=== PATIENT | male | born 1985 | race Caucasian/White ===

== ENCOUNTER 2019-04-12 15:59 | Emergency (ER) | payer OTHER, MEDICAID, SELFPAY ==
[2019-04-12 16:01] VITALS: BP 109/59; PULSE 71; RESP 18; TEMP 36.4; O2SAT 97; BMI 22.4
--- NOTE | 2019-04-12 16:31 | DI.CT.S_ITS ---
PROCEDURE: CT HEAD/BRAIN WO CON INDICATIONS: head pressure, hearing voices TECHNIQUE: Noncontrast 4.5 mm thick angled axial sections acquired from the foramen magnum to the vertex, with coronal and sagittal reformats. For radiation dose reduction, the following was used: automated exposure control, adjustment of mA and/or kV according to patient size. COMPARISON: None. FINDINGS: Image quality: Excellent. CSF spaces: Basal cisterns are patent. No extra-axial fluid collections. Ventricles are normal in size and shape. Brain: No midline shift. No intracranial masses or hemorrhage. Yanez-white matter interface is normal. Skull and face: Calvarium and visualized facial bones are intact, without suspicious lesions. Sinuses: Visualized sinuses and mastoids are clear. IMPRESSION: No acute intracranial process. Dictated by: Baljit Pryor M.D. on 04/12/2019 at 16:59 Approved by: Baljit Pryor M.D. on 04/12/2019 at 17:05
--- NOTE | 2019-04-12 17:26 | ED.NEUROSD ---
HPI - Neuro Symptoms/Deficit <SUSANNAH Villareal - Last Filed: 04/12/19 17:31> General Chief Complaint: Neuro Symptoms/Deficit Stated Complaint: head pressure Time Seen by Provider: 04/12/19 16:28 Source: patient Mode of arrival: ambulatory Limitations: no limitations History of Present Illness HPI Narrative: The patient is a 33 year male current smoker with history of opiate dependence and anxiety presents for chief complaint of head pressure. He states he has had head pressure for the past year. He states that the head pressures on the left side of his head. Waxes wanes. He has not tried any Tylenol or Motrin for it. He states that he comes in today as he is concerned about a tumor or some series etiology. He states that his worry about the head pressure is creating anxiety. He denies any seizures. Denies any nausea vomiting diarrhea. Denies any lightheadedness, dizziness, fevers, neck pain back pain abdominal pain or any other acute concerns. He states that the head pressure is not excessively bad today, he just wanted to get it checked out in order to help alleviate his anxiety. The patient denies any trauma. On Anticoagulants: No Related Data Home Medications Medication Instructions Recorded Confirmed No Known Home Medications 04/12/19 04/12/19 Allergies Allergy/AdvReac Type Severity Reaction Status Date / Time No Known Drug Allergies Allergy Verified 05/26/18 14:13 Review of Systems <SUSANNAH Villareal - Last Filed: 04/12/19 17:31> Review of Systems GENERAL: Denies chills, fatigue, malaise, fever, sweats. HEENT: See HPI RESPIRATORY: Denies dyspnea, cough, wheezing, hemoptysis, sputum. CARDIOVASCULAR: Denies chest pain, palpitations, orthopnea, edema, GASTROINTESTINAL: Denies nausea, vomiting, abdominal pain, diarrhea, constipation, melena. : Denies dysuria, frequency, incontinence, hematuria, urinary retention. MUSCULOSKELETAL: denies weakness, joint pain, or bony pain SKIN: Denies rash, skin lesions, or other NEUROLOGIC: Denies weakness, headache, numbness, change in speech, confusion, seizures, incoordination. PSYCHIATRIC: No concerning psychosocial issues. 12 point review of systems is negative except for those stated above PFSH <[facility] - Last Filed: 04/12/19 17:31> Social History Smoking Status: Current every day smoker Social History Smoking Status: Current every day smoker Exam <RAKESH Villareal - Last Filed: 04/12/19 17:31> Narrative Exam Narrative: GENERAL: This is a well-nourished, well-developed patient, no acute distress HEAD: Atraumatic. Normocephalic. No temporal or scalp tenderness. EYES: Pupils equal round and reactive. Extraocular motions intact. No scleral icterus. No injection or drainage. No nystagmus noted. ENT: Nose without bleeding, purulent drainage or septal hematoma. Throat without erythema, tonsillar hypertrophy or exudate. Uvula midline. Airway patent. NECK: Trachea midline. No JVD or lymphadenopathy. Supple, nontender, no meningeal signs. CARDIOVASCULAR: Regular rate and rhythm without murmurs, gallops, or rubs. RESPIRATORY: Clear to auscultation. Breath sounds equal bilaterally. No wheezes, rales, or rhonchi. No cough. No increased respiratory effort. No accessory muscle use. GASTROINTESTINAL: Abdomen soft, non-tender, nondistended. No hepato-splenomegaly, or palpable masses. No guarding. EXTREMITIES: No clubbing, cyanosis, or edema. No joint tenderness, effusion, or edema noted. BACK: Nontender without deformity or crepitance. No flank tenderness. NEURO: AOx3. Stable gait. Strength is equal upper and lower extremities bilaterally. No gross cranial nerve deficit. Clear speech. SKIN: No rash or erythema. Initial Vital Signs Initial Vital Signs: Vital Signs Temperature 97.6 F 04/12/19 16:01 Pulse Rate 71 04/12/19 16:01 Respiratory Rate 18 04/12/19 16:01 Blood Pressure 109/59 L 04/12/19 16:01 Pulse Oximetry 97 04/12/19 16:01 <Nichelle Ball DO - Last Filed: 04/12/19 19:16> Initial Vital Signs Initial Vital Signs: Vital Signs Temperature 97.6 F 04/12/19 16:01 Pulse Rate 71 04/12/19 16:01 Respiratory Rate 18 04/12/19 16:01 Blood Pressure 109/59 L 04/12/19 16:01 Pulse Oximetry 97 04/12/19 16:01 Course <RAKESH Villareal - Last Filed: 04/12/19 17:31> Orders Ordered: ED Orders 04/12/19 16:31 CT head/brain wo con Stat Vital Signs - 8 hr 04/12/19 16:01 04/12/19 17:55 04/12/19 17:56 Temperature 97.6 F Pulse Rate 71 58 L 58 L Respiratory Rate 18 18 Blood Pressure 109/59 L 104/61 Blood Pressure [Left Arm] 104/61 Pulse Oximetry 97 100 100 <Nichelle Ball DO - Last Filed: 04/12/19 19:16> Orders Ordered: ED Orders 04/12/19 16:31 CT head/brain wo con Stat Vital Signs - 8 hr 04/12/19 16:01 04/12/19 17:55 04/12/19 17:56 Temperature 97.6 F Pulse Rate 71 58 L 58 L Respiratory Rate 18 18 Blood Pressure 109/59 L 104/61 Blood Pressure [Left Arm] 104/61 Pulse Oximetry 97 100 100 MDM - Neuro Symptoms/Deficit <RAKESH Villareal - Last Filed: 04/12/19 17:31> Imaging Data CT scan - head: Radiologist's impression: [place] [address] CT Scan Report Signed Patient: Wale Todd KMR#: [id number] : 1985Acct:[id number] Age/Sex: 33 / MDate of Service: 04/12/19 Loc: ED Accession Number: [id number] Procedure: CT head/brain wo con Ordering Provider: Nichelle Blanchard PROCEDURE: CT HEAD/BRAIN WO CON INDICATIONS: head pressure, hearing voices TECHNIQUE: Noncontrast 4.5 mm thick angled axial sections acquired from the foramen magnum to the vertex, with coronal and sagittal reformats. For radiation dose reduction, the following was used: automated exposure control, adjustment of mA and/or kV according to patient size. COMPARISON: None. FINDINGS: Image quality: Excellent. CSF spaces: Basal cisterns are patent. No extra-axial fluid collections. Ventricles are normal in size and shape. Brain: No midline shift. No intracranial masses or hemorrhage. Yanez-white matter interface is normal. Skull and face: Calvarium and visualized facial bones are intact, without suspicious lesions. Sinuses: Visualized sinuses and mastoids are clear. IMPRESSION: No acute intracranial process. Dictated by: Baljit Pryor M.D. on 04/12/2019 at 16:59 Approved by: Baljit Pryor M.D. on 04/12/2019 at 17:05 [facility] Narrative Medical decision making narrative: The patient is a 33-year-old male who presents with a year of head pressure. He CT scan was normal. He has no neurological deficits. Given that this has been going on for urine no conservative measures have been tried, I strongly suggest that the patient try ibuprofen and/or Tylenol. Encouraged her to follow up with PCP in come back to the ER for any acute concerns such as seizure activity, concern for heart attack or stroke. No questions or concerns at discharge. The patient denies any pain medications such as Tylenol or Motrin throughout his stay in the emergency department. Discharge Plan Departure Patient Disposition: Home Clinical Impression: Headache Qualifiers: Headache type: unspecified Headache chronicity pattern: unspecified pattern Intractability: not intractable Qualified Code(s): R51 - Headache Discharge Date/Time: 04/12/19 17:56 Interventions: ED Discharge Assessment Last Done: 04/12/19 17:56 Instructions: DI for Headache Activity Restrictions/Additional Instructions: Your head CT had no acute findings. I suggest that you try Tylenol or Motrin for your pain. Please follow up with primary care provider. Please come back to the emergency department for any acute concerns such as seizure like activity, concern of heart attack or stroke. Prescriptions: No Action No Known Home Medications RF: 0 Referrals: Didier Dimas MD [Physician] - <Nichelle Ball DO - Last Filed: 04/12/19 19:16> Cosign ED Attending Cosignature Attestation: I was immediately available in the department for consultation. This documentation has been reviewed and I agree with assessment and plan. Supervised by Nichelle Ball DO
--- NOTE | 2019-04-12 17:31 | ED_ITS ---
HPI - Neuro Symptoms/Deficit <SUSANNAH Villareal - Last Filed: 04/12/19 17:31> General Chief Complaint: Neuro Symptoms/Deficit Stated Complaint: head pressure Time Seen by Provider: 04/12/19 16:28 Source: patient Mode of arrival: ambulatory Limitations: no limitations History of Present Illness HPI Narrative: The patient is a 33 year male current smoker with history of opiate dependence and anxiety presents for chief complaint of head pressure. He states he has had head pressure for the past year. He states that the head pressures on the left side of his head. Waxes wanes. He has not tried any Tylenol or Motrin for it. He states that he comes in today as he is concerned about a tumor or some series etiology. He states that his worry about the head pressure is creating anxiety. He denies any seizures. Denies any nausea vomiting diarrhea. Denies any lightheadedness, dizziness, fevers, neck pain back pain abdominal pain or any other acute concerns. He states that the head pressure is not excessively bad today, he just wanted to get it checked out in order to help alleviate his anxiety. The patient denies any trauma. On Anticoagulants: No Related Data Home Medications Medication Instructions Recorded Confirmed No Known Home Medications 04/12/19 04/12/19 Allergies Allergy/AdvReac Type Severity Reaction Status Date / Time No Known Drug Allergies Allergy Verified 05/26/18 14:13 Review of Systems <SUSANNAH Villareal - Last Filed: 04/12/19 17:31> Review of Systems GENERAL: Denies chills, fatigue, malaise, fever, sweats. HEENT: See HPI RESPIRATORY: Denies dyspnea, cough, wheezing, hemoptysis, sputum. CARDIOVASCULAR: Denies chest pain, palpitations, orthopnea, edema, GASTROINTESTINAL: Denies nausea, vomiting, abdominal pain, diarrhea, constipation, melena. : Denies dysuria, frequency, incontinence, hematuria, urinary retention. MUSCULOSKELETAL: denies weakness, joint pain, or bony pain SKIN: Denies rash, skin lesions, or other NEUROLOGIC: Denies weakness, headache, numbness, change in speech, confusion, seizures, incoordination. PSYCHIATRIC: No concerning psychosocial issues. 12 point review of systems is negative except for those stated above PFSH <[facility] - Last Filed: 04/12/19 17:31> Social History Smoking Status: Current every day smoker Social History Smoking Status: Current every day smoker Exam <RAKESH Villareal - Last Filed: 04/12/19 17:31> Narrative Exam Narrative: GENERAL: This is a well-nourished, well-developed patient, no acute distress HEAD: Atraumatic. Normocephalic. No temporal or scalp tenderness. EYES: Pupils equal round and reactive. Extraocular motions intact. No scleral icterus. No injection or drainage. No nystagmus noted. ENT: Nose without bleeding, purulent drainage or septal hematoma. Throat without erythema, tonsillar hypertrophy or exudate. Uvula midline. Airway patent. NECK: Trachea midline. No JVD or lymphadenopathy. Supple, nontender, no meningeal signs. CARDIOVASCULAR: Regular rate and rhythm without murmurs, gallops, or rubs. RESPIRATORY: Clear to auscultation. Breath sounds equal bilaterally. No wheezes, rales, or rhonchi. No cough. No increased respiratory effort. No accessory muscle use. GASTROINTESTINAL: Abdomen soft, non-tender, nondistended. No hepato- splenomegaly, or palpable masses. No guarding. EXTREMITIES: No clubbing, cyanosis, or edema. No joint tenderness, effusion, or edema noted. BACK: Nontender without deformity or crepitance. No flank tenderness. NEURO: AOx3. Stable gait. Strength is equal upper and lower extremities bilaterally. No gross cranial nerve deficit. Clear speech. SKIN: No rash or erythema. Initial Vital Signs Initial Vital Signs: Vital Signs Temperature 97.6 F 04/12/19 16:01 Pulse Rate 71 04/12/19 16:01 Respiratory Rate 18 04/12/19 16:01 Blood Pressure 109/59 L 04/12/19 16:01 Pulse Oximetry 97 04/12/19 16:01 <Nichelle Ball DO - Last Filed: 04/12/19 19:16> Initial Vital Signs Initial Vital Signs: Vital Signs Temperature 97.6 F 04/12/19 16:01 Pulse Rate 71 04/12/19 16:01 Respiratory Rate 18 04/12/19 16:01 Blood Pressure 109/59 L 04/12/19 16:01 Pulse Oximetry 97 04/12/19 16:01 Course <RAKESH Villareal - Last Filed: 04/12/19 17:31> Orders Ordered: ED Orders 04/12/19 16:31 CT head/brain wo con Stat Vital Signs - 8 hr 04/12/19 16:01 04/12/19 17:55 04/12/19 17:56 Temperature 97.6 F Pulse Rate 71 58 L 58 L Respiratory Rate 18 18 Blood Pressure 109/59 L 104/61 Blood Pressure [Left Arm] 104/61 Pulse Oximetry 97 100 100 <Nichelle Ball DO - Last Filed: 04/12/19 19:16> Orders Ordered: ED Orders 04/12/19 16:31 CT head/brain wo con Stat Vital Signs - 8 hr 04/12/19 16:01 04/12/19 17:55 04/12/19 17:56 Temperature 97.6 F Pulse Rate 71 58 L 58 L Respiratory Rate 18 18 Blood Pressure 109/59 L 104/61 Blood Pressure [Left Arm] 104/61 Pulse Oximetry 97 100 100 MDM - Neuro Symptoms/Deficit <RAKESH Villareal - Last Filed: 04/12/19 17:31> Imaging Data CT scan - head: Radiologist's impression: [place] [address] CT Scan Report Signed Patient: Wale Todd KMR#: [id number] : 1985Acct:[id number] Age/Sex: 33 / MDate of Service: 04/12/19 Loc: ED Accession Number: [id number] Procedure: CT head/brain wo con Ordering Provider: Nichelle Blanchard PROCEDURE: CT HEAD/BRAIN WO CON INDICATIONS: head pressure, hearing voices TECHNIQUE: Noncontrast 4.5 mm thick angled axial sections acquired from the foramen magnum to the vertex, with coronal and sagittal reformats. For radiation dose reduction, the following was used: automated exposure control, adjustment of mA and/or kV according to patient size. COMPARISON: None. FINDINGS: Image quality: Excellent. CSF spaces: Basal cisterns are patent. No extra-axial fluid collections. Ventricles are normal in size and shape. Brain: No midline shift. No intracranial masses or hemorrhage. Yanez-white matter interface is normal. Skull and face: Calvarium and visualized facial bones are intact, without suspicious lesions. Sinuses: Visualized sinuses and mastoids are clear. IMPRESSION: No acute intracranial process. Dictated by: Baljit Pryor M.D. on 04/12/2019 at 16:59 Approved by: Baljit Pryor M.D. on 04/12/2019 at 17:05 [facility] Narrative Medical decision making narrative: The patient is a 33-year-old male who presents with a year of head pressure. He CT scan was normal. He has no neurological deficits. Given that this has been going on for urine no conservative measures have been tried, I strongly suggest that the patient try ibuprofen and/or Tylenol. Encouraged her to follow up with PCP in come back to the ER for any acute concerns such as seizure activity, concern for heart attack or stroke. No questions or concerns at discharge. The patient denies any pain medications such as Tylenol or Motrin throughout his stay in the emergency department. Discharge Plan Departure Patient Disposition: Home Clinical Impression: Headache Qualifiers: Headache type: unspecified Headache chronicity pattern: unspecified pattern Intractability: not intractable Qualified Code(s): R51 - Headache Discharge Date/Time: 04/12/19 17:56 Interventions: ED Discharge Assessment Last Done: 04/12/19 17:56 Instructions: DI for Headache Activity Restrictions/Additional Instructions: Your head CT had no acute findings. I suggest that you try Tylenol or Motrin for your pain. Please follow up with primary care provider. Please come back to the emergency department for any acute concerns such as seizure like activity, concern of heart attack or stroke. Prescriptions: No Action No Known Home Medications RF: 0 Referrals: Didier Dimas MD [Physician] - <Nichelle Ball DO - Last Filed: 04/12/19 19:16> Cosign ED Attending Cosignature Attestation: I was immediately available in the department for consultation. This documentation has been reviewed and I agree with assessment and plan. Supervised by Nichelle Ball DO
[2019-04-12 17:55] VITALS: BP 104/61; PULSE 58; O2SAT 100
[2019-04-12 17:56] VITALS: BP 104/61; PULSE 58; RESP 18; O2SAT 100
== END 2019-04-12 17:56 | disposition home or self-care (01) ==
PROVIDERS: Emergency Provider Nurse Practitioner Family
DX: R51 Headache (principal)
CPT/HCPCS: 70450; 99282; 99284

== ENCOUNTER 2019-04-28 18:44 | Emergency (ER) | payer OTHER, MEDICAID, SELFPAY ==
[2019-04-28 18:52] VITALS: BP 159/77; PULSE 112; RESP 18; TEMP 36.9; O2SAT 97; BMI 22.4
--- NOTE | 2019-04-28 19:39 | ED.HA ---
HPI - Headache <RAKESH Villareal - Last Filed: 04/28/19 19:54> General Chief Complaint: Headache Stated Complaint: migraine Time Seen by Provider: 04/28/19 18:57 Source: patient Mode of arrival: ambulatory Limitations: no limitations History of Present Illness HPI Narrative: The patient is a 33-year-old male current smoker with history of headache and continuous opiate dependence who presents with a chief complaint of headache for the past several months as well as concerned about a broken tooth and being ?hypnotized. He denies any fevers nausea vomiting or diarrhea. He states he recently started smoking some new marijuana and think this might be related to it. The patient was evaluated for headache earlier this month and had a negative head CT. He has not taken any Tylenol or Motrin. He has not followed up with primary care provider. He states he broke his tooth 2 days ago. He states he was on his way home and it fell out. He states that the pain radiates from his tooth. He states that he has not used any drugs or alcohol other than marijuana. Related Data Home Medications Medication Instructions Recorded Confirmed No Known Home Medications 04/12/19 04/28/19 Allergies Allergy/AdvReac Type Severity Reaction Status Date / Time No Known Drug Allergies Allergy Verified 04/28/19 18:52 Review of Systems <RAKESH Villareal - Last Filed: 04/28/19 19:54> Review of Systems GENERAL: Denies chills, fatigue, malaise, fever, sweats. HEENT: See HPI RESPIRATORY: Denies dyspnea, cough, wheezing, hemoptysis, sputum. CARDIOVASCULAR: Denies chest pain, palpitations, orthopnea, edema, GASTROINTESTINAL: Denies nausea, vomiting, abdominal pain, diarrhea, constipation, melena. : Denies dysuria, frequency, incontinence, hematuria, urinary retention. MUSCULOSKELETAL: denies weakness, joint pain, or bony pain SKIN: Denies rash, skin lesions, or other NEUROLOGIC: See HPI PSYCHIATRIC: No concerning psychosocial issues. 12 point review of systems is negative except for those stated above PFSH <RAKESH Villareal - Last Filed: 04/28/19 19:54> Social History Smoking Status: Current every day smoker Exam <RAKESH Villareal - Last Filed: 04/28/19 19:54> Narrative Exam Narrative: GENERAL: Unkempt young male in no acute distress EYES: Pupils equal round and reactive. Extraocular motions intact. No scleral icterus. No injection or drainage. ENT: Nose without bleeding, purulent drainage or septal hematoma. Throat without erythema, tonsillar hypertrophy or exudate. Uvula midline. Airway patent. Broken 2nd molar left lower jaw NECK: Trachea midline. No JVD or lymphadenopathy. Supple, nontender, no meningeal signs. CARDIOVASCULAR: Regular rate and rhythm RESPIRATORY: Coarse to auscultation. Breath sounds equal bilaterally. No wheezes, rales, or rhonchi. No cough on exam. SKIN: No rash or erythema of visible skin. Initial Vital Signs Initial Vital Signs: Vital Signs Temperature 98.5 F 04/28/19 18:52 Pulse Rate 112 H 04/28/19 18:52 Respiratory Rate 18 04/28/19 18:52 Blood Pressure 159/77 H 04/28/19 18:52 Pulse Oximetry 97 04/28/19 18:52 <Carlyle Carrillo DO - Last Filed: 04/28/19 21:55> Initial Vital Signs Initial Vital Signs: Vital Signs Temperature 98.5 F 04/28/19 18:52 Pulse Rate 112 H 04/28/19 18:52 Respiratory Rate 18 04/28/19 18:52 Blood Pressure 159/77 H 04/28/19 18:52 Pulse Oximetry 97 04/28/19 18:52 Scores <RAKESH Villareal - Last Filed: 04/28/19 19:54> GCS [place] coma scale eye opening: Spontaneous Rosmery coma scale verbal response: Orientated [place] coma scale motor response: Obey commands [place] coma scale total score: 15 Course <RAKESH Villareal - Last Filed: 04/28/19 19:54> Vital Signs - 8 hr 04/28/19 18:52 Temperature 98.5 F Pulse Rate 112 H Respiratory Rate 18 Blood Pressure 159/77 H Pulse Oximetry 97 <Carlyle Carrillo DO - Last Filed: 04/28/19 21:55> Vital Signs - 8 hr 04/28/19 18:52 Temperature 98.5 F Pulse Rate 112 H Respiratory Rate 18 Blood Pressure 159/77 H Pulse Oximetry 97 MDM - Headache <Nichelle Blanchard, PATIENT CARE-[facility] - Last Filed: 04/28/19 19:54> MDM Narrative Medical decision making narrative: The patient is a 33-year-old male who presents with various complaints including headache, fear of being possessed, broken tooth. I discussed at length use of pain medications such as Toradol, antibiotics for dental infection, medication help him calm down. However the patient requested another CT scan for his head. I stated that since he just had 1 earlier this month, we would have to try medications 1st. The patient then stated he might leave if I would not do a CT scan immediately. I reiterated that I would not be ordering a CT scan immediately and left to order medications his headache. The patient then walked out of the department when I was outside of the room. He left against medical advice. Discharge Plan Departure Patient Disposition: Left Against Medical Advice Clinical Impression: Headache, Left against medical advice Discharge Date/Time: 04/28/19 19:21 Interventions: ED Discharge Assessment Last Done: 04/28/19 19:18 Prescriptions: No Action No Known Home Medications RF: 0 Stand Alone Forms: Against Medical Advice <Carlyle Carrillo DO - Last Filed: 04/28/19 21:55> [place] ED Attending Kristenature Attestation: I was available for consultation during this patient's emergency department encounter
== END 2019-04-28 19:21 | disposition left against medical advice (07) ==
PROVIDERS: Emergency Provider Nurse Practitioner Family
DX: R51 Headache (principal); Z53.21 Procedure and treatment not carried out due to patient leaving prior to being seen by health care provider
CPT/HCPCS: 99282

== ENCOUNTER 2019-06-09 19:31 | Emergency (ER) | payer OTHER, MEDICAID, SELFPAY ==
[2019-06-09 19:37] VITALS: BP 151/91; PULSE 125; RESP 16; TEMP 36.5; O2SAT 99; BMI 23.0
--- NOTE | 2019-06-09 19:38 | DI.RAD.S_ITS ---
PROCEDURE: XR FINGER LT MIN 2V INDICATIONS: table saw injury TECHNIQUE: AP hand, 2 views of the left second finger(s) acquired. COMPARISON: None. FINDINGS: Bones: There is a laceration/fracture of the distal tuft of the left second digit. No other fracture or dislocation. Soft tissues: No suspicious soft tissue calcifications. No unexpected radiopaque foreign bodies. IMPRESSION: Laceration/fracture of the distal phalanx of the left second digit. Dictated by: Sherin Jerry M.D. on 06/09/2019 at 20:03 Approved by: Sherin Jerry M.D. on 06/09/2019 at 20:04
--- NOTE | 2019-06-09 20:11 | ED.WOUNDLAC ---
HPI - Wound/Laceration <RAKESH Villareal - Last Filed: 06/09/19 21:20> General Chief Complaint: Wound/Laceration Stated Complaint: states cut the tip of his index finger left hand Time Seen by Provider: 06/09/19 19:33 Source: patient Mode of arrival: Ambulatory Limitations: no limitations History of Present Illness HPI narrative: The patient is a 33-year-old male current smoker with history of headaches who presents for chief complaint of a laceration to his left index finger. He states he cut using a table saw. He states it happened 45 minutes prior to arrival. He is not sure when his last tetanus was. He states he has full range of motion. He states he wants a bandage and to leave. Related Data Previous Rx's Medication Instructions Recorded cephalexin 500 mg PO QID #40 cap 06/09/19 Allergies Allergy/AdvReac Type Severity Reaction Status Date / Time No Known Drug Allergies Allergy Verified 04/28/19 18:52 Review of Systems <RAKESH Villareal - Last Filed: 06/09/19 21:20> Review of Systems Narrative: GENERAL: Denies chills, fatigue, malaise, fever, sweats. HEENT: Denies sinus pain, ear pain, sore throat, difficulty swallowing, dizziness. RESPIRATORY: Denies dyspnea, cough, wheezing, hemoptysis, sputum. CARDIOVASCULAR: Denies chest pain, palpitations, orthopnea, edema, GASTROINTESTINAL: Denies nausea, vomiting, abdominal pain, diarrhea, constipation, melena. : Denies dysuria, frequency, incontinence, hematuria, urinary retention. MUSCULOSKELETAL: See HPI SKIN: See HPI NEUROLOGIC: Denies weakness, headache, numbness, change in speech, confusion, seizures, incoordination. PSYCHIATRIC: No concerning psychosocial issues. 12 point review of systems is negative except for those stated above PFSH <RAKESH Villareal - Last Filed: 06/09/19 21:20> Social History Smoking Status: Current every day smoker Exam <RAKESH Villareal - Last Filed: 06/09/19 21:20> Narrative Exam Narrative: GENERAL: This is a well-nourished, well-developed patient, appears anxious HEAD: Atraumatic. Normocephalic. No temporal or scalp tenderness. EYES: Pupils equal round and reactive. Extraocular motions intact. No scleral icterus. No injection or drainage. ENT: Nose without bleeding, purulent drainage or septal hematoma. Throat without erythema, tonsillar hypertrophy or exudate. Uvula midline. Airway patent. NECK: Trachea midline. No JVD or lymphadenopathy. Supple, nontender, no meningeal signs. CARDIOVASCULAR: Tachycardic rate and regular rhythm RESPIRATORY no cough. No increased respiratory effort. No accessory muscle use. EXTREMITIES: Full range of motion noted left index finger. Laceration noted to tip of left index finger, with nail involvement. Oozing blood. Controlled bleeding. BACK: Nontender without deformity or crepitance. No flank tenderness. NEURO: AOx3. SKIN: See extremity exam Initial Vital Signs Initial Vital Signs: Vital Signs Temperature 97.7 F 06/09/19 19:37 Pulse Rate 125 H 06/09/19 19:37 Respiratory Rate 16 06/09/19 19:37 Blood Pressure 151/91 H 06/09/19 19:37 Pulse Oximetry 99 06/09/19 19:37 <Carlyle Carrillo DO - Last Filed: 06/09/19 21:22> Initial Vital Signs Initial Vital Signs: Vital Signs Temperature 97.7 F 06/09/19 19:37 Pulse Rate 125 H 06/09/19 19:37 Respiratory Rate 16 06/09/19 19:37 Blood Pressure 151/91 H 06/09/19 19:37 Pulse Oximetry 99 06/09/19 19:37 Procedures <RAKESH Villareal - Last Filed: 06/09/19 21:20> Orthopedic Splinting/Casting Injury #1: Side: left Upper Extremity Injury Location: finger Post splinting neuro exam: intact Post splinting vascular exam: intact Placed by: Nursing Course <RAKESH Villareal - Last Filed: 06/09/19 21:20> Orders Ordered: ED Orders 06/09/19 19:38 XR finger LT min 2V Stat Discontinued Medications Cefazolin Sodium (Keflex 250 Mg Prepack) 1 bottle MISC SEEINSTR ONE Stop: 06/09/19 21:13 Diphtheria/Tetanus/Acell Pertussis (Adacel) 0.5 ml IM .ONCE ONE Stop: 06/09/19 19:41 Last Admin: 06/09/19 20:21 Dose: 0.5 ml Documented by: MEGAN Cefazolin Sodium 2 gm/ Sodium (Chloride) 100 mls @ 200 mls/hr IV NOW ONE Stop: 06/09/19 20:13 Last Infusion: 06/09/19 21:13 Dose: 0 mls/hr Documented by: Admin: 06/09/19 20:38 Dose: 200 mls/hr Documented by: MEGAN Vital Signs Vital signs: Vital Signs - 8 hr 06/09/19 19:37 06/09/19 21:21 Temperature 97.7 F Pulse Rate 125 H 109 H Respiratory Rate 16 16 Blood Pressure 151/91 H Blood Pressure [Right Arm] 131/76 Pulse Oximetry 99 100 <Carlyle Carrillo DO - Last Filed: 06/09/19 21:22> Orders Ordered: ED Orders 06/09/19 19:38 XR finger LT min 2V Stat Discontinued Medications Cefazolin Sodium (Keflex 250 Mg Prepack) 1 bottle MISC SEEINSTR ONE Stop: 06/09/19 21:13 Diphtheria/Tetanus/Acell Pertussis (Adacel) 0.5 ml IM .ONCE ONE Stop: 06/09/19 19:41 Last Admin: 06/09/19 20:21 Dose: 0.5 ml Documented by: MEGAN Cefazolin Sodium 2 gm/ Sodium (Chloride) 100 mls @ 200 mls/hr IV NOW ONE Stop: 06/09/19 20:13 Last Infusion: 06/09/19 21:13 Dose: 0 mls/hr Documented by: Admin: 06/09/19 20:38 Dose: 200 mls/hr Documented by: MEGAN Vital Signs Vital signs: Vital Signs - 8 hr 06/09/19 19:37 06/09/19 21:21 Temperature 97.7 F Pulse Rate 125 H 109 H Respiratory Rate 16 16 Blood Pressure 151/91 H Blood Pressure [Right Arm] 131/76 Pulse Oximetry 99 100 MDM - Wound/Laceration <RAKESH Villareal - Last Filed: 06/09/19 21:20> Imaging Data finger xray : Radiologist's impression: [address] [address] XRay Report Signed Patient: Wale Todd KMR#: [id number] : 1985Acct:[id number] Age/Sex: 33 / MDate of Service: 06/09/19 Loc: ED Accession Number: [id number] Procedure: XR finger LT min 2V Ordering Provider: Nichelle Blanchard PROCEDURE: XR FINGER LT MIN 2V INDICATIONS: table saw injury TECHNIQUE: AP hand, 2 views of the left second finger(s) acquired. COMPARISON: None. FINDINGS: Bones: There is a laceration/fracture of the distal tuft of the left second digit. No other fracture or dislocation. Soft tissues: No suspicious soft tissue calcifications. No unexpected radiopaque foreign bodies. IMPRESSION: Laceration/fracture of the distal phalanx of the left second digit. Dictated by: Sherin Jerry M.D. on 06/09/2019 at 20:03 Approved by: Sherin Jerry M.D. on 06/09/2019 at 20:04 [facility] Narrative Medical decision making narrative: The patient is a 33 year old male who presents with a chief complaint of laceration after a exposure to a table saw. His tetanus was updated. The patient was reticent to allow me to do a thorough exam, stating he just wanted a Band-Aid. I did convince him to do a x-ray, which showed an open fracture. He was given 2 g IV Ancef. I did start him Keflex. The patient again refused to let me thoroughly evaluate the wound, even when I offered him lidocaine. I discussed at length monitoring for signs and symptoms of continued or worsening infection including decreased range of motion, redness pus fevers etc. I encouraged him to follow up with primary care provider as well as [facility]. Discussed coming back to the emergency department for any acute concerns. Patient has no questions or concerns upon discharge states understanding of follow-up care as well as return precautions. Patient declined pain medication throughout his stay and declined a prescription thereof. Again the patient did refused to let me do a thorough evaluation of his wound several times. I discussed the possible side effects of lack of thorough evaluation including infection, loss of limb or life. Discharge Plan Departure Patient Disposition: Home Clinical Impression: Open fracture of phalanx of left index finger Qualifiers: Encounter type: initial encounter Phalanx: distal Fracture alignment: nondisplaced Qualified Code(s): S62.661B - Nondisplaced fracture of distal phalanx of left index finger, initial encounter for open fracture Instructions: DI for Finger Fracture, DI for Open Fracture Activity Restrictions/Additional Instructions: Please follow up with [facility]. I have given you the contact information. Please use [id number] medications for pain as needed. Please use rest ice compression elevation. Please monitor for fever, spreading redness and pus. These are signs of infection and need prompt attention Please come back to the emergency department for any acute concerns. Prescriptions: New cephalexin 500 mg capsule 500 mg PO QID Qty: 40 RF: 0 Referrals: [facility] [Provider Group] <Carlyle Carrillo DO - Last Filed: 06/09/19 21:22> Sign Out Provider Sign Out Attestation: I was available for consultation during this patient's emergency department visit. This chart is signed by myself for administrative purposes only. I did not have direct contact with this patient during this visit. They were seen independently by the APC.
[2019-06-09] MEDS: TET,DIPH,PERTUSS(ACELL),VAC/PF 0.5 ML SYRINGE IM (20:21)
[2019-06-09] MEDS: CEFAZOLIN VIAL 2 GM in SODIUM CHLORIDE 0.9% 100 ML 200 ML IV (20:38)
[2019-06-09 21:21] VITALS: BP 131/76; PULSE 109; RESP 16; O2SAT 100
[2019-06-09] MEDS: cephALEXin 250 MG PREPACK 1 BOTTLE MISC (21:25)
== END 2019-06-09 21:34 | disposition home or self-care (01) ==
PROVIDERS: Emergency Provider Nurse Practitioner Family
DX: S62.661B Nondisplaced fracture of distal phalanx of left index finger, initial encounter for open fracture (principal); W31.2XXA Contact with powered woodworking and forming machines, initial encounter; Z23 Encounter for immunization
CPT/HCPCS: 29130; 73140; 90471; 96365; 99283; 99284; 90715; J0690

== ENCOUNTER 2019-07-17 03:37 | Emergency (ER) | payer OTHER, MEDICAID, SELFPAY ==
--- NOTE | 2019-07-17 04:02 | ED_ITS ---
HPI - Psych General Chief Complaint: Psychiatric Symptoms Stated Complaint: Mental Health issues wants to know about lobotomy Time Seen by Provider: 07/17/19 03:55 Source: patient and family (His sister and mother) Mode of arrival: Ambulatory Limitations: altered mental status History of Present Illness HPI Narrative: The patient is complaining of recurrent left parietal headaches for approximately 4 months. He is complaining of computers been attached to his brain. He has a letter written within the past week about mind control on moved controlling hour feels like he is hooked up to machines. He denies recent illness. He has had no fever or chills. He initially denied visual changes, but apparently has occasional scotoma. He has no ENT complaints are neck pain. He had minor head injuries a child, nothing recent. The current thought process has apparently involved with the last few months. He has been in intermediate earlier this year. He is intermittently cooperative then accusatory toward ER staff. He has psychosis, there is no suicidal ideation. His mother mentioned suicidal thoughts and he declined. Primary ER notes acknowledge recurrent headaches, anxiety, and ongoing opiate dependence. Related Data Previous Rx's Medication Instructions Recorded cephalexin 500 mg PO QID #40 cap 06/09/19 Allergies Allergy/AdvReac Type Severity Reaction Status Date / Time No Known Drug Allergies Allergy Verified 04/28/19 18:52 Review of Systems Review of Systems ROS Unobtainable: All systems reviewed & are unremarkable except as noted in HPI and below Constitutional Constitutional: Denies fever(s), Reports headache(s), Denies lethargy and Denies weakness Eyes Eyes: Reports as per HPI, Denies blind spots, Denies blurry vision and Reports change in vision ENT Ears, Nose, Mouth, and Throat: Denies change in voice, Denies vertigo, Denies dizziness, Reports headache(s), Denies neck pain and Denies sore throat Cardiovascular Cardiovascular: Denies chest pain, Denies palpitations and Denies dyspnea Respiratory Respiratory: Denies cough, Denies dyspnea and Denies wheezing Gastrointestinal Gastrointestinal: Denies abdominal pain, Denies change in bowel habits, Denies diarrhea, Denies nausea and Denies vomiting Musculoskeletal Musculoskeletal: Denies neck pain Integumentary/Breasts Skin/Breast: Denies pruritus, Denies erythema, Denies rash and Denies wounds Neurologic Neurologic: Denies vertigo, Denies dizziness, Reports headache(s) and Denies weakness Endocrine Endocrine: Denies palpitations Allergic/Immunologic Allergic/Immunologic: Denies wheezing Patient History Medical History (Updated 07/17/19 @ 05:59 by Ziggy Rodriguez MD) Anxiety (Acute) Opiate dependence, continuous (01/12/17) Surgical History (Updated 07/17/19 @ 04:24 by Ziggy Rodriguez MD) No significant past surgical history (Acute) Social History Smoking Status: Current every day smoker alcohol intake frequency: a few times a week Substance Use Type: marijuana Exam Initial Vital Signs Initial Vital Signs: Vital Signs Temperature 98.2 F 07/17/19 04:03 Pulse Rate 95 H 07/17/19 04:03 Respiratory Rate 16 07/17/19 04:03 Blood Pressure 160/102 H 07/17/19 04:03 Pulse Oximetry 95 07/17/19 04:03 Const General: cooperative and well developed Nutritional Appearance: well nourished Orientation: alert, awake and oriented x3 HENMT Head: normocephalic and atraumatic Nose: external nose normal and No nasal discharge Face and sinus: sinuses nontender and face symmetric Mouth: oral mucosae normal and moist mucous membranes Throat: tonsils normal and uvula midline Eyes General: appearance normal, both eyes and all related structures Eyelids: eyelids normal Conjunctivae: conjunctivae normal Sclera: sclerae normal Pupils: PERRL EOM: EOM intact bilaterally Neck Neck: normal visual inspection, trachea midline, No lymphadenopathy, No midline deformity and No JVD Resp Effort & Inspection: normal respiratory effort and able to speak in complete sentences Auscultation: clear to auscultation bilaterally, no rales, no rhonchi and no wheezes Cardio Rate: regular rate Rhythm: regular rhythm Heart Sounds: no click, no gallops, no murmurs and no rubs Pulses: normal peripheral pulses Skin General: no rashes or lesions noted Neuro General: alert, awake, oriented x3, gait normal, no focal motor deficits and not confused Speech: speech normal Extrem Other: No motor doses. Normal gait. Psych Appearance: disheveled Speech and Movement: agitated, speech clear and restless Mood: irritable mood Affect: labile affect Attitude: belligerent Thought Process: illogical Thought Content: hallucinations, no homicidality and suicidality Judgment: judgment good Course Course Course Narrative: The patient was irritable with his mother and sister upon arrival. He was verbally aggressive with his family. He cursed them and staff frequently. He agreed to head CT, but refused labs. He specifically refused a urine sample. He eventually left Against Medical Advice. His head CT was normal, he did not stay for results. Apparently his moods are up and down, his family is very certain of drug abuse. He denies suicidal ideation tonight. He has apparently made occasional claims with his mom at her home. He is amount burning, he is generally sting his mom's home. He has also made comments about suicide by endoscopy support specialist. He currently does not make the statements. He is oriented. When he walked out Against Medical Advice, I discussed with his mom a need to be sure she protects herself, and consider calling 911 when he is making these claims at home. Orders Ordered: ED Orders 07/17/19 04:14 CT head/brain wo con Stat Complete Blood Count AUTO DIFF Stat Comprehensive Metabolic Panel Stat Ethanol (ETOH) Stat Thyroid Stimulating Hormone Stat Urine Drug Screen, Rapid Stat Discontinued Medications Lorazepam (Ativan) 1 mg PO NOW ONE Stop: 07/17/19 04:52 Last Admin: 07/17/19 04:53 Dose: 1 mg Documented by: HEATHER Vital Signs Vital signs: Vital Signs - 8 hr 07/17/19 04:03 Temperature 98.2 F Pulse Rate 95 H Respiratory Rate 16 Blood Pressure 160/102 H Pulse Oximetry 95 MDM - Psych Imaging Data CT scan - head: Radiologist's impression: No acute process. Discharge Plan Departure Patient Disposition: Left Against Medical Advice Clinical Impression: Left against medical advice, Hallucinations Discharge Date/Time: 07/17/19 05:45 Prescriptions: No Action cephalexin 500 mg capsule 500 mg PO QID Qty: 40 RF: 0 Stand Alone Forms: Against Medical Advice
[2019-07-17 04:03] VITALS: BP 160/102; PULSE 95; RESP 16; TEMP 36.8; O2SAT 95; BMI 22.3
--- NOTE | 2019-07-17 04:14 | DI.CT.S_ITS ---
PROCEDURE: CT HEAD/BRAIN WO CON INDICATIONS: Headaches. Psychosis. TECHNIQUE: Noncontrast 4.5 mm thick angled axial sections acquired from the foramen magnum to the vertex, with coronal and sagittal reformats. For radiation dose reduction, the following was used: automated exposure control, adjustment of mA and/or kV according to patient size. COMPARISON: [facility], CT, CT HEAD/BRAIN WO CON, 04/12/2019, 16:40. FINDINGS: Image quality: Excellent. CSF spaces: Basal cisterns are patent. No extra-axial fluid collections. Ventricles are normal in size and shape. Brain: No midline shift. No intracranial masses or hemorrhage. Yanez-white matter interface is normal. Skull and face: Calvarium and visualized facial bones are intact, without suspicious lesions. Sinuses: Visualized sinuses and mastoids are clear. IMPRESSION: No acute intracranial disease process. Dictated by: Monik Baker MD, PhD on 07/17/2019 at 7:22 Approved by: Monik Baker MD, PhD on 07/17/2019 at 7:23
--- NOTE | 2019-07-17 04:32 | PC.NURSE ---
Pt becoming increasingly paranoid. Refusing lab tests and head CT. Mother and sister at bedside, encouraging pt to receive care. Pt wants to go to [place] to see a cylinder press operator regarding the brain system monitoring. After some discussion, pt agreed to CT scan. Pt ambulated to CT with steady gait, tolerated imaging well.
[2019-07-17] MEDS: LORazepam 0.5 MG TABLET 1 MG PO (04:53)
--- NOTE | 2019-07-17 05:00 | PC.NURSE ---
Pt not consenting to blood draw, paranoid, worried about his medical information being used against him. Pt asked for something for anxiety, verbal order received from Dr Rodriguez for 1 mg ativan PO. Pt still refusing blood draw. He stated he would give urine sample and ambulated to bathroom. Pt returned with clear, colorless, luke-warm liquid in speci cup. Pt's sister states that he has been threatening suicide and the family doesn't know what else to do.
--- NOTE | 2019-07-17 05:36 | PC.NURSE ---
[id number] Pt was arguing with mother and said, fuck this shit and ambulated out of the ED. 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 Dr Rodriguez called to bedside to discuss plan of care and support the family.
--- NOTE | 2019-07-17 11:04 | PC.NURSE ---
1100 patient cuffed, and place in seclusion room. Patient verbalizes consent to lab draw, but attempted to run from seclusion room once door was ajar. Patient returned to room with police assistance.
--- NOTE | 2019-07-17 16:43 | CM.SWNOTE ---
TIGHT ROPE WALKER/Assessment: Received TIGHT ROPE WALKER consult from ED staff indicating that patient brought in by [employer] after family called indicating that patient was suicidal and had noose in his vehicle. Per notes, patient brought into ED yesterday with complaints of mental health issues wanting to have a (lobotomy)? Spoke with Dr. Carrillo whom notes that patient had to be sedated when brought in due to wanting to exit the ED. [employer] available and patient taken to room #13. At that time sedation provided which included ativan, benadryl, and haldol. As of 1599 today patient awake and alert and oriented for assessment. TIGHT ROPE WALKER and CM/RN Corrine met with patient explained role. Patient locked in room#13 for safety. TIGHT ROPE WALKER requested door be unlocked and staff be present which they were. Patient answers questions with yes/no type answers. TIGHT ROPE WALKER asked patient if he was trying to kill himself? He said yes a few days ago? Patient admits to having noose in car and that was his means to end his life. Patient admits to using marijuana however, drug screen positive for meth and morphine. Patient denies feeling suicidal at this time but very difficult to get clear understanding given the recent events of the last 24hrs. Family provided Affidavit for detainment. Patient denies needing anything? Due to Affadavit provided by family and patient's erratic behavior TIGHT ROPE WALKER feels that DCR needs to be dispatched for disposition. Dr. Carrillo in agreement and attestation form signed and faxed to [facility]. Placed call to [facility] to have DCR dispatched. Information received and DCR/Unruly expected to evaluate. ED staff aware. P: Pending. SHY Trujillo TIGHT ROPE WALKER - Motorman/Woman Assessment TIGHT ROPE WALKER - Motorman/Woman Assessment Start: 07/17/19 16:25 Freq: Status: Active Protocol: Document 07/17/19 16:25 KJS (Rec: 07/17/19 16:43 KJS [id number]) TIGHT ROPE WALKER/Motorman/Woman Assessment Time Spent with Patient Start date 07/17/19 Visit Start Time 16:25 Total time Care Management spent on 60 minutes patient visit-in minutes Mental Health Screening Include Onset, Duration, Intensity Presenting Problem Psychiatric Symptoms Precipitating Event(s) Two visits to [facility] Emergency Department with complaints of altered mental status and mental health. Current Behavioral Health Provider(s) Unknown Include Facility, Provider, Ph. # Psych. Hx Mental Health and Chemical None Dependency Family Hx of Behavioral Abuse Unknown Psychiatric Hospitalizations (date(s)/ Unkown location) Support System(s) Karie Jade (sister) or Father Wale Todd [phone]. School/Work Unknown Substance Abuse Screening Include Onset, Duration, Intensity Presenting Problem Patient brought in by [employer] after being called by family concerned that patient was going to harm himself. Precipitating Event(s) Patient has had history of feeling like computers are attacking my brain see notes in H&P on 07-17-19. Current Behavioral Health Provider(s) Undiagnosed mental health? Include Facility, Provider, Ph. # Patient answering questions vaguely with annoyance and agitation. Family Hx of Behavioral Abuse Unknown Rehab Facilities? ((Date(s), Location(s) Unknown ) History of Withdrawal? Seizures? Unknown Legal Concerns Legal Matters - Outstanding Issues Unknown Mental Status Orientation (Person/Place/Time) Alert and oriented x3 Affect flat and annoyed Thought Content - Specify/Describe Patient's thought process Obsessions, Delusions, Hallucinations appears adequate but extremely resistent and lacks respect for authority. Patient clearly does not want to be interviewed at this time. Reports that he wants to go home. Thought Processes (Mqqcjrw-Hlohgtws-Rpwm disorganized and flippant Vpgjdnjc-Vniuahhq-Cqzhztqffg- Boqkfhtduhquxa-Pdowrkg-Iouxmunbfzit- Thought Blocking) Speech (Eqiypf-Zcil-Sbkphan-Rapid-Soft- Normal to slow Loud-Pressured) Motor (Cyywun-Fpaglesma-Ylts-Other) Normal to slow Insight (Present-Partially Present- Unknown Impaired) Judgement (Intact-Impaired) Impaired Impulse Control (Adequate-Impaired) Impaired no control Memory (Asnhejgza-Dvgfnw-Koktcx, Unknown Impaired-Intact) Concentration (Intact-Impaired) Intact Attention (Intact-Impaired) Poor Behavior (Appropriate-Inappropriate) Inappropriate requiring sedation earlier in the day for aggressive behavior Risk Assessment Suicidal Ideation (Plan) Yes: Hang myself with noose Comment Noose found in patient's vehicle Intervention Intervention Dispatch DCR once patient medically cleared for detainment. Family enocuraged to complete affidavit. Patient did not provide TIGHT ROPE WALKER/CM with permission to speak with his family about his immediate care at [facility]
== END 2019-07-17 05:45 | disposition left against medical advice (07) ==
PROVIDERS: Emergency Provider Emergency Medicine
DX: R51 Headache (principal)
CPT/HCPCS: 70450; 99291; 99292

== ENCOUNTER 2019-07-17 10:34 | Emergency (ER) | payer OTHER, MEDICAID, SELFPAY ==
--- NOTE | 2019-07-17 10:50 | ED.GENADULT ---
HPI - General Adult <Carlyle Carrillo DO - Last Filed: 07/18/19 07:58> General Chief complaint: Psychiatric Symptoms Stated complaint: WILBERTO Time Seen by Provider: 07/17/19 10:45 Source: patient and police Mode of arrival: other (Police) Limitations: altered mental status and other (Willingness/ability to answer questions) History of Present Illness HPI narrative: Patient is a 33-year-old male brought in by police after the police was called by the patient's family. Patient was in the emergency department last evening for evaluation of what sounded like hallucinations and also headache. Patient states that he came last evening for a ?head CT ?because of the thoughts that he was having. He did admit that he was having thoughts that they were computers attached to his head. The patient left Against Medical Advice from that visit. Patient arrived by police today. They stated they were called by the family due to concerns for the patient's well being. It was reported by the patient's family that he has been increasingly paranoid over the past several days/week. They state that he has had prior issues with mental health and has been medicating with street drugs because of this. The patient denies taking any prescription medications. Unsure if there were any prior mental health admissions. Patient does admit to having a prior diagnosis of depression but states that he is not currently depressed. Family reports that over the past several days/week he has been making increasing severe comments about killing himself to include shooting himself, also making comments about wanting to go by a gun because he is hearing dogs barking any wants to kill the dogs. He has also made comments about wanting to hang himself. Is reported that last evening a family member found the noose that was tied in the patient's truck. When I confronted the patient about this he states ?I just like to tie knots? shortly after arrival here to the emergency department he attempted to run out of the ER. He had to be tackled by the police and was placed in handcuffs. He was only intermittently cooperative with questioning. Given the reported history of the patient how he was acting in the emergency department I did not feel like he had the capacity to make decisions. Related Data Previous Rx's Medication Instructions Recorded cephalexin 500 mg PO QID #40 cap 06/09/19 Allergies Allergy/AdvReac Type Severity Reaction Status Date / Time No Known Drug Allergies Allergy Verified 04/28/19 18:52 Review of Systems <Carlyle Carrillo DO - Last Filed: 07/18/19 07:58> Review of Systems Narrative: Patient unwilling to answer any review of systems questions Patient History <Carlyle Crarillo DO - Last Filed: 07/18/19 07:58> Medical History Anxiety (Acute) Opiate dependence, continuous (01/12/17) Surgical History (Updated 07/17/19 @ 04:24 by Ziggy Rodriguez MD) No significant past surgical history (Acute) Social History Smoking Status: Current every day smoker alcohol intake frequency: a few times a week Substance Use Type: marijuana Exam <Carlyle Carrillo DO - Last Filed: 07/18/19 07:58> Initial Vital Signs Initial Vital Signs: Vital Signs Temperature 98.9 F 07/17/19 11:48 Pulse Rate 111 H 07/17/19 11:48 Respiratory Rate 18 07/17/19 11:48 Blood Pressure 127/69 07/17/19 11:48 Pulse Oximetry 96 07/17/19 11:48 Const General: No cooperative and disheveled Orientation: alert and awake HENMA Head: normal to inspection and normocephalic Resp Effort & Inspection: normal respiratory effort Cardio Rate: tachycardic Skin Lesions: no lesions Rashes: no rashes Neuro General: alert and awake Cognition: abnormal cognition Gait: normal gait Extrem Other: No gross deformities Psych Appearance: disheveled Speech and Movement: agitated Mood: angry Affect: animated and hostile Attitude: not cooperative and refuses to answer Thought Content: other (Refuses to answer any questions) Judgment: poor <Ziggy Rodriguez MD - Last Filed: 07/17/19 22:40> Initial Vital Signs Initial Vital Signs: Vital Signs Temperature 98.9 F 07/17/19 11:48 Pulse Rate 111 H 07/17/19 11:48 Respiratory Rate 18 07/17/19 11:48 Blood Pressure 127/69 07/17/19 11:48 Pulse Oximetry 96 07/17/19 11:48 Course <Carlyle Carrillo DO - Last Filed: 07/18/19 07:58> Orders Ordered: Discontinued Medications Diphenhydramine HCl (Benadryl) 50 mg IM NOW ONE Stop: 07/17/19 10:39 Last Admin: 07/17/19 11:24 Dose: 50 mg Documented by: VAL Diphenhydramine HCl (Benadryl) 50 mg IM NOW ONE Stop: 07/17/19 11:01 Last Admin: 07/17/19 11:26 Dose: Not Given Documented by: VAL Haloperidol (Haldol) 5 mg IM NOW ONE Stop: 07/17/19 10:39 Last Admin: 07/17/19 11:25 Dose: 5 mg Documented by: VAL Haloperidol (Haldol) 5 mg IM NOW ONE Stop: 07/17/19 11:01 Last Admin: 07/17/19 11:26 Dose: Not Given Documented by: VAL Lorazepam (Ativan) 2 mg IM NOW ONE Stop: 07/17/19 10:40 Last Admin: 07/17/19 11:24 Dose: 2 mg Documented by: VAL Lorazepam (Ativan) 2 mg IM NOW ONE Stop: 07/17/19 11:01 Last Admin: 07/17/19 11:26 Dose: Not Given Documented by: VAL Vital Signs Vital signs: Vital Signs - 8 hr 07/17/19 15:28 07/17/19 19:17 07/17/19 19:20 Pulse Rate 75 80 80 Respiratory Rate 16 16 16 Blood Pressure [Left Arm] 112/70 112/70 Pulse Oximetry 100 94 94 Mental Status Exam Patient Appearance: Disheveled Level of Consciousness: Awake, Combative, Inappropriate and Restless Speech Pattern: Excited Mood Description: Angry and Hostile Ability to Follow Directions: Poor Physical Status Respirations: Normal respiratory rate Circulation: Moves all extremities Assessment of Situation Behavior necessitating restraint: Agitated Restraint Risks: Airway obstruction Restraint risks explained to patient: No Restraint risks explained to family: No <Ziggy Rodriguez MD - Last Filed: 07/17/19 22:40> Course Course Narrative: I initially met this gentleman last night, at a time when he left Against Medical Advice. He returned with police, was violent, and was treated medically. He improved with the medications. Was evaluated CDP. There is a ongoing concern for suicidal behavior. Statements were made by the family. He was found to have a new seen his car. There is an issue with psychosis last night, and again today. See image P ranged admission for inpatient mental health care at [facility]. The patient will be transferred there BLS. Orders Ordered: Discontinued Medications Diphenhydramine HCl (Benadryl) 50 mg IM NOW ONE Stop: 07/17/19 10:39 Last Admin: 07/17/19 11:24 Dose: 50 mg Documented by: VAL Diphenhydramine HCl (Benadryl) 50 mg IM NOW ONE Stop: 07/17/19 11:01 Last Admin: 07/17/19 11:26 Dose: Not Given Documented by: VAL Haloperidol (Haldol) 5 mg IM NOW ONE Stop: 07/17/19 10:39 Last Admin: 07/17/19 11:25 Dose: 5 mg Documented by: VAL Haloperidol (Haldol) 5 mg IM NOW ONE Stop: 07/17/19 11:01 Last Admin: 07/17/19 11:26 Dose: Not Given Documented by: VAL Lorazepam (Ativan) 2 mg IM NOW ONE Stop: 07/17/19 10:40 Last Admin: 07/17/19 11:24 Dose: 2 mg Documented by: VAL Lorazepam (Ativan) 2 mg IM NOW ONE Stop: 07/17/19 11:01 Last Admin: 07/17/19 11:26 Dose: Not Given Documented by: VAL Vital Signs Vital signs: Vital Signs - 8 hr 07/17/19 15:28 07/17/19 19:17 07/17/19 19:20 Pulse Rate 75 80 80 Respiratory Rate 16 16 16 Blood Pressure [Left Arm] 112/70 112/70 Pulse Oximetry 100 94 94 Medical Decision Making <Carlyle Carrillo DO - Last Filed: 07/18/19 07:58> Medical Records Medical records reviewed: Yes I reviewed the patient's medical records. Lab Data Lab results reviewed: Yes I reviewed the patient's lab results. Result diagrams: 07/17/19 11:45 07/17/19 11:45 Labs: Lab Results 11/08/2307/17/19 07/17/19 Range/Units 11:45 11:45 11:45 WBC 10.2 (4.5-11.0) X10^3/uL RBC 4.65 (4.5-5.9) X10^6/uL Hgb 14.4 (13.5-17.5) g/dL Hct 41.8 (41-53) % MCV 90.0 (80-100) fL MCH 31.0 (26-34) PG MCHC 34.4 (30-36) % RDW 13.7 (11.6-14.8) % Plt Count 316 (150-400) X10^3/uL Neut % (Auto) 68.2 (50-75) % Lymph % (Auto) 21.1 L (25-40) % [place] % (Auto) 9.3 (3-14) % Eos % (Auto) 0.5 L (2-4) % Baso % (Auto) 0.9 (0-2) % Neut # (Auto) 7000 (6530-8080) /uL Lymph # (Auto) 2200 (4617-2714) /uL [place] # (Auto) 900 (0-900) /uL Eos # (Auto) 100 (0-450) /uL Baso # (Auto) 100 (0-100) /uL Sodium 141 (137-145) mmol/L Potassium 3.9 (3.4-5.1) mmol/L Chloride 105 (98-107) mmol/L Carbon Dioxide 26 (22-32) mmol/L BUN 14 (9-20) mg/dL Creatinine 0.70 (0.66-1.25) mg/dL Estimated GFR > 60.0 (>60) mL/min BUN/Creatinine Ratio 20.0 (6-22) Glucose 147 H (70-100) mg/dL Calcium 9.2 (8.4-10.2) mg/dL Total Bilirubin 0.6 (0.2-1.3) mg/dL AST 28 (17-59) IU/L ALT 23 (<50) IU/L Alkaline Phosphatase 60 (38-126) U/L Total Protein 7.1 (6.3-8.2) g/dL Albumin 4.4 (3.5-5.0) g/dL Globulin 2.7 (1.7-4.1) g/dL Albumin/Globulin Ratio 1.6 (1.0-2.8) Lipase 36 (23-300) U/L TSH 0.46 L (0.47-4.68) uIU/mL Urine Color Urine Appearance Urine pH (4.5-8.0) Ur Specific [place] (1.000-1.035) Urine Protein (Negative) Urine Glucose (UA) (Negative) g/dL Urine Ketones (NEGATIVE) Urine Occult Blood (Negative) Urine Nitrate (Negative) Urine Bilirubin (NEGATIVE) Urine Urobilinogen (0.2) E.U./dL Ur Leukocyte Esterase (NEGATIVE) Urine RBC (0-5/HPF) Urine WBC (0-5/HPF) Ur Squamous Epith Cells (0-5/HPF) Calcium Oxalate Crystal Urine Bacteria (None) Urine Mucus (Negative) Urine Sperm Ur Culture Indicated? Salicylates < 1.0 (<20) mg/dL U Morph 300 ng/mL cutoff (Negative) Ur Oxycodone Screen (Negative) Urine Methadone Screen (Negative) Acetaminophen < 10 L (10-30) ug/mL Ur Barbiturates Screen (Negative) U Tricyclic Antidepress (Negative) Ur Phencyclidine Scrn (Negative) Ur Amphetamines Screen (Negative) U Methamphetamines Scrn (Negative) Ur MDMA Scrn (Ecstasy) (Negative) U Benzodiazepines Scrn (Negative) Urine Cocaine Screen (Negative) U Marijuana (THC) Screen (Negative) Ethyl Alcohol < 10 ( - 10) mg/dL 07/17/19 07/17/19 Range/Units 15:25 15:25 WBC (4.5-11.0) X10^3/uL RBC (4.5-5.9) X10^6/uL Hgb (13.5-17.5) g/dL Hct (41-53) % MCV (80-100) fL MCH (26-34) PG MCHC (30-36) % RDW (11.6-14.8) % Plt Count (150-400) X10^3/uL Neut % (Auto) (50-75) % Lymph % (Auto) (25-40) % [place] % (Auto) (3-14) % Eos % (Auto) (2-4) % Baso % (Auto) (0-2) % Neut # (Auto) (3472-1398) /uL Lymph # (Auto) (7829-1962) /uL [place] # (Auto) (0-900) /uL Eos # (Auto) (0-450) /uL Baso # (Auto) (0-100) /uL Sodium (137-145) mmol/L Potassium (3.4-5.1) mmol/L Chloride (98-107) mmol/L Carbon Dioxide (22-32) mmol/L BUN (9-20) mg/dL Creatinine (0.66-1.25) mg/dL Estimated GFR (>60) mL/min BUN/Creatinine Ratio (6-22) Glucose (70-100) mg/dL Calcium (8.4-10.2) mg/dL Total Bilirubin (0.2-1.3) mg/dL AST (17-59) IU/L ALT (<50) IU/L Alkaline Phosphatase (38-126) U/L Total Protein (6.3-8.2) g/dL Albumin (3.5-5.0) g/dL Globulin (1.7-4.1) g/dL Albumin/Globulin Ratio (1.0-2.8) Lipase (23-300) U/L TSH (0.47-4.68) uIU/mL Urine Color Yellow Urine Appearance Clear Urine pH 6.0 (4.5-8.0) Ur Specific [place] 1.020 (1.000-1.035) Urine Protein 1+ H (Negative) Urine Glucose (UA) Negative (Negative) g/dL Urine Ketones Trace H (NEGATIVE) Urine Occult Blood Negative (Negative) Urine Nitrate Negative (Negative) Urine Bilirubin Negative (NEGATIVE) Urine Urobilinogen 0.2 (0.2) E.U./dL Ur Leukocyte Esterase Negative (NEGATIVE) Urine RBC 0-1/hpf (0-5/HPF) Urine WBC 0-1/hpf (0-5/HPF) Ur Squamous Epith Cells 0-1 /hpf (0-5/HPF) Calcium Oxalate Crystal Occasional H Urine Bacteria None seen (None) Urine Mucus 1+ H (Negative) Urine Sperm Present Ur Culture Indicated? Cult not indicated Salicylates (<20) mg/dL U Morph 300 ng/mL cutoff Positive H (Negative) Ur Oxycodone Screen Negative (Negative) Urine Methadone Screen Negative (Negative) Acetaminophen (10-30) ug/mL Ur Barbiturates Screen Negative (Negative) U Tricyclic Antidepress Negative (Negative) Ur Phencyclidine Scrn Negative (Negative) Ur Amphetamines Screen Positive H (Negative) U Methamphetamines Scrn Positive H (Negative) Ur MDMA Scrn (Ecstasy) Negative (Negative) U Benzodiazepines Scrn Negative (Negative) Urine Cocaine Screen Negative (Negative) U Marijuana (THC) Screen Positive H (Negative) Ethyl Alcohol ( - 10) mg/dL MDM Narrative Medical decision making narrative: Patient was only intermittently cooperative. He initially tried to run out of the emergency department had to be tackled by 2 police officers. He was placed in handcuffs. When I confronted the patient about the events that brought him to the emergency department last evening and about the thoughts of computers attached to his head he made comments about ?my girlfriend's kid goes to [facility] and they can do things like that ?when I confronted him about having the noose in his car he stated ?I like to tie knots? he was not willing to answer any other questions about SI or HI. Initially he was cooperative with drawing blood but then refused to have this done. I do feel that the patient does not have that capacity to make decisions. I do feel that we do need to medically clear him so that he can be evaluated. He was given Benadryl Haldol and Ativan and blood was drawn. He tolerated this well. His UDS is positive for amphetamines and morphine and THC. This could be some other cause of his symptoms today however again secondary to the reports provided by the family does sound like he has had underlying mental health issues in the past and has been self medicating with these medications. The patient has been in seclusion since arrival to the emergency department. Case management did try to evaluate the patient however the patient refused to answer any questions. He continues to not want to answer any questions for me. DCR was dispatched. I do feel that the patient needs involuntarily admitted to psychiatric facility given the information provided by the family and how the patient presented today and last evening. DCR here to evaluate. Care turned over to Dr. Rodriguez for disposition. <Ziggy Rodriguez MD - Last Filed: 07/17/19 22:40> Lab Data Labs: Lab Results 1107/17/19 07/17/19 Range/Units 11:45 11:45 11:45 WBC 10.2 (4.5-11.0) X10^3/uL RBC 4.65 (4.5-5.9) X10^6/uL Hgb 14.4 (13.5-17.5) g/dL Hct 41.8 (41-53) % MCV 90.0 (80-100) fL MCH 31.0 (26-34) PG MCHC 34.4 (30-36) % RDW 13.7 (11.6-14.8) % Plt Count 316 (150-400) X10^3/uL Neut % (Auto) 68.2 (50-75) % Lymph % (Auto) 21.1 L (25-40) % [place] % (Auto) 9.3 (3-14) % Eos % (Auto) 0.5 L (2-4) % Baso % (Auto) 0.9 (0-2) % Neut # (Auto) 7000 (0379-4167) /uL Lymph # (Auto) 2200 (6639-7052) /uL [place] # (Auto) 900 (0-900) /uL Eos # (Auto) 100 (0-450) /uL Baso # (Auto) 100 (0-100) /uL Sodium 141 (137-145) mmol/L Potassium 3.9 (3.4-5.1) mmol/L Chloride 105 (98-107) mmol/L Carbon Dioxide 26 (22-32) mmol/L BUN 14 (9-20) mg/dL Creatinine 0.70 (0.66-1.25) mg/dL Estimated GFR > 60.0 (>60) mL/min BUN/Creatinine Ratio 20.0 (6-22) Glucose 147 H (70-100) mg/dL Calcium 9.2 (8.4-10.2) mg/dL Total Bilirubin 0.6 (0.2-1.3) mg/dL AST 28 (17-59) IU/L ALT 23 (<50) IU/L Alkaline Phosphatase 60 (38-126) U/L Total Protein 7.1 (6.3-8.2) g/dL Albumin 4.4 (3.5-5.0) g/dL Globulin 2.7 (1.7-4.1) g/dL Albumin/Globulin Ratio 1.6 (1.0-2.8) Lipase 36 (23-300) U/L TSH 0.46 L (0.47-4.68) uIU/mL Urine Color Urine Appearance Urine pH (4.5-8.0) Ur Specific [place] (1.000-1.035) Urine Protein (Negative) Urine Glucose (UA) (Negative) g/dL Urine Ketones (NEGATIVE) Urine Occult Blood (Negative) Urine Nitrate (Negative) Urine Bilirubin (NEGATIVE) Urine Urobilinogen (0.2) E.U./dL Ur Leukocyte Esterase (NEGATIVE) Urine RBC (0-5/HPF) Urine WBC (0-5/HPF) Ur Squamous Epith Cells (0-5/HPF) Calcium Oxalate Crystal Urine Bacteria (None) Urine Mucus (Negative) Urine Sperm Ur Culture Indicated? Salicylates < 1.0 (<20) mg/dL U Morph 300 ng/mL cutoff (Negative) Ur Oxycodone Screen (Negative) Urine Methadone Screen (Negative) Acetaminophen < 10 L (10-30) ug/mL Ur Barbiturates Screen (Negative) U Tricyclic Antidepress (Negative) Ur Phencyclidine Scrn (Negative) Ur Amphetamines Screen (Negative) U Methamphetamines Scrn (Negative) Ur MDMA Scrn (Ecstasy) (Negative) U Benzodiazepines Scrn (Negative) Urine Cocaine Screen (Negative) U Marijuana (THC) Screen (Negative) Ethyl Alcohol < 10 ( - 10) mg/dL 07/17/19 07/17/19 Range/Units 15:25 15:25 WBC (4.5-11.0) X10^3/uL RBC (4.5-5.9) X10^6/uL Hgb (13.5-17.5) g/dL Hct (41-53) % MCV (80-100) fL MCH (26-34) PG MCHC (30-36) % RDW (11.6-14.8) % Plt Count (150-400) X10^3/uL Neut % (Auto) (50-75) % Lymph % (Auto) (25-40) % [place] % (Auto) (3-14) % Eos % (Auto) (2-4) % Baso % (Auto) (0-2) % Neut # (Auto) (7807-9174) /uL Lymph # (Auto) (6634-2414) /uL [place] # (Auto) (0-900) /uL Eos # (Auto) (0-450) /uL Baso # (Auto) (0-100) /uL Sodium (137-145) mmol/L Potassium (3.4-5.1) mmol/L Chloride (98-107) mmol/L Carbon Dioxide (22-32) mmol/L BUN (9-20) mg/dL Creatinine (0.66-1.25) mg/dL Estimated GFR (>60) mL/min BUN/Creatinine Ratio (6-22) Glucose (70-100) mg/dL Calcium (8.4-10.2) mg/dL Total Bilirubin (0.2-1.3) mg/dL AST (17-59) IU/L ALT (<50) IU/L Alkaline Phosphatase (38-126) U/L Total Protein (6.3-8.2) g/dL Albumin (3.5-5.0) g/dL Globulin (1.7-4.1) g/dL Albumin/Globulin Ratio (1.0-2.8) Lipase (23-300) U/L TSH (0.47-4.68) uIU/mL Urine Color Yellow Urine Appearance Clear Urine pH 6.0 (4.5-8.0) Ur Specific [place] 1.020 (1.000-1.035) Urine Protein 1+ H (Negative) Urine Glucose (UA) Negative (Negative) g/dL Urine Ketones Trace H (NEGATIVE) Urine Occult Blood Negative (Negative) Urine Nitrate Negative (Negative) Urine Bilirubin Negative (NEGATIVE) Urine Urobilinogen 0.2 (0.2) E.U./dL Ur Leukocyte Esterase Negative (NEGATIVE) Urine RBC 0-1/hpf (0-5/HPF) Urine WBC 0-1/hpf (0-5/HPF) Ur Squamous Epith Cells 0-1 /hpf (0-5/HPF) Calcium Oxalate Crystal Occasional H Urine Bacteria None seen (None) Urine Mucus 1+ H (Negative) Urine Sperm Present Ur Culture Indicated? Cult not indicated Salicylates (<20) mg/dL U Morph 300 ng/mL cutoff Positive H (Negative) Ur Oxycodone Screen Negative (Negative) Urine Methadone Screen Negative (Negative) Acetaminophen (10-30) ug/mL Ur Barbiturates Screen Negative (Negative) U Tricyclic Antidepress Negative (Negative) Ur Phencyclidine Scrn Negative (Negative) Ur Amphetamines Screen Positive H (Negative) U Methamphetamines Scrn Positive H (Negative) Ur MDMA Scrn (Ecstasy) Negative (Negative) U Benzodiazepines Scrn Negative (Negative) Urine Cocaine Screen Negative (Negative) U Marijuana (THC) Screen Positive H (Negative) Ethyl Alcohol ( - 10) mg/dL MDM Narrative Medical decision making narrative: 22:20. 07/17/2019. I assumed care from Dr. Jay lew at change of shift. [facility] evaluation had just been initiated. I initially met this gentleman last night, at a time when he left Against Medical Advice. He returned with police, was violent, and was treated medically. He improved with the medications. He was evaluated CDP. There is a ongoing concern for suicidal behavior. Statements were made by the family. He was found to have a noose in his car. There is an issue with psychosis last night, and again today. [facility] arranged admission for inpatient mental health care at [facility]. The patient will be transferred there [facility]. Briseida Griffin MD Discharge Plan Departure Patient Disposition: Xfer Psychiatric Hosp Clinical Impression: Acute psychosis, Multiple substance abuse Discharge Date/Time: 07/17/19 22:48
--- NOTE | 2019-07-17 11:10 | PC.NURSE ---
Addendum entered by Alethea Gordon R.N. 07/17/19 11:29: Patient sitting with eyes closed against wall. Medications administered with police assistance. Patients clothes changed. Vital signs taken, blood drawn by lab. Patient calm during lab draw after discussion involving care. Original Note: 1100 patient cuffed and placed in seclusion room after becoming combative, verbalized consent to lab draw when speaking to physician but attempted to leave again when seclusion door was ajar. Patient placed back in seclusion room with police assistance.
[2019-07-17] MEDS: LORazepam 2 MG/ML INJ IM (11:24)
[2019-07-17] MEDS: diphenhydrAMINE 50 MG/ML VIAL IM (11:24)
[2019-07-17] MEDS: HALOPERIDOL 5 MG/ML VIAL IM (11:25)
[2019-07-17 11:48] VITALS: BP 127/69; PULSE 111; RESP 18; TEMP 37.2; O2SAT 96
[2019-07-17 11:54] LABS: Add Manual Diff / Slide Review NO; Basophils Absolute Auto 100 /uL (0-100); Basophils Percent Auto 0.9 % (0-2); Eosinophils Absolute Auto 100 /uL (0-450); Eosinophils Percent Auto 0.5 % (2-4); Hematocrit 41.8 % (41-53); Hemoglobin 14.4 g/dL (13.5-17.5); Lymphocytes Absolute Auto 2200 /uL (1100-4500); Lymphocytes Percent Auto 21.1 % (25-40); Mean Corpuscular HGB Conc 34.4 % (30-36); Monocytes Absolute Auto 900 /uL (0-900); Monocytes Percent Auto 9.3 % (3-14); Neutrophils Absolute Auto 7000 /uL (1500-7000); Neutrophils Percent Auto 68.2 % (50-75); Platelet Count 316 X10^3/uL (150-400); Red Blood Cell Count 4.65 X10^6/uL (4.5-5.9); Red Cell Distribution Width 13.7 % (11.6-14.8); White Blood Cell Count 10.2 X10^3/uL (4.5-11.0)
[2019-07-17 12:11] LABS: Acetaminophen < 10 ug/mL (10-30); Alanine Aminotransferase 23 IU/L (<50); Albumin 4.4 g/dL (3.5-5.0); Albumin Globulin Ratio 1.6 (1.0-2.8); Alkaline Phosphatase 60 U/L (38-126); Aspartate Aminotransferase 28 IU/L (17-59); Bilirubin Total 0.6 mg/dL (0.2-1.3); Blood Urea Nitrogen 14 mg/dL (9-20); Calcium 9.2 mg/dL (8.4-10.2); Carbon Dioxide 26 mmol/L (22-32); Chloride 105 mmol/L (98-107); Estimated Glomerular Filt Rate > 60.0 mL/min (>60); Ethanol (ETOH) < 10 mg/dL; Globulin 2.7 g/dL (1.7-4.1); Glucose 147 mg/dL (70-100); HEMOLYSIS < 15 (0-50); Lipase 36 U/L (23-300); Potassium 3.9 mmol/L (3.4-5.1); Salicylate < 1.0 mg/dL (<20); Sodium 141 mmol/L (137-145); Total Protein 7.1 g/dL (6.3-8.2)
[2019-07-17 12:52] LABS: Thyroid Stimulating Hormone 0.46 uIU/mL (0.47-4.68)
--- NOTE | 2019-07-17 14:05 | PC.NURSE ---
pt woke and turned over to his side, opened the door and offered water or gingerale. pt said no thank you.
--- NOTE | 2019-07-17 14:07 | PC.NURSE ---
offered the pt gingerale or water, he said no, offered him a restroom break, he said no. btsari RN
--- NOTE | 2019-07-17 15:26 | PC.NURSE ---
pt up to void, rm 13 bathroom door unlocked, pt urinated, pt back to mattress, bathroom door locked. offered pt tea or hot chocolate, pt accepted hot chocolate. pt remains sitting up. danica rn
[2019-07-17 15:28] VITALS: PULSE 75; RESP 16; O2SAT 100
[2019-07-17 15:29] LABS: Bacteria Urine None Seen
[2019-07-17 15:32] LABS: Appearance Urine UA CLEAR; Bilirubin Urine UA NEGATIVE (NEGATIVE); Color Urine UA YELLOW; Glucose Urine UA NEGATIVE (Negative); Ketones Urine UA TRACE (NEGATIVE); Leukocyte Esterase Urine UA NEGATIVE (NEGATIVE); Nitrite Urine UA NEGATIVE (Negative); Occult Blood Urine UA NEGATIVE (Negative); Protein Urine UA 1+ (Negative); Urobilinogen Urine UA 0.2 E.U./dL (0.2)
[2019-07-17 15:39] LABS: UR Morphine/Opiate cutoff 300 Positive (Negative); Ur Creatinine Normal (Normal); Ur Specific Gravity Normal (Normal); Urine Amphetamines Positive (Negative); Urine Barbiturates Negative (Negative); Urine Benzodiazepines Negative (Negative); Urine Cocaine Negative (Negative); Urine MDMA Negative (Negative); Urine Methadone Negative (Negative); Urine Methamphetamines Positive (Negative); Urine Oxycodone Negative (Negative); Urine Phencyclidine Negative (Negative); Urine Tetrahydrocannabinol Positive (Negative); Urine Tricyclic Antidepressant Negative (Negative); Urine pH Normal (Normal)
[2019-07-17 15:44] LABS: Calcium Oxalate Crystals Urine Occasional; Mucus Urine 1+ (Negative); RBC Urine 0-1/HPF (0-5/HPF); Squamous Epithelial Cell Urine 0-1 /HPF (0-5/HPF); WBC Urine 0-1/HPF (0-5/HPF)
[2019-07-17 15:45] LABS: Culture Indicated Urine Cult Not Indicated; Sperm Urine PRESENT
--- NOTE | 2019-07-17 15:54 | PC.NURSE ---
pt sister Karie is here in the waiting room writing her affidavit. asked pt if he would like to see her. he replied no, i'll see her when i'm done
--- NOTE | 2019-07-17 16:20 | PC.NURSE ---
SHY alex here, pt isn't speaking.
--- NOTE | 2019-07-17 18:50 | CM.SWNOTE ---
CM/RN note: patients sister Ida called the ED and CM/RN spoke with her. She explained that her brothers truck was parked at her fathers work site and needed to be moved so they can pour concrete tomorrow. CM/RN told patients sister that without the patients permission the ED staff would not be able to give any of the patients personal belongings including his keys to the patients family. Patients sister stated understanding and CM/RN asked the patient if he wanted to give his keys to his family or a friend so they can move his truck. patient said he didn't want to give them anything. Cm/RN relayed the messaged to patients sister. Patients sister stated understanding. Patients mother and father in-law stopped by to see how patient was doing and what the plan of care would be for the patient. CM/RN explained that the patent asked [facility] staff not to talk to his family about him. The family stated understanding and gave CM/RN two written statements about the patients recent behaviors to be reviewed. ATUL/RN gave the family statements to the DCR when he arrived at the ED. Corrine Haynes RN.
[2019-07-17 19:17] VITALS: BP 112/70; PULSE 80; RESP 16; O2SAT 94
[2019-07-17 19:20] VITALS: BP 112/70; PULSE 80; RESP 16; O2SAT 94
--- NOTE | 2019-07-17 19:32 | PC.NURSE ---
pt is agitated when addressed but isn't restless. btmaur, rn
--- NOTE | 2019-07-17 20:40 | PC.NURSE ---
Note for 191-RN and I checked on the pt. RN asked if pt wanted anything and the pt replied very angrily ya, can you get me some crack? Pt was aggitated when RN and I checked on the pt. The pt did say he wanted some monty crackers and cheese. RN got the pt monty crackers and cheese and some gingerale. Pt then asked where his f shoes and socks were. Pt also asked when he was going to get out of this [facility] place. RN explained to him that someone needed to come and see him first before he was discharged. Pt wasn't happy with that answer but continued to sit on the pad he was laying on. RN and I left the room so pt didn't become more aggitated.
--- NOTE | 2019-07-17 21:39 | PC.NURSE ---
report called to dada Perez at [facility]. [phone].
--- NOTE | 2019-07-17 21:45 | PC.NURSE ---
[facility] saw pt to let him know that he was going to be transmitted to [facility]. Marc-[facility] handed the pt a copy of his paperwork. Security, one of the other aides and I were standing by outside the door for Marc's safety. Pt seemed to be ok with everything. Pt wasn't aggitated at the moment.
--- NOTE | 2019-07-17 21:53 | PC.NURSE ---
pt has specific plan, pt has a noose in truck that family found. pt sister and mother are providing information that the pt has said referring to auditory hallucinations.
--- NOTE | 2019-07-17 22:48 | PC.NURSE ---
[facility] came and got pt. Pt was cooperative. Got on the stretcher with no problem and let the pulling unit floorhand restrain him to the stretcher. Pts belongings were handed to the pulling unit floorhand.
--- NOTE | 2019-07-24 16:59 | PC.NURSE ---
late entry. pt restraints were released for him to leave with ems team around 2134.
== END 2019-07-17 22:48 ==
PROVIDERS: Emergency Medicine; Emergency Provider Emergency Medicine
DX: F23 Brief psychotic disorder (principal); F19.10 Other psychoactive substance abuse, uncomplicated; R51 Headache
CPT/HCPCS: 36415; 70450; 80053; 80305; 80320; 80329; 81001; 83690; 84443; 85025; 96372; 99282; 99283; 99285; 99291; 99292; G0480; J1200; J1630; J2060

== ENCOUNTER → 2020-06-22 11:25 | Outpatient (CLI) | payer OTHER, MEDICAID, SELFPAY ==
[2020-06-23 14:31] LABS: COVID19 Sendout Not Detected (Not Detect)
== END ==
PROVIDERS: Visit Provider Physician Assistant
DX: Z11.59 Encounter for screening for other viral diseases (principal)
CPT/HCPCS: 87635

== ENCOUNTER 2020-12-15 17:12 | Emergency (ER) | payer OTHER, MEDICAID, SELFPAY ==
[2020-12-15 17:37] VITALS: BP 146/90; PULSE 88; RESP 14; TEMP 36.6; O2SAT 99; BMI 25.0
== END 2020-12-15 19:17 | disposition left against medical advice (07) ==

== ENCOUNTER 2020-12-15 20:22 | Emergency (ER) | payer OTHER, MEDICAID, SELFPAY ==
[2020-12-15 20:45] VITALS: BP 161/84; PULSE 91; RESP 17; TEMP 37.1; O2SAT 99; BMI 24.4
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
--- NOTE | 2020-12-15 22:28 | DI.RAD.S_ITS ---
PROCEDURE: XR ABDOMEN 1V INDICATIONS: Abdominal pain TECHNIQUE: One view of the abdomen acquired. COMPARISON: None. FINDINGS: Surgical changes and devices: None. Bowel: Bowel gas pattern is normal. Soft tissues: No suspicious abdominal calcifications. Visualized solid organ contours appear normal in size. Bones: No suspicious bony lesions. IMPRESSION: No acute disease process. Dictated by: Monik Baker MD, PhD on 12/16/2020 at 10:34 Approved by: Monik Baker MD, PhD on 12/16/2020 at 10:34
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
[2020-12-16 00:31] LABS: HIV 1 & 2 Ab/Ag 4th Gen Combo NEGATIVE (NEGATIVE)
== END 2020-12-15 23:05 | disposition left against medical advice (07) ==
PROVIDERS: Emergency Provider Emergency Medicine; PCP Physician Assistant
DX: Z20.2 Contact with and (suspected) exposure to infections with a predominantly sexual mode of transmission (principal); R10.9 Unspecified abdominal pain
CPT/HCPCS: 36415; 74018; 87389; 99281; 99283

== ENCOUNTER 2021-06-07 02:07 | Emergency (ER) | payer OTHER, MEDICAID, SELFPAY ==
[2021-06-07 02:14] VITALS: BP 145/82; PULSE 78; RESP 19; TEMP 36.1; O2SAT 98; BMI 23.0
--- NOTE | 2021-06-07 02:16 | ED_ITS ---
HPI - Chest Pain General Chief Complaint: Chest Pain Stated Complaint: pain in lower lungs Time Seen by Provider: 06/07/21 02:09 Source: patient Mode of arrival: Ambulatory Limitations: no limitations History of Present Illness HPI narrative: Patient is a 35-year-old male here for evaluation of sharp right- sided chest pain. He states that several hours ago while smoking a cigarette he had a onset of sharp right-sided pinpoint abdominal discomfort. He states that the entire event lasted approximately 10 hours but it did come and go during that time. He is currently asymptomatic. He does not remember if he got worse with touching or movement at the time. Afebrile. He states that he is vaccinated against COVID-19. He would like a COVID test. Related Data Allergies Allergy/AdvReac Type Severity Reaction Status Date / Time No Known Drug Allergies Allergy Verified 06/22/20 11:08 Review of Systems Cardiovascular Cardiovascular: Reports as per HPI and Reports system reviewed and no additional complaints, except as documented Respiratory Respiratory: Reports as per HPI and Reports system reviewed and no additional complaints, except as documented Integumentary/Breasts Skin/Breast: Reports system reviewed and no additional complaints, except as documented Patient History Medical History Anxiety Medication refill Opiate dependence, continuous (01/12/17) Rash of genitalia Surgical History (Updated 07/17/19 @ 04:24 by Ziggy Rodriguez MD) No significant past surgical history Social History Smoking Status: Current every day smoker Smoking Status: Current every day smoker alcohol intake frequency: a few times a week Substance Use Type: marijuana Exam Initial Vital Signs Initial Vital Signs: Vital Signs Temperature 97 F L 06/07/21 02:14 Pulse Rate 78 06/07/21 02:14 Respiratory Rate 19 06/07/21 02:14 Blood Pressure 145/82 H 06/07/21 02:14 Pulse Oximetry 98 06/07/21 02:14 Chest Chest: No crepitus and No tenderness Resp Effort & Inspection: normal respiratory effort Auscultation: clear to auscultation bilaterally Cardio Rate: regular rate Rhythm: regular rhythm Skin General: no rashes or lesions noted Neuro General: patient alert and patient awake Course Orders Ordered: ED Orders 06/07/21 02:17 COVID19 -Nasal swab/Pre-Proc Stat Vital Signs Vital signs: Vital Signs - 8 hr 06/07/21 02:14 Temperature 97 F L Pulse Rate 78 Respiratory Rate 19 Blood Pressure 145/82 H Pulse Oximetry 98 MDM - Chest Pain Lab Data Attestation: I reviewed the patient's lab results. Labs: Lab Results 06/07/21 Range/Units 02:15 SARS-CoV-2 (PCR) Negative (Negative) MDM Narrative Medical decision making narrative: No respiratory distress, clear lung exam no rashes with the area. It was negative. No indication for radiologic studies. No indication for antibiotics. Patient was given return precautions. Expressed understanding and agreement. Discharge Plan Departure Patient Disposition: Home Clinical Impression: Right-sided chest wall pain Activity Restrictions/Additional Instructions: Your exam here in the emergency department is very reassuring. I have low suspicion that you have pneumonia. You COVID test was negative. Contact your primary doctor for follow-up. Return to the emergency department for any new or worsening symptoms Referrals: Vivian Christian PA-C [Primary Care Provider] -
[2021-06-07 02:36] LABS: COVID19 -Nasal RAPID Negative (Negative)
== END 2021-06-07 02:39 | disposition home or self-care (01) ==
PROVIDERS: Emergency Provider Emergency Medicine; PCP Physician Assistant
DX: R07.89 Other chest pain (principal); Z20.822 Contact with and (suspected) exposure to COVID-19
CPT/HCPCS: 87635; 99281; 99282; C9803

== ENCOUNTER 2021-07-08 07:15 | Emergency (ER) | payer OTHER, MEDICAID, SELFPAY ==
[2021-07-08 07:29] VITALS: BP 146/83; PULSE 121; RESP 20; TEMP 36.7; O2SAT 99; BMI 21.7
--- NOTE | 2021-07-08 07:34 | PC.NURSE ---
Pt's backpack held in locker with ID on it. Pt's pockets searched, remains in personal clothing.
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
--- NOTE | 2021-07-08 07:40 | PC.NURSE ---
Per discussion with ED provider, pt is not restricted form DC based on his presentation and complaints today. He is not ruled a danger to himself or others, and is not motivated to stay for workup and SECRETARY ADMINISTRATIVE ASSISTANT consult. He repeatedly states, I will come back around noon to see the delinquency prevention social worker. Explained that it is not an appt, and if he wants to come back he can, but if he leaves now he is checking out of the ED. Pt understands. Backpack returned to him. Ambulates to exit independently with even, steady gait.
== END 2021-07-08 07:45 | disposition home or self-care (01) ==
PROVIDERS: Emergency Provider Emergency Medicine; PCP Physician Assistant
DX: F43.20 Adjustment disorder, unspecified (principal)
CPT/HCPCS: 99282; 99283

== ENCOUNTER 2021-07-11 09:54 | Emergency (ER) | payer OTHER, MEDICAID, SELFPAY ==
--- NOTE | 2021-07-11 09:55 | DI.RAD.S_ITS ---
PROCEDURE: XR CHEST 2V INDICATIONS: chest pain TECHNIQUE: 2 views of the chest were acquired. COMPARISON: [facility], , CHEST 1 VIEW, 05/30/2007, 18:04. FINDINGS: Surgical changes and devices: None. Lungs and pleura: Lungs are clear. No pleural effusions or pneumothorax. Mediastinum: Mediastinal contours are normal. Heart size is normal. Bones and chest wall: No suspicious bony abnormalities. Soft tissues appear unremarkable. IMPRESSION: The cause of chest pain is not identified. No displaced rib fracture or pneumothorax can be seen. Dictated by: Cruz Wright M.D. on 07/11/2021 at 9:26 Approved by: Cruz Wright M.D. on 07/11/2021 at 9:27
--- NOTE | 2021-07-11 09:55 | ED.CHESTPAIN ---
HPI - Chest Pain General Chief Complaint: Recheck/Abnormal Lab/Rx Stated Complaint: Fit for Usp Time Seen by Provider: 07/11/21 09:55 History of Present Illness HPI narrative: Patient is a 35-year-old male who presents by police for fit for long term. He has a history of methamphetamine abuse. He was seen and evaluated here on 07/08/2021 for mental health evaluation for some delusions but did not meet involuntary criteria he did not want wait for social work and left. Today he arrives by police for domestic issues. Patient says that he in his family have been having the same issues for a number of years. He says he is being arrested for assault. Do seems to be having some hallucinations possible voices but denies suicidal ideation or homicidal ideations. He is a bit tearful. According to police they state that he was complaining of some chest discomfort. He is not complaining of chest discomfort today. He is not able to elaborate on this at this time. Denies any recent drug use or alcohol use. He is handcuffed and cooperative. Related Data Allergies Allergy/AdvReac Type Severity Reaction Status Date / Time No Known Drug Allergies Allergy Verified 07/11/21 10:11 Review of Systems Review of Systems Narrative: GENERAL: Denies chills,fever HEENT: Denies throat pain RESPIRATORY: Denies dyspnea, cough, wheezing CARDIOVASCULAR: Denies chest pain, palpitations GASTROINTESTINAL: Denies nausea, vomiting MUSCULOSKELETAL: Denies extremity pain, injury SKIN: No rash, no laceration, no pruritus NEUROLOGIC: Denies weakness, dizziness, headache, numbness 8 point review of systems is negative except for those stated above and HPI Psychiatric Psychiatric: Reports as per HPI, Denies homicidal ideation and Denies suicidal ideation Patient History Medical History Anxiety Medication refill Opiate dependence, continuous (01/12/17) Rash of genitalia Surgical History (Updated 07/17/19 @ 04:24 by Ziggy Rodriguez MD) No significant past surgical history Social History Smoking Status: Current every day smoker Smoking Status: Current every day smoker alcohol intake frequency: a few times a week Substance Use Type: marijuana Exam Initial Vital Signs Initial Vital Signs: Vital Signs Temperature 97.7 F 07/11/21 10:08 Pulse Rate 117 H 07/11/21 10:08 Respiratory Rate 24 07/11/21 10:08 Blood Pressure 152/85 H 07/11/21 10:08 Pulse Oximetry 96 07/11/21 10:08 GENERAL: Alert well-appearing 35-year-old male currently handcuffed HEENT: Head atraumatic,EOMI, pupils reactive, face symmetric, moist mucous membranes CARDIOVASCULAR: Regular rate and rhythm without murmurs, rubs or gallops. RESPIRATORY: Breath sounds equal bilaterally, no wheezes rales or rhonchi. ABDOMEN: Soft, nontender. Normoactive bowel sounds all 4 quadrants. No guarding or rebound. EXTREMITIES: Normal range of motion, no clubbing or edema. Neurovascularly intact NEUROLOGICAL: Alert and oriented x4.Normal gait and speech. SKIN: Warm, dry, no laceration, no petechiae, no rashes or lesions. Course Orders Ordered: ED Orders 07/11/21 09:55 XR chest 2V Stat EKG-12 Lead Stat Vital Signs Vital signs: Vital Signs - 8 hr 07/11/21 10:08 Temperature 97.7 F Pulse Rate 117 H Respiratory Rate 24 Blood Pressure 152/85 H Pulse Oximetry 96 [facility] - Chest Pain Imaging Data Chest x-ray: Radiologist's Impression: PROCEDURE:? XR CHEST 2V ? INDICATIONS:? chest pain ? TECHNIQUE:? 2 views of the chest were acquired.? ? COMPARISON:? [facility], , CHEST 1 VIEW, 05/30/2007, 18:04. ? FINDINGS:? ? Surgical changes and devices:? None.? ? Lungs and pleura:? Lungs are clear.? No pleural effusions or pneumothorax.? ? Mediastinum:? Mediastinal contours are normal.? Heart size is normal.? ? Bones and chest wall:? No suspicious bony abnormalities.? Soft tissues appear unremarkable.? ? ? IMPRESSION:? ? The cause of chest pain is not identified. ? No displaced rib fracture or pneumothorax can be seen. ? ? Dictated by: Cruz Wright M.D. on 07/11/2021 at 9:26 ? ? Approved by: Cruz Wright M.D. on 07/11/2021 at 9:27 ? ECG Data Interpretation: Normal sinus rhythm rate 109 CA interval 128 QRS 84 QTC 449 some artifact noted. MDM Narrative Medical decision making narrative: Patient is not suicidal or homicidal asked many times. He does seem mildly confused but certainly not involuntary. He actually did not mention chest pain and could not really describe it. Talked mostly about of social issues. Police mention the chest pain. EKG and chest x-ray are negative. He has been cooperative for the emergency department. [facility] also do have mental health services which will be offered to him according to the officers with him. Discharge Plan Departure Patient Disposition: Released, Other Clinical Impression: Atypical chest pain, Adjustment disorder Instructions: DI for Atypical Chest Pain Activity Restrictions/Additional Instructions: Medically fit for long term *You have been diagnosed with atypical chest pain *What to do: At this time please follow-up with primary care provider. *Continue to take medications as directed *Follow up with your primary care provider in 2-3 days *Return to ER if you should have increasing chest pain, harming yourself or others or any new, worsening or concerning symptoms Referrals: Vivian Christian PA-C [Primary Care Provider] -
[2021-07-11 10:08] VITALS: BP 152/85; PULSE 117; RESP 24; TEMP 36.5; O2SAT 96; BMI 21.6
== END 2021-07-11 10:45 | disposition home or self-care (01) ==
PROVIDERS: Emergency Provider Emergency Medicine; PCP Physician Assistant
DX: R07.89 Other chest pain (principal); F43.20 Adjustment disorder, unspecified
CPT/HCPCS: 71046; 93005; 93010; 99283; 99284

== ENCOUNTER 2021-11-14 09:44 | Emergency (ER) | payer OTHER, MEDICAID, SELFPAY ==
[2021-11-14] VITALS (7 sets, daily range): BP systolic 120–127; BP diastolic 71–76; PULSE 83–93; RESP 16–18; TEMP 36.4; O2SAT 96–99; BMI 25.0
--- NOTE | 2021-11-14 10:09 | DI.RAD.S_ITS ---
PROCEDURE: XR CHEST 1V INDICATIONS: chest pain TECHNIQUE: One view of the chest was acquired. COMPARISON: [facility], JOELLEN, XR CHEST 2V, 07/11/2021, 10:07. [facility], JOELLEN, CHEST 1 VIEW, 05/30/2007, 18:04. FINDINGS: Surgical changes and devices: None. Lungs and pleura: Lungs are clear. No pleural effusions or pneumothorax. Mediastinum: Mediastinal contours appear normal. Heart size is normal. Bones and chest wall: No suspicious bony lesions. Overlying soft tissues appear unremarkable. IMPRESSION: No acute cardiopulmonary abnormality. Dictated by: Andrew Aguayo M.D. on 11/14/2021 at 9:57 Approved by: Andrew Aguayo M.D. on 11/14/2021 at 10:01
[2021-11-14 10:18] LABS: Add Manual Diff / Slide Review NO; Basophils Absolute Auto 100 /uL (0-100); Basophils Percent Auto 0.7 % (0-2); Eosinophils Absolute Auto 300 /uL (0-450); Eosinophils Percent Auto 2.8 % (2-4); Hematocrit 40.5 % (41-53); Lymphocytes Absolute Auto 3200 /uL (1100-4500); Mean Corpuscular HGB Conc 34.5 % (30-36); Mean Corpuscular Hemoglobin 31.6 PG (26-34); Mean Corpuscular Volume 91.7 fL (80-100); Monocytes Absolute Auto 1000 /uL (0-900); Monocytes Percent Auto 10.6 % (3-14); Neutrophils Absolute Auto 4900 /uL (1500-7000); Neutrophils Percent Auto 51.9 % (50-75); Platelet Count 326 X10^3/uL (150-400); Red Blood Cell Count 4.42 X10^6/uL (4.5-5.9); Red Cell Distribution Width 14.3 % (11.6-14.8); White Blood Cell Count 9.4 X10^3/uL (4.5-11.0)
[2021-11-14 10:23] LABS: Alanine Aminotransferase 28 IU/L (<50); Albumin 4.6 g/dL (3.5-5.0); Albumin Globulin Ratio 1.4 (1.0-2.8); Alkaline Phosphatase 43 U/L (38-126); Aspartate Aminotransferase 36 IU/L (17-59); BUN Creatinine Ratio 17.6 (6-22); Bilirubin Total 0.7 mg/dL (0.2-1.3); Blood Urea Nitrogen 12 mg/dL (9-20); Calcium 8.8 mg/dL (8.4-10.2); Carbon Dioxide 31 mmol/L (22-32); Chloride 104 mmol/L (98-107); Creatine Kinase 112 U/L (55-170); Estimated Glomerular Filt Rate > 60.0 mL/min (>60); Globulin 3.3 g/dL (1.7-4.1); Glucose 95 mg/dL (70-100); Lipase 61 U/L (23-300); Magnesium 2.1 mg/dL (1.6-2.3); Potassium 4.7 mmol/L (3.4-5.1); Sodium 138 mmol/L (137-145); Total Protein 7.9 g/dL (6.3-8.2)
[2021-11-14 10:28] LABS: HEMOLYSIS 75 (0-50)
[2021-11-14 10:34] LABS: Troponin I < 0.012 ng/mL (0.01-0.034)
[2021-11-14 10:37] LABS: CKMB % Relative Index 0.7 % (1.5-5.0); Creatine Kinase MB 0.73 ng/mL (<2.37)
[2021-11-14 10:46] LABS: Lipase 62 U/L (23-300)
[2021-11-14] MEDS: MAG HYDROX/ALUMINUM/SIMETH SUS 20 ML, LIDOCAINE VISCOUS 2% 15 ML PO (10:58)
[2021-11-14] MEDS: PANTOPRAZOLE 40 MG VIAL IV (10:58)
--- NOTE | 2021-11-14 12:28 | ED_ITS ---
HPI - Chest Pain General Chief Complaint: Chest Pain Stated Complaint: Chest pain Time Seen by Provider: 11/14/21 10:13 Source: patient Mode of arrival: Ambulatory Limitations: no limitations History of Present Illness HPI narrative: The patient was well when he went to bed last night. He awoke with pain below his distal sternum. Pain does not radiate up in the chest. He has no back pain. He denies nausea, vomiting or diarrhea. He has no palpitations or dyspnea. He has no cough. He has no history of cardiopulmonary disease. Likewise, he has no history of chronic GI issues. He denies hiatal hernia, GE RD, or gastritis. He does smoke cigarettes, about 1 pack daily. He does not use alcohol or drugs. He has no acute illness. He denies fever chills. He has no nausea or diarrhea with the current symptoms. He denies back pain. He has no urinary complaints. His medical history is significant for anxiety and opiate dependence. Related Data Previous Rx's Medication Instructions Recorded omeprazole magnesium 20 mg 20 mg PO DAILY #60 tab 11/14/21 tablet,delayed release (Prilosec OTC) Allergies Allergy/AdvReac Type Severity Reaction Status Date / Time No Known Drug Allergies Allergy Verified 07/11/21 10:11 Review of Systems Constitutional Constitutional: Denies anorexia, Denies body ache(s), Denies chills, Denies fatigue and Denies fever(s) Eyes Eyes: Denies change in vision ENT Ears, Nose, Mouth, and Throat: Denies vertigo, Denies dizziness, Denies sinus pain and Denies sinus pressure Cardiovascular Cardiovascular: Reports chest pain (See HPI.), Denies syncope, Denies rapid heart rate, Denies pedal edema, Denies irregular heart rhythm, Denies lig htheadedness and Denies dyspnea Respiratory Respiratory: Denies chest congestion, Denies cough and Denies dyspnea Gastrointestinal Gastrointestinal: Reports as per HPI Genitourinary Genitourinary: Denies dysuria Musculoskeletal Musculoskeletal: Denies arthralgias, Denies back pain and Denies myalgias Integumentary/Breasts Skin/Breast: Denies rash Neurologic Neurologic: Denies confusion, Denies vertigo, Denies dizziness and Denies syncope Psychiatric Psychiatric: Denies confusion and Denies depression Endocrine Endocrine: Denies fatigue Patient History Medical History Anxiety Medication refill Opiate dependence, continuous (01/12/17) Rash of genitalia Surgical History No significant past surgical history Social History Smoking Status: Current some day smoker Smoking Status: Current some day smoker tobacco type: cigarettes alcohol intake frequency: a few times a week Substance Use Type: marijuana, heroin and methamphetamine Exam Initial Vital Signs Initial Vital Signs: Vital Signs Temperature 97.5 F L 11/14/21 10:00 Pulse Rate 92 H 11/14/21 10:00 Respiratory Rate 18 11/14/21 10:00 Blood Pressure 121/73 11/14/21 10:00 Pulse Oximetry 99 11/14/21 10:00 Const General: cooperative, healthy appearing, comfortable, well developed and well groomed HENMT Head: normocephalic and atraumatic Mouth: oral mucosae normal Throat: posterior oropharynx normal Eyes General: appearance normal, both eyes and all related structures (No icterus) Neck Neck: full ROM and No tender Chest Chest: normal inspection of the chest (No palpable tenderness) Resp Effort & Inspection: normal respiratory effort Auscultation: clear to auscultation bilaterally Cardio Rate: regular rate Rhythm: regular rhythm Heart Sounds: S1 normal, S2 normal and normal S1 and S2 GI Other: Epigastric abdominal pain. No distension. No guarding rebound. No masses. Normal bowel sounds. Back/Spine/Pelvis Back: normal to inspection and No CVA tenderness Skin General: no rashes or lesions noted Neuro General: patient alert, patient awake, patient oriented x3 and no focal motor deficits Extrem General: normal to inspection, full ROM and no calf tenderness Psych Mental Status: mental status grossly normal Course Course Course Narrative: Patient's symptoms have improved after receiving GI cocktail and Prilosec. Cardiac workup is benign. Exam is consistent with gastritis versus GERD. He will be discharged on Prilosec. He is advised to stop smoking. Orders Ordered: ED Orders 11/14/21 10:05 Complete Blood Count AUTO DIFF Stat Comprehensive Metabolic Panel Stat Lipase Stat Lipase Stat Magnesium Stat Troponin & CK Cardiac Panel Stat 11/14/21 10:09 XR chest 1V Stat Discontinued Medications Al Hydrox/Mg Hydrox/Simethicone 20 ml/ Lidocaine HCl 15 ml 0 ml PO NOW ONE Stop: 11/14/21 10:35 Last Admin: 11/14/21 10:58 Dose: 35 ml Documented by: MONIKA Pantoprazole Sodium (Pantoprazole 40 Mg Vial) 40 mg IV NOW ONE Stop: 11/14/21 10:34 Last Admin: 11/14/21 10:58 Dose: 40 mg Documented by: MONIKA Vital Signs Vital signs: Vital Signs - 8 hr 11/14/21 10:00 11/14/21 10:04 11/14/21 10:30 Temperature 97.5 F L Pulse Rate 92 H 93 H 87 Respiratory Rate 18 17 17 Blood Pressure 121/73 126/76 Pulse Oximetry 99 97 96 11/14/21 11:00 11/14/21 11:30 Temperature Pulse Rate 85 83 Respiratory Rate 17 16 Blood Pressure 127/76 120/71 Pulse Oximetry 96 96 MDM - Chest Pain Lab Data Result diagrams: 11/14/21 10:05 11/14/21 10:05 Labs: Lab Results 11/14/21 11/14/21 11/14/21 Range/Units 10:05 10:05 10:05 WBC 9.4 (4.5-11.0) X10^3/uL RBC 4.42 L (4.5-5.9) X10^6/uL Hgb 14.0 (13.5-17.5) g/dL Hct 40.5 L (41-53) % MCV 91.7 (80-100) fL MCH 31.6 (26-34) PG MCHC 34.5 (30-36) % RDW 14.3 (11.6-14.8) % Plt Count 326 (150-400) X10^3/uL Neut % (Auto) 51.9 (50-75) % Lymph % (Auto) 34.0 (25-40) % [place] % (Auto) 10.6 (3-14) % Eos % (Auto) 2.8 (2-4) % Baso % (Auto) 0.7 (0-2) % Neut # (Auto) 4900 (5321-3290) /uL Lymph # (Auto) 3200 (7732-7097) /uL [place] # (Auto) 1000 H (0-900) /uL Eos # (Auto) 300 (0-450) /uL Baso # (Auto) 100 (0-100) /uL Sodium 138 (137-145) mmol/L Potassium 4.7 (3.4-5.1) mmol/L Chloride 104 (98-107) mmol/L Carbon Dioxide 31 (22-32) mmol/L BUN 12 (9-20) mg/dL Creatinine 0.68 (0.66-1.25) mg/dL Estimated GFR > 60.0 (>60) mL/min BUN/Creatinine Ratio 17.6 (6-22) Glucose 95 (70-100) mg/dL Calcium 8.8 (8.4-10.2) mg/dL Magnesium 2.1 (1.6-2.3) mg/dL Total Bilirubin 0.7 (0.2-1.3) mg/dL AST 36 (17-59) IU/L ALT 28 (<50) IU/L Alkaline Phosphatase 43 (38-126) U/L Total Creatine Kinase 112 (55-170) U/L CK-MB (CK-2) 0.73 (<2.37) ng/mL CK-MB (CK-2) Rel Index 0.7 L (1.5-5.0) % Troponin I < 0.012 (0.01-0.034) ng/mL Total Protein 7.9 (6.3-8.2) g/dL Albumin 4.6 (3.5-5.0) g/dL Globulin 3.3 (1.7-4.1) g/dL Albumin/Globulin Ratio 1.4 (1.0-2.8) Lipase 61 62 (23-300) U/L Imaging Data Chest x-ray: Radiologist's Impression: No acute cardiopulmonary disease. ECG Data Attestation: I personally reviewed and interpreted this ECG as follows: (EKG: Normal sinus rhythm rate 91 beats per minute. Normal intervals. No ectopy. No acute ST T wave changes.) Discharge Plan Departure Patient Disposition: Home Clinical Impression: Epigastric abdominal pain Instructions: DI for Epigastric Pain Activity Restrictions/Additional Instructions: Crisp diet as we discussed. Prilosec 20 mg daily. I recommend you stop smoking. Seek follow-up in about 10 days. Establish care with a primary care doctor. Consider going back to the walk-in clinic for repeat evaluation. Prescriptions: New omeprazole magnesium [Prilosec OTC] 20 mg tablet,delayed release (DR/EC) 20 mg PO DAILY Qty: 60 0RF
== END 2021-11-14 12:58 | disposition home or self-care (01) ==
PROVIDERS: Emergency Provider Emergency Medicine
DX: R10.13 Epigastric pain (principal); F17.210 Nicotine dependence, cigarettes, uncomplicated
CPT/HCPCS: 36415; 71045; 80053; 82550; 82553; 83690; 83735; 84484; 85025; 93005; 93010; 96374; 99284; C9113

== ENCOUNTER 2021-11-15 22:15 | Emergency (ER) | payer OTHER, MEDICAID, SELFPAY ==
[2021-11-15 22:21] VITALS: BP 146/84; PULSE 89; RESP 15; TEMP 36.8; O2SAT 100; BMI 25.0
--- NOTE | 2021-11-15 22:24 | DI.RAD.S_ITS ---
PROCEDURE: XR CHEST 1V INDICATIONS: chest pain TECHNIQUE: One view of the chest was acquired. COMPARISON: [facility], CR, XR CHEST 1V, 11/14/2021, 10:31. FINDINGS: Surgical changes and devices: None. Lungs and pleura: Lungs are clear. No pleural effusions or pneumothorax. Mediastinum: Mediastinal contours appear normal. Heart size is normal. Bones and chest wall: No suspicious bony lesions. Overlying soft tissues appear unremarkable. IMPRESSION: No acute cardiopulmonary disease process. Dictated by: Monik Baker MD, PhD on 11/15/2021 at 22:42 Approved by: Monik Baker MD, PhD on 11/15/2021 at 22:43
[2021-11-15 22:40] LABS: Add Manual Diff / Slide Review NO; Basophils Absolute Auto 100 /uL (0-100); Eosinophils Absolute Auto 200 /uL (0-450); Eosinophils Percent Auto 1.6 % (2-4); Hematocrit 40.3 % (41-53); Hemoglobin 13.7 g/dL (13.5-17.5); Lymphocytes Absolute Auto 3100 /uL (1100-4500); Lymphocytes Percent Auto 27.5 % (25-40); Mean Corpuscular Hemoglobin 31.1 PG (26-34); Mean Corpuscular Volume 91.6 fL (80-100); Monocytes Absolute Auto 900 /uL (0-900); Monocytes Percent Auto 8.5 % (3-14); Neutrophils Absolute Auto 6900 /uL (1500-7000); Neutrophils Percent Auto 61.4 % (50-75); Platelet Count 322 X10^3/uL (150-400); Red Cell Distribution Width 14.2 % (11.6-14.8); White Blood Cell Count 11.2 X10^3/uL (4.5-11.0)
[2021-11-15 22:49] LABS: Alanine Aminotransferase 35 IU/L (<50); Albumin 4.8 g/dL (3.5-5.0); Albumin Globulin Ratio 1.4 (1.0-2.8); Alkaline Phosphatase 50 U/L (38-126); Aspartate Aminotransferase 28 IU/L (17-59); BUN Creatinine Ratio 21.6 (6-22); Bilirubin Total 0.5 mg/dL (0.2-1.3); Blood Urea Nitrogen 16 mg/dL (9-20); Calcium 9.4 mg/dL (8.4-10.2); Carbon Dioxide 30 mmol/L (22-32); Chloride 103 mmol/L (98-107); Creatine Kinase 96 U/L (55-170); Estimated Glomerular Filt Rate > 60.0 mL/min (>60); Globulin 3.4 g/dL (1.7-4.1); Glucose 106 mg/dL (70-100); HEMOLYSIS < 15 (0-50); Lipase 50 U/L (23-300); Magnesium 1.9 mg/dL (1.6-2.3); Sodium 140 mmol/L (137-145); Total Protein 8.2 g/dL (6.3-8.2)
[2021-11-15 23:00] LABS: Troponin I < 0.012 ng/mL (0.01-0.034)
[2021-11-15 23:16] VITALS: PULSE 85; O2SAT 95
[2021-11-15 23:18] VITALS: BP 136/89; PULSE 91; O2SAT 97
[2021-11-15 23:30] VITALS: BP 142/89; PULSE 85; O2SAT 95
[2021-11-16] VITALS: BP 141/90; PULSE 80; O2SAT 96
--- NOTE | 2021-11-16 00:01 | ED.CHESTPAIN ---
HPI - Chest Pain General Chief Complaint: Chest Pain Stated Complaint: Left chest pain with radiating down arm today Time Seen by Provider: 11/15/21 22:21 Source: patient Mode of arrival: Ambulatory Limitations: no limitations Limitations: no limitations History of Present Illness HPI narrative: This is a 35-year-old male who comes with complaint of left-sided chest pain. Patient states pain started about 10:00pm. this evening. There is still a slight amount present but is resolving. Patient states he has had intermittently over the last couple days. He nothing seems to exacerbated or alleviated. States it is left-sided go down the left arm. He denies fevers or chills. No cold, cough or congestion. No shortness of breath. Occasionally had nausea but not associated with the chest discomfort. He denies any vomiting. No rashes or skin changes. No trauma or injury. He denies any abdominal pain. No issues with bowel movements or urination. No swelling in his extremities. Patient states he is on Seroquel and BuSpar daily. Denies surgeries. Denies allergies to medications. He does use tobacco. States he quit using alcohol. He used heroin earlier today couple hours before chest pain. And occasionally uses THC. Family history no cardiac, embolic or pulmonary history. He does not have a primary care physician. Related Data Previous Rx's Medication Instructions Recorded omeprazole magnesium 20 mg 20 mg PO DAILY #60 tab 11/14/21 tablet,delayed release (Prilosec OTC) Allergies Allergy/AdvReac Type Severity Reaction Status Date / Time No Known Drug Allergies Allergy Verified 07/11/21 10:11 Review of Systems Review of Systems ROS Unobtainable: All systems reviewed & are unremarkable except as noted in HPI and below Patient History Medical History Anxiety Medication refill Opiate dependence, continuous (01/12/17) Rash of genitalia Surgical History No significant past surgical history Social History Smoking Status: Current some day smoker Smoking Status: Current some day smoker tobacco type: cigarettes alcohol intake frequency: a few times a week Substance Use Type: marijuana, heroin and methamphetamine Exam Narrative Exam Narrative: GENERAL: Alert and oriented x three, male in mild distress. HEENT: Head normocephalic, atraumatic, EOMI, pupils reactive, face symmetric, moist mucous membranes NECK: Supple, full range of motion CARDIOVASCULAR: Regular rate and rhythm without murmurs, rubs or gallops. RESPIRATORY: Breath sounds equal bilaterally, no wheezes rales or rhonchi. ABDOMEN: Soft, nontender. Normoactive bowel sounds all 4 quadrants. No guarding or rebound, rigidity, no mass : No CVA tenderness EXTREMITIES: Normal range of motion, no clubbing or edema. Neurovascularly intact. Patient indicates pain is maybe more in the axilla. He is nontender to palpation. No erythema, warmth or skin changes. NEUROLOGICAL: Cranial nerves II through XII grossly intact. Moving all extremities SKIN: Warm, dry, no petechiae, no rashes or lesions. Initial Vital Signs Initial Vital Signs: Vital Signs Temperature 98.2 F 11/15/21 22:21 Pulse Rate 89 11/15/21 22:21 Respiratory Rate 15 11/15/21 22:21 Blood Pressure 146/84 H 11/15/21 22:21 Pulse Oximetry 100 11/15/21 22:21 Scores HEART Score Heart Score history: Slightly Suspicious Heart Score EKG: Normal Heart Score Age: < 45 years old Heart Score risk factors: No known risk factors Heart Score troponin: < or = to normal limit Heart Score Total: 0 Course Orders Ordered: ED Orders 11/15/21 22:21 EKG-12 Lead Stat 11/15/21 22:24 XR chest 1V Stat Complete Blood Count AUTO DIFF Stat Comprehensive Metabolic Panel Stat Lipase Stat Magnesium Stat Troponin & CK Cardiac Panel Stat 11/16/21 00:21 Trop I [Troponin I] Stat Discontinued Medications Naloxone HCl (Naloxone 4 Mg Nasal [place]) 4 mg MISC SEEINSTR ONE Stop: 11/16/21 01:12 Last Admin: 11/16/21 01:22 Dose: 4 mg Documented by: MEGAN Reevaluation(s) Reevaluation #1: Patient still asymptomatic. Her reviewed his findings today. Patient did state he does use heroin he last used earlier today. Clear his pain is related to this but we discussed resources. He is open to having our outreach and education social worker for reach out to him for potential resources and some additional questions that he would like to ask her. They are unavailable this time a day. Patient and I also discussed we can provide him with a Narcan prepack. Time: 01:17 Vital Signs Vital signs: Vital Signs - 8 hr 11/15/21 22:21 11/15/21 23:16 11/15/21 23:18 Temperature 98.2 F Pulse Rate 89 85 91 H Respiratory Rate 15 Blood Pressure 146/84 H 136/89 Pulse Oximetry 100 95 97 11/15/21 23:30 11/16/21 00:00 11/16/21 00:30 Temperature Pulse Rate 85 80 81 Respiratory Rate Blood Pressure 142/89 H 141/90 H 142/90 H Pulse Oximetry 95 96 96 11/16/21 01:00 Temperature Pulse Rate 79 Respiratory Rate Blood Pressure 136/82 Pulse Oximetry 96 MDM - Chest Pain Lab Data Result diagrams: 11/15/21 22:24 11/15/21 22:24 Labs: Lab Results 11/15/21 11/15/21 11/16/21 Range/Units 22:24 22:24 00:21 WBC 11.2 H (4.5-11.0) X10^3/uL RBC 4.40 L (4.5-5.9) X10^6/uL Hgb 13.7 (13.5-17.5) g/dL Hct 40.3 L (41-53) % MCV 91.6 (80-100) fL MCH 31.1 (26-34) PG MCHC 34.0 (30-36) % RDW 14.2 (11.6-14.8) % Plt Count 322 (150-400) X10^3/uL Neut % (Auto) 61.4 (50-75) % Lymph % (Auto) 27.5 (25-40) % [place] % (Auto) 8.5 (3-14) % Eos % (Auto) 1.6 L (2-4) % Baso % (Auto) 1.0 (0-2) % Neut # (Auto) 6900 (3966-2591) /uL Lymph # (Auto) 3100 (1685-7809) /uL [place] # (Auto) 900 (0-900) /uL Eos # (Auto) 200 (0-450) /uL Baso # (Auto) 100 (0-100) /uL Sodium 140 (137-145) mmol/L Potassium 4.0 (3.4-5.1) mmol/L Chloride 103 (98-107) mmol/L Carbon Dioxide 30 (22-32) mmol/L BUN 16 (9-20) mg/dL Creatinine 0.74 (0.66-1.25) mg/dL Estimated GFR > 60.0 (>60) mL/min BUN/Creatinine Ratio 21.6 (6-22) Glucose 106 H (70-100) mg/dL Calcium 9.4 (8.4-10.2) mg/dL Magnesium 1.9 (1.6-2.3) mg/dL Total Bilirubin 0.5 (0.2-1.3) mg/dL AST 28 (17-59) IU/L ALT 35 (<50) IU/L Alkaline Phosphatase 50 (38-126) U/L Total Creatine Kinase 96 (55-170) U/L CK-MB (CK-2) TNP CK-MB (CK-2) Rel Index TNP Troponin I < 0.012 < 0.012 (0.01-0.034) ng/mL Total Protein 8.2 (6.3-8.2) g/dL Albumin 4.8 (3.5-5.0) g/dL Globulin 3.4 (1.7-4.1) g/dL Albumin/Globulin Ratio 1.4 (1.0-2.8) Lipase 50 (23-300) U/L Imaging Data Chest x-ray: Radiologist's Impression: [address] [address] XRay Report Signed Patient: Wale Todd MR#: [id number] : 1985 Acct:[id number] Age/Sex: 35 / M Date of Service: 11/15/21 Loc: ED Accession Number: [id number] ?? Procedure: XR chest 1V Ordering Provider: Nichelle Ball D.O. PROCEDURE:? XR CHEST 1V ? INDICATIONS:? chest pain ? TECHNIQUE:? One view of the chest was acquired.? ? COMPARISON:? [facility], , XR CHEST 1V, 11/14/2021, 10:31. ? FINDINGS:? ? Surgical changes and devices:? None.? ? Lungs and pleura:? Lungs are clear.? No pleural effusions or pneumothorax.? ? Mediastinum:? Mediastinal contours appear normal.? Heart size is normal.? ? Bones and chest wall:? No suspicious bony lesions.? Overlying soft tissues appear unremarkable.? ? IMPRESSION:? No acute cardiopulmonary disease process. ? ? Dictated by: Monik Baker MD, PhD on 11/15/2021 at 22:42 ? ? Approved by: Monik Baker MD, PhD on 11/15/2021 at 22:43 ECG Data Attestation: I personally reviewed and interpreted this ECG as follows: Prior ECG tracings: available for review Interpretation: Sinus rhythm rate of 91 CT 162 QRS of 90 [address]TC [address] No acute [address] changes appreciated. Patient has priors from 07/11/2021 and 2017 which appears similar. MDM Narrative Medical decision making narrative: This is a 35-year-old male with left chest pain which has resolved. Patient's EKG does not show any acute changes appears similar to priors with negative troponin x2, number chest x-ray and no acute lab findings. It is noted that he does not have many risk factors but does use heroin and last used today. Patient was somewhat reluctant to share this information. Patient and I discussed resources for assistance with opiate dependence. Patient is open having our outreach and education social worker reach out to him and gave me an additional phone number for them to contact which is included face sheet to the [employer]. Also Narcan prepack was provided. All questions answered. Return precautions discussed. Patient feels comfortable with this plan. Discharge Plan Departure Patient Disposition: Home Clinical Impression: Chest pain Instructions: DI for Chest Pain, Naloxone for Opiate Overdose - [facility] Activity Restrictions/Additional Instructions: Follow-up for recheck if you continue to have persistent symptoms. If you are interested in resources to assist in stopping using drugs you can call our outreach and education social worker at [phone] they are typically present Tuesday through Tuesday from noon to 8:00 p.m.. I will ask our outreach and education social worker to reach out to you either today Tuesday or Tuesday. You have been provided narcan today. Please return for fevers, new chest pain or shortness of breath, lightheadedness or passing out, persistent vomiting, new swelling in your extremities or other new or concerning symptoms. Prescriptions: No Action omeprazole magnesium [Prilosec OTC] 20 mg tablet,delayed release (DR/EC) 20 mg PO DAILY Qty: 60 0RF Referrals: Vivian Christian PA-C [Primary Care Provider] -
[2021-11-16 00:30] VITALS: BP 142/90; PULSE 81; O2SAT 96
[2021-11-16 00:53] LABS: Troponin I < 0.012 ng/mL (0.01-0.034)
[2021-11-16 01:00] VITALS: BP 136/82; PULSE 79; O2SAT 96
[2021-11-16] MEDS: NALOXONE 4 MG NASAL SPRAY MISC (01:22)
== END 2021-11-16 01:35 | disposition home or self-care (01) ==
PROVIDERS: Emergency Provider Emergency Medicine; PCP Physician Assistant
DX: R07.9 Chest pain, unspecified (principal); F17.210 Nicotine dependence, cigarettes, uncomplicated
CPT/HCPCS: 36415; 71045; 80053; 82550; 83690; 83735; 84484; 85025; 93005; 93010; 99284; A9270

== ENCOUNTER 2021-11-20 07:55 | Emergency (ER) | payer OTHER, MEDICAID, SELFPAY ==
[2021-11-20 07:58] VITALS: BP 147/90; PULSE 118; RESP 18; TEMP 37.1; O2SAT 96; BMI 25.7
--- NOTE | 2021-11-20 08:02 | ED_ITS ---
HPI - SOB/Dyspnea General Chief Complaint: Chest Pain Stated Complaint: fatigue/sob Time Seen by Provider: 11/20/21 08:01 History of Present Illness HPI Narrative: 35-year-old male smoker with noncontributory chronic medical history presents for the 3rd time this week for evaluation of left-sided chest pain and shortness of breath. He has had multiple visits with extensive workups including reassuring labs, imaging and EKG. He states that he has ongoing left- sided chest pain without obvious provocation, palliation or radiation. Denies fever chills. He is not dizzy nor weak or lightheaded. He denies any ongoing cough or cardia: Such as unexplained diaphoresis exertional fatigue or other. Related Data Previous Rx's Medication Instructions Recorded omeprazole magnesium 20 mg 20 mg PO DAILY #60 tab 11/14/21 tablet,delayed release (Prilosec OTC) Allergies Allergy/AdvReac Type Severity Reaction Status Date / Time No Known Drug Allergies Allergy Verified 07/11/21 10:11 Review of Systems Review of Systems Narrative: GENERAL: Denies chills, fatigue, malaise, fever, sweats. HEENT: Denies sinus pain, ear pain, sore throat, difficulty swallowing, dizziness. RESPIRATORY: See HPI CARDIOVASCULAR: See HP(I GASTROINTESTINAL: Denies nausea, vomiting, abdominal pain, diarrhea, constipation, melena. : Denies dysuria, frequency, incontinence, hematuria, urinary retention. MUSCULOSKELETAL: denies weakness, joint pain, or bony pain SKIN: Denies rash, skin lesions, or other NEUROLOGIC: Denies weakness, headache, numbness, change in speech, confusion, seizures, incoordination. PSYCHIATRIC: No concerning psychosocial issues. 12 point review of systems is negative except for those stated above Patient History Medical History Anxiety Medication refill Opiate dependence, continuous (01/12/17) Rash of genitalia Surgical History No significant past surgical history Social History Smoking Status: Current some day smoker Smoking Status: Current some day smoker tobacco type: cigarettes alcohol intake frequency: a few times a week Substance Use Type: marijuana, heroin and methamphetamine Exam Narrative Exam Narrative: GENERAL: [35] year old patient appears stated age. Well-developed patient, in mild distress. ANxious HEAD: Atraumatic. Normocephalic. EYES: Pupils equal round and reactive. Extraocular motions intact. No scleral icterus. No injection or drainage. ENT: Nose without bleeding, purulent drainage. Throat without erythema, tonsillar hypertrophy or exudate. Airway patent. NECK: Trachea midline. Non tender CARDIOVASCULAR: Regular rate and rhythm without murmurs, gallops, or rubs. RESPIRATORY: Clear to auscultation. Breath sounds equal bilaterally. No wheezes, rales, or rhonchi. GASTROINTESTINAL: Abdomen soft, non-tender, nondistended. EXTREMITIES: No edema or joint tenderness. BACK: Nontender without deformity or crepitance. No flank tenderness. NEURO: AOx3. SKIN: No rash or erythema of visible areas Initial Vital Signs Initial Vital Signs: Vital Signs Temperature 98.8 F 11/20/21 07:58 Pulse Rate 118 H 11/20/21 07:58 Respiratory Rate 18 11/20/21 07:58 Blood Pressure 147/90 H 11/20/21 07:58 Pulse Oximetry 96 11/20/21 07:58 Course Orders Ordered: Discontinued Medications Sodium Chloride (Normal Saline 0.9%) 1,000 mls @ 1,000 mls/hr IV BOLUS ONE Stop: 11/20/21 09:05 MDM - SOB/Dyspnea MDM Narrative Medical decision making narrative: Soon after my evaluation and extensive orders are put in patient elects to leave. It is unclear why he wants to leave and he is largely unwilling to discuss. He understands our concerns and the risk of leaving includes permanent disability or even . He understands that he may return immediately if he changes his mind. Discharge Plan Departure Patient Disposition: Left Against Medical Advice Clinical Impression: Patient left care setting after refusal of treatment Prescriptions: No Action omeprazole magnesium [Prilosec OTC] 20 mg tablet,delayed release (DR/EC) 20 mg PO DAILY Qty: 60 0RF Referrals: Vivian Christian PA-C [Primary Care Provider] - Stand Alone Forms: Against Medical Advice
--- NOTE | 2021-11-20 08:27 | PC.NURSE ---
went to start IV pt refused stating hes been poked enough. Explained to patient that the Dr ordered a scan of his chest to rule out a clot in his lungs but patient still refusing. Notified Sravani FERNÁNDEZ charge to talk to patient, notified provider.
--- NOTE | 2021-11-20 08:42 | PC.NURSE ---
during triage pt asked a couple of times if he could get a booster shot, i explained he'd have to get that in town at a pharmacy. I went back into the room he is on the phone discussing his appt to get right over to [facility] for his medication. I explained the risk of leaving right now and that the clinic will likely tell him to come back.
== END 2021-11-20 08:50 | disposition left against medical advice (07) ==
PROVIDERS: Emergency Provider Emergency Medicine; PCP Physician Assistant
DX: R07.9 Chest pain, unspecified (principal); Z53.29 Procedure and treatment not carried out because of patient's decision for other reasons; F17.210 Nicotine dependence, cigarettes, uncomplicated
CPT/HCPCS: 93005; 93010; 99282; 99283

== ENCOUNTER 2022-02-08 16:26 | Emergency (ER) | payer OTHER, MEDICAID, SELFPAY ==
[2022-02-08 17:06] VITALS: BP 132/76; PULSE 99; RESP 17; TEMP 36.7; O2SAT 99; BMI 25.0
[2022-02-08 18:12] LABS: COVID19 -Nasal RAPID Negative (Negative)
== END 2022-02-08 20:42 | disposition left against medical advice (07) ==
PROVIDERS: Emergency Medicine; Emergency Provider Emergency Medicine
DX: Z20.822 Contact with and (suspected) exposure to COVID-19 (principal)
CPT/HCPCS: 87635; 99281; C9803

== ENCOUNTER 2022-02-28 21:18 | Emergency (ER) | payer OTHER, MEDICAID, SELFPAY ==
--- NOTE | 2022-02-28 22:43 | PC.NURSE ---
Pt had originally checked in asking for resources or to talk to the director of social media marketing. Gave him some resources and then he talked about micro-organisms controlling him and decided to check into the ER. Before I was able to triage pt, pt decided the resources that were given to him were good enough according to the front desk person and left before triage.
== END 2022-02-28 22:05 | disposition left against medical advice (07) ==
PROVIDERS: Emergency Provider Emergency Medicine

== ENCOUNTER 2022-10-01 22:39 | Emergency (ER) | payer OTHER, MEDICAID, SELFPAY ==
[2022-10-01 22:45] VITALS: BP 173/94; PULSE 97; RESP 18; TEMP 36.9; O2SAT 100; BMI 24.4
--- NOTE | 2022-10-02 00:21 | ED.PSYCH ---
HPI - Psych General Chief Complaint: Psychiatric Symptoms Stated Complaint: thinks bugs in neck transmitting information Time Seen by Provider: 10/02/22 00:02 Source: patient Mode of arrival: Ambulatory Limitations: no limitations History of Present Illness HPI Narrative: 36-year-old male here for evaluation of what he states are bugs on the back of his head and upper neck that are causing irritation and transmitted infections. He also states there is a bump on his upper neck that is protruding further than what it is supposed to be. Related Data Previous Rx's Medication Instructions Recorded omeprazole magnesium 20 mg 20 mg PO DAILY #60 tabs 11/14/21 tablet,delayed release (Prilosec OTC) Allergies Allergy/AdvReac Type Severity Reaction Status Date / Time No Known Drug Allergies Allergy Verified 10/01/22 22:45 Review of Systems Musculoskeletal Musculoskeletal: Reports system reviewed and no additional complaints, except as documented Integumentary/Breasts Skin/Breast: Reports system reviewed and no additional complaints, except as documented Patient History Medical History Anxiety Medication refill Opiate dependence, continuous (01/12/17) Rash of genitalia Surgical History No significant past surgical history Social History Smoking Status: Current some day smoker Smoking Status: Current some day smoker tobacco type: cigarettes alcohol intake frequency: a few times a week Substance Use Type: marijuana, heroin and methamphetamine Exam Initial Vital Signs Initial Vital Signs: Vital Signs Temperature 98.4 F 10/01/22 22:45 Pulse Rate 97 H 10/01/22 22:45 Respiratory Rate 18 10/01/22 22:45 Blood Pressure 173/94 H 10/01/22 22:45 Pulse Oximetry 100 10/01/22 22:45 Oxygen Delivery Method 10/01/22 22:45 Back/Spine/Pelvis Other: The ?bump? that he feels is the spinous process of T1 Skin Other: There are no rashes, no vesicles, no signs of infection, no signs of bugs in the back of his neck. Course Vital Signs Vital signs: Vital Signs - 8 hr 10/01/22 22:45 10/02/22 00:31 Temperature 98.4 F 98 F Pulse Rate 97 H 82 Respiratory Rate 18 18 Blood Pressure 173/94 H 144/84 H Pulse Oximetry 100 97 Oxygen Delivery Method Room Air Room Air MDM - Psych MDM Narrative Medical decision making narrative: There is no signs of any infection in the back of his neck. Reassured the patient that the bump that he feels is normal and that is the spinous process of T1. No indication for antibiotics. He can use some Benadryl cream feels like there is irritation in the area. No indication for antibiotics. Patient was discharged. Discharge Plan Departure Patient Disposition: Home Clinical Impression: Skin irritation Activity Restrictions/Additional Instructions: You can use a topical Benadryl cream. You can purchase this [id number]. There is no signs of any infection today. Contact your primary doctor for follow-up. Prescriptions: No Action omeprazole magnesium [Prilosec OTC] 20 mg tablet,delayed release (DR/EC) 20 mg PO DAILY Qty: 60 0RF Referrals: Miscellaneous,Doctor, [Primary Care Provider] - Stand Alone Forms: Patient Portal/API
[2022-10-02 00:31] VITALS: BP 144/84; PULSE 82; RESP 18; TEMP 36.6; O2SAT 97
== END 2022-10-02 00:32 | disposition home or self-care (01) ==
PROVIDERS: Emergency Provider Emergency Medicine
DX: R23.8 Other skin changes (principal)
CPT/HCPCS: 99283

== ENCOUNTER 2022-10-06 06:16 | Emergency (ER) | payer OTHER, MEDICAID, SELFPAY ==
[2022-10-06 06:29] VITALS: BP 162/110; PULSE 111; RESP 22; TEMP 36.3; O2SAT 97; BMI 24.4
--- NOTE | 2022-10-06 06:53 | ED.PSYCH ---
HPI - Psych General Chief Complaint: Psychiatric Symptoms Stated Complaint: light headed Time Seen by Provider: 10/06/22 06:21 Source: patient Mode of arrival: Ambulatory History of Present Illness HPI Narrative: 36-year-old male smoker with admission of meth amphetamine history presents for evaluation of possible brain washing and is concerned that there are bugs in his head. He denies any recent trauma or injury and states he is no longer using drugs. He denies any blurred vision, trouble speech or extremity numbness, tingling or weakness. He denies any suicidal or homicidal ideation. He states that he has been connected with some type of support crew but they do understand him and he wants another evaluation. He denies chest pain or shortness of breath. He has no abdominal pain, nausea, vomiting or diarrhea Related Data Previous Rx's Medication Instructions Recorded omeprazole magnesium 20 mg 20 mg PO DAILY #60 tabs 11/14/21 tablet,delayed release (Prilosec OTC) Allergies Allergy/AdvReac Type Severity Reaction Status Date / Time No Known Drug Allergies Allergy Verified 10/01/22 22:45 Review of Systems Review of Systems Narrative: GENERAL: Denies chills, fatigue, malaise, fever, sweats. HEENT: Denies sinus pain, ear pain, sore throat, difficulty swallowing, dizziness. RESPIRATORY: Denies dyspnea, cough, wheezing, hemoptysis, sputum. CARDIOVASCULAR: Denies chest pain, palpitations, orthopnea, edema, GASTROINTESTINAL: Denies nausea, vomiting, abdominal pain, diarrhea, constipation, melena. : Denies dysuria, frequency, incontinence, hematuria, urinary retention. MUSCULOSKELETAL: denies weakness, joint pain, or bony pain SKIN: Denies rash, skin lesions, or other NEUROLOGIC: Denies weakness, headache, numbness, change in speech, confusion, seizures, incoordination. PSYCHIATRIC: See HPI 12 point review of systems is negative except for those stated above Patient History Medical History Anxiety Medication refill Opiate dependence, continuous (01/12/17) Rash of genitalia Surgical History No significant past surgical history Social History Smoking Status: Current some day smoker Smoking Status: Current some day smoker tobacco type: cigarettes alcohol intake frequency: a few times a week Substance Use Type: marijuana, heroin and methamphetamine Exam Narrative Exam Narrative: GEN: AOx3 and in mild distress, anxious, GCS 15 EYES: Pupils are equal, round, and reactive to light and accommodation. Extraoccular muscles are intact bilaterally. There is no subconjunctival hemorrhage or exudate. CHEST: Lungs are clear to auscultation bilaterally and free of wheezes, rales, or rhonchi. Heart rate is regular rhythm, there are no murmurs, clicks, rubs, or gallops. There is no chest wall tenderness. ABD: Abdomen is soft and nontender. There is no guarding or rebound. Bowel sounds are normal in all 4 quadrants. There is no mass or organomegaly. EXT: Full painless ROM of all extremities with no loss of sensation or strength. SKIN: Warm, pink, and dry. No erythema or rash Initial Vital Signs Initial Vital Signs: Vital Signs Temperature 97.4 F L 10/06/22 06:29 Pulse Rate 111 H 10/06/22 06:29 Respiratory Rate 22 10/06/22 06:29 Blood Pressure 162/110 H 10/06/22 06:29 Pulse Oximetry 97 10/06/22 06:29 Oxygen Delivery Method 10/06/22 06:29 Course Orders Ordered: ED Orders 10/06/22 06:33 Consult to SYSTEMS SOFTWARE DEVELOPER - Streetcar Dispatcher Stat 10/06/22 06:45 Complete Blood Count AUTO DIFF Stat Comprehensive Metabolic Panel Stat Ethanol (ETOH) Stat Urine Drug Screen, Rapid Stat Vital Signs Vital signs: Vital Signs - 8 hr 10/06/22 06:29 Temperature 97.4 F L Pulse Rate 111 H Respiratory Rate 22 Blood Pressure 162/110 H Pulse Oximetry 97 Oxygen Delivery Method Room Air MDM - Psych MDM Narrative Medical decision making narrative: [36-year-old male with history of methamphetamine use presents concerned about brain washing] Multiple etiologies for patient's symptoms considered including, but not limited to: [Methamphetamine use, psychiatric illness versus other] Prior Charts reviewed: Prior visits for similar Labs reviewed and interpreted by myself: Patient refused Imaging reviewed: Patient refused Patient with paranoid delusions refuses any workup, does not want to wait for social Work, demonstrates capacity to leave and elects to sign out Against Medical Advice. He understands that he may return at any point without fear of repercussions Discharge Plan Departure Patient Disposition: Left Against Medical Advice Clinical Impression: Anxiety Prescriptions: No Action omeprazole magnesium [Prilosec OTC] 20 mg tablet,delayed release (DR/EC) 20 mg PO DAILY Qty: 60 0RF Stand Alone Forms: Against Medical Advice
== END 2022-10-06 06:52 | disposition left against medical advice (07) ==
PROVIDERS: Emergency Provider Emergency Medicine
CPT/HCPCS: 99283

== ENCOUNTER 2022-10-23 18:07 | Emergency (ER) | payer OTHER, MEDICAID, SELFPAY ==
[2022-10-23 18:17] VITALS: BP 170/93; PULSE 100; RESP 18; TEMP 36.7; O2SAT 96; BMI 25.0
== END 2022-10-23 19:00 | disposition left against medical advice (07) ==
PROVIDERS: Emergency Provider Emergency Medicine
CPT/HCPCS: 99281

== ENCOUNTER 2022-10-30 17:13 | Emergency (ER) | payer OTHER, MEDICAID, SELFPAY ==
[2022-10-30 17:25] VITALS: BP 147/84; PULSE 119; RESP 22; TEMP 36.4; O2SAT 20; BMI 24.4
== END 2022-10-30 17:52 | disposition left against medical advice (07) ==
CPT/HCPCS: 99281

== ENCOUNTER 2022-11-05 10:30 | Emergency (ER) | payer OTHER, MEDICAID, SELFPAY ==
[2022-11-05 10:36] VITALS: BP 149/89; PULSE 98; RESP 15; TEMP 36.5; O2SAT 93; BMI 24.4
== END 2022-11-05 16:50 | disposition left against medical advice (07) ==
PROVIDERS: Emergency Provider Emergency Medicine
CPT/HCPCS: 99281

== ENCOUNTER 2022-11-11 23:11 | Emergency (ER) | payer OTHER, MEDICAID, SELFPAY ==
--- NOTE | 2022-11-11 23:18 | ED_ITS ---
HPI - Abdominal Pain General Chief Complaint: Toxicology Problem Stated Complaint: abd pain Time Seen by Provider: 11/11/22 23:16 History of Present Illness HPI narrative: 36-year-old male smoker with history of methamphetamine abuse, states he had used just earlier today. He smokes only and denies any IV injection. He is here stating that he wants help with methamphetamine abuse. He states that he frequently hears voices and thinks maybe he should have a diagnosis of schizophrenia but he takes no chronic medications. He states that he has been having abnormal sensations in his abdomen for many months. He denies any fever but states on occasion he gets chilled. He denies any nausea, vomiting or diarrhea. He denies any suicidal or homicidal ideation Related Data Previous Rx's Medication Instructions Recorded omeprazole magnesium 20 mg 20 mg PO DAILY #60 tabs 11/14/21 tablet,delayed release (Prilosec OTC) Allergies Allergy/AdvReac Type Severity Reaction Status Date / Time No Known Drug Allergies Allergy Verified 11/05/22 10:36 Review of Systems Review of Systems Narrative: GENERAL: Denies chills, fatigue, malaise, fever, sweats. HEENT: Denies sinus pain, ear pain, sore throat, difficulty swallowing, dizziness. RESPIRATORY: Denies dyspnea, cough, wheezing, hemoptysis, sputum. CARDIOVASCULAR: Denies chest pain, palpitations, orthopnea, edema, GASTROINTESTINAL: See HPI : Denies dysuria, frequency, incontinence, hematuria, urinary retention. MUSCULOSKELETAL: denies weakness, joint pain, or bony pain SKIN: Denies rash, skin lesions, or other NEUROLOGIC: Denies weakness, headache, numbness, change in speech, confusion, seizures, incoordination. PSYCHIATRIC: See HPI 12 point review of systems is negative except for those stated above Patient History Medical History Anxiety Medication refill Opiate dependence, continuous (01/12/17) Rash of genitalia Surgical History No significant past surgical history Social History Smoking Status: Current every day smoker Smoking Status: Current every day smoker tobacco type: cigarettes alcohol intake frequency: 3 or more drinks per day Alcohol type: hard liquor Substance Use Type: marijuana, heroin and methamphetamine Exam Narrative Exam Narrative: GENERAL: [36] year old patient appears older than stated age. Well-developed patient, in mild distress. HEAD: Atraumatic. Normocephalic. EYES: Pupils equal round and reactive. Extraocular motions intact. No scleral icterus. No injection or drainage. ENT: Nose without bleeding, purulent drainage. Throat without erythema, tonsillar hypertrophy or exudate. Airway patent. NECK: Trachea midline. Non tender CARDIOVASCULAR: Regular rate and rhythm without murmurs, gallops, or rubs. RESPIRATORY: Clear to auscultation. Breath sounds equal bilaterally. No wheezes, rales, or rhonchi. GASTROINTESTINAL: Abdomen soft, non-tender, nondistended. Bowel sounds present in all 4 quadrants EXTREMITIES: No edema or joint tenderness. BACK: Nontender without deformity or crepitance. No flank tenderness. NEURO: AOx3. SKIN: No rash or erythema of visible areas Initial Vital Signs Initial Vital Signs: Vital Signs Temperature 98.0 F 11/11/22 23:24 Pulse Rate 106 H 11/11/22 23:24 Respiratory Rate 22 11/11/22 23:24 Blood Pressure 170/98 H 11/11/22 23:24 Pulse Oximetry 98 11/11/22 23:24 Oxygen Delivery Method Room Air 11/11/22 23:24 Course Orders Ordered: ED Orders 11/11/22 23:25 Complete Blood Count AUTO DIFF Stat Ethanol (ETOH) Stat 11/11/22 23:26 Comprehensive Metabolic Panel Stat Lipase Stat 11/12/22 00:11 COVID19 -Nasal RAPID Stat Vital Signs Vital signs: Vital Signs - 8 hr 11/11/22 23:24 Temperature 98.0 F Pulse Rate 106 H Respiratory Rate 22 Blood Pressure 170/98 H Pulse Oximetry 98 Oxygen Delivery Method Room Air MDM - Abdominal Pain Lab Data 11/12/22 00:17 11/12/22 00:17 Labs: Lab Results 11/12/22 11/12/22 11/12/22 Range/Units 00:11 00:17 00:17 WBC 12.3 H (4.5-11.0) X10^3/uL RBC 4.49 L (4.5-5.9) X10^6/uL Hgb 13.2 L (13.5-17.5) g/dL Hct 39.2 L (41-53) % MCV 87.4 (80-100) fL MCH 29.4 (26-34) PG MCHC 33.7 (30-36) % RDW 13.9 (11.6-14.8) % Plt Count 429 H (150-400) X10^3/uL Neut % (Auto) 60.7 (50-75) % Lymph % (Auto) 26.5 (25-40) % Mclennan % (Auto) 9.6 (3-14) % Eos % (Auto) 2.2 (2-4) % Baso % (Auto) 1.0 (0-2) % Neut # (Auto) 7500 H (1068-9851) /uL Lymph # (Auto) 3300 (2195-8939) /uL Mclennan # (Auto) 1200 H (0-900) /uL Eos # (Auto) 300 (0-450) /uL Baso # (Auto) 100 (0-100) /uL Sodium (137-145) mmol/L Potassium (3.4-5.1) mmol/L Chloride (98-107) mmol/L Carbon Dioxide (22-32) mmol/L BUN (9-20) mg/dL Creatinine (0.66-1.25) mg/dL Estimated GFR (>60) mL/min BUN/Creatinine Ratio (6-22) Glucose (70-100) mg/dL Calcium (8.4-10.2) mg/dL Total Bilirubin (0.2-1.3) mg/dL AST (17-59) IU/L ALT (<50) IU/L Alkaline Phosphatase (38-126) U/L Total Protein (6.3-8.2) g/dL Albumin (3.5-5.0) g/dL Globulin (1.7-4.1) g/dL Albumin/Globulin Ratio (1.0-2.8) Lipase (23-300) U/L Ethyl Alcohol < 10 ( - 10) mg/dL SARS-CoV-2 (PCR) Negative (Negative) 11/12/22 Range/Units 00:17 WBC (4.5-11.0) X10^3/uL RBC (4.5-5.9) X10^6/uL Hgb (13.5-17.5) g/dL Hct (41-53) % MCV (80-100) fL MCH (26-34) PG MCHC (30-36) % RDW (11.6-14.8) % Plt Count (150-400) X10^3/uL Neut % (Auto) (50-75) % Lymph % (Auto) (25-40) % Mclennan % (Auto) (3-14) % Eos % (Auto) (2-4) % Baso % (Auto) (0-2) % Neut # (Auto) (7872-4316) /uL Lymph # (Auto) (9760-6465) /uL Mclennan # (Auto) (0-900) /uL Eos # (Auto) (0-450) /uL Baso # (Auto) (0-100) /uL Sodium 141 (137-145) mmol/L Potassium 3.7 (3.4-5.1) mmol/L Chloride 104 (98-107) mmol/L Carbon Dioxide 30 (22-32) mmol/L BUN 17 (9-20) mg/dL Creatinine 0.85 (0.66-1.25) mg/dL Estimated GFR > 60 (>60) mL/min BUN/Creatinine Ratio 20.0 (6-22) Glucose 103 H (70-100) mg/dL Calcium 8.5 (8.4-10.2) mg/dL Total Bilirubin 0.4 (0.2-1.3) mg/dL AST 20 (17-59) IU/L ALT 21 (<50) IU/L Alkaline Phosphatase 85 (38-126) U/L Total Protein 7.6 (6.3-8.2) g/dL Albumin 4.0 (3.5-5.0) g/dL Globulin 3.6 (1.7-4.1) g/dL Albumin/Globulin Ratio 1.1 (1.0-2.8) Lipase 50 (23-300) U/L Ethyl Alcohol ( - 10) mg/dL SARS-CoV-2 (PCR) (Negative) [facility] Narrative Medical decision making narrative: [36] year old patient presents with abdominal pain that has been present for many months in the absence of vomiting, fever or other concerning findings Multiple etiologies for patient's symptoms considered including, but not limited to: [Bowel obstruction, methamphetamine use versus other] Prior Charts reviewed in our EMR Primary Historian: patient Labs reviewed and interpreted by myself: Slight leukocytosis without any left shift no anemia, electrolytes and renal function at baseline Imaging reviewed: Patient left before imaging obtained Patient with full capacity to make his own decisions decides he would rather not wait for social work to come in at noon. He understands that we are happy to keep him until they arrive and that if he returns later in the day that there likely could be an extensive wait, and a new bill 4 another ER visit Patient's symptoms improved over duration of stay with above-stated therapies. Findings and discharge diagnosis discussed with patient/family followed by verbalization of understanding Return precautions discussed with patient/family whom verbalize understanding of diagnosis and plan Discharge Plan Departure Patient Disposition: Left Against Medical Advice Clinical Impression: Patient left before treatment completed Prescriptions: No Action omeprazole magnesium [Prilosec OTC] 20 mg tablet,delayed release (DR/EC) 20 mg PO DAILY Qty: 60 0RF Stand Alone Forms: Against Medical Advice
[2022-11-11 23:24] VITALS: BP 170/98; PULSE 106; RESP 22; TEMP 36.7; O2SAT 98; BMI 24.4
[2022-11-12 00:33] LABS: Add Manual Diff / Slide Review NO; Basophils Absolute Auto 100 /uL (0-100); Eosinophils Absolute Auto 300 /uL (0-450); Eosinophils Percent Auto 2.2 % (2-4); Hematocrit 39.2 % (41-53); Hemoglobin 13.2 g/dL (13.5-17.5); Lymphocytes Absolute Auto 3300 /uL (1100-4500); Lymphocytes Percent Auto 26.5 % (25-40); Mean Corpuscular HGB Conc 33.7 % (30-36); Mean Corpuscular Hemoglobin 29.4 PG (26-34); Mean Corpuscular Volume 87.4 fL (80-100); Monocytes Absolute Auto 1200 /uL (0-900); Monocytes Percent Auto 9.6 % (3-14); Neutrophils Absolute Auto 7500 /uL (1500-7000); Neutrophils Percent Auto 60.7 % (50-75); Platelet Count 429 X10^3/uL (150-400); Red Blood Cell Count 4.49 X10^6/uL (4.5-5.9); Red Cell Distribution Width 13.9 % (11.6-14.8); White Blood Cell Count 12.3 X10^3/uL (4.5-11.0)
[2022-11-12 00:37] LABS: Ethanol (ETOH) < 10 mg/dL
[2022-11-12 00:39] LABS: Alanine Aminotransferase 21 IU/L (<50); Albumin Globulin Ratio 1.1 (1.0-2.8); Alkaline Phosphatase 85 U/L (38-126); Aspartate Aminotransferase 20 IU/L (17-59); Bilirubin Total 0.4 mg/dL (0.2-1.3); Blood Urea Nitrogen 17 mg/dL (9-20); Calcium 8.5 mg/dL (8.4-10.2); Carbon Dioxide 30 mmol/L (22-32); Chloride 104 mmol/L (98-107); Estimated Glomerular Filt Rate > 60 mL/min (>60); Globulin 3.6 g/dL (1.7-4.1); Glucose 103 mg/dL (70-100); HEMOLYSIS < 15 (0-50); Lipase 50 U/L (23-300); Potassium 3.7 mmol/L (3.4-5.1); Sodium 141 mmol/L (137-145); Total Protein 7.6 g/dL (6.3-8.2)
[2022-11-12 02:28] LABS: COVID19 -Nasal RAPID Negative (Negative)
== END 2022-11-12 01:14 | disposition left against medical advice (07) ==
PROVIDERS: Emergency Provider Emergency Medicine
DX: R10.9 Unspecified abdominal pain (principal); D72.829 Elevated white blood cell count, unspecified; Z20.822 Contact with and (suspected) exposure to COVID-19
CPT/HCPCS: 80053; 80320; 83690; 85025; 87635; 99283; C9803

== ENCOUNTER 2022-11-12 12:38 | Emergency (ER) | payer OTHER, MEDICAID, SELFPAY ==
--- NOTE | 2022-11-12 13:31 | PC.NURSE ---
called patient various times . no answer.
--- NOTE | 2022-11-12 13:58 | PC.NURSE ---
called patient again. registration reports he left some time ago.
== END 2022-11-12 13:59 | disposition left against medical advice (07) ==
PROVIDERS: Emergency Provider Emergency Medicine

== ENCOUNTER 2025-01-06 01:58 | Emergency (ER) | payer OTHER, SELFPAY ==
[2025-01-06 02:01] VITALS: BP 140/76; PULSE 80; RESP 18; O2SAT 98; BMI 29.8
--- NOTE | 2025-01-06 02:13 | ED.MEDCLEAR ---
HPI - Medical Clearance General Chief complaint: Medical Clearance Stated complaint: fit for skilled nursing Time Seen by Provider: 01/06/25 02:01 Source: patient Mode of arrival: Ambulatory History of Present Illness HPI Narrative: 39-year-old gentleman history of polysubstance abuse anxiety depression was about to be arrested by police as he has a warrant when he started to develop chest discomfort that he is describes as warmth in his chest and feeling like he is being tortured his how he describes his pain at this moment. It is constant but he is not short of breath with this. Other than what is stated 14 point review of system is negative. Related Information Previous Rx's Medication Instructions Recorded omeprazole magnesium 20 mg 20 mg PO DAILY #60 tabs 11/14/21 tablet,delayed release (Prilosec OTC) Allergies Allergy/AdvReac Type Severity Reaction Status Date / Time No Known Drug Allergies Allergy Verified 11/05/22 10:36 Review of Systems Review of Systems ROS Unobtainable: All systems reviewed & are unremarkable except as noted in HPI and below Patient History Medical History Anxiety Medication refill Opiate dependence, continuous (01/12/17) Rash of genitalia Surgical History No significant past surgical history tobacco type: cigarettes alcohol intake frequency: 3 or more drinks per day Alcohol type: hard liquor Exam Narrative Exam Narrative: GENERAL: [39] year old patient appears stated age. Well-developed patient, in mild distress. HEAD: Atraumatic. Normocephalic. EYES: Pupils equal round and reactive. Extraocular motions intact. No scleral icterus. No injection or drainage. NECK: Trachea midline. Non tender CARDIOVASCULAR: Regular rate and rhythm without murmurs, gallops, or rubs. RESPIRATORY: Clear to auscultation. Breath sounds equal bilaterally. No wheezes, rales, or rhonchi. GASTROINTESTINAL: Abdomen soft, non-tender, nondistended. EXTREMITIES: No edema or joint tenderness. BACK: Nontender without deformity or crepitance. No flank tenderness. NEURO: AOx3. SKIN: No rash or erythema of visible areas Initial Vital Signs Initial Vital Signs: Vital Signs Pulse Rate 80 01/06/25 02:01 Respiratory Rate 18 01/06/25 02:01 Blood Pressure 140/76 01/06/25 02:01 Pulse Oximetry 98 01/06/25 02:01 Oxygen Delivery Method Room Air 01/06/25 02:01 Scores HEART Score Heart Score history: Slightly Suspicious Heart Score EKG: Normal Heart Score Age: < 45 years old Heart Score risk factors: No known risk factors Heart Score troponin: < or = to normal limit Heart Score Total: 0 MDM - Medical Clearance Lab Data 01/06/25 02:43 01/06/25 02:43 Labs: Lab Results 01/06/25 Range/Units 02:43 WBC 8.4 (4.5-11.0) X10^3/uL RBC 4.70 (4.5-5.9) X10^6/uL Hgb 14.3 (13.5-17.5) g/dL Hct 41.3 (41-53) % MCV 87.9 (80-100) fL MCH 30.4 (26-34) PG MCHC 34.5 (30-36) % RDW 14.4 (11.6-14.8) % Plt Count 363 (150-400) X10^3/uL Neut % (Auto) 41.3 L (50-75) % Lymph % (Auto) 46.1 H (25-40) % [place] % (Auto) 10.1 (3-14) % Eos % (Auto) 1.4 L (2-4) % Baso % (Auto) 1.1 (0-2) % Neut # (Auto) 3500 (6189-6885) /uL Lymph # (Auto) 3900 (8541-2668) /uL [place] # (Auto) 800 (0-900) /uL Eos # (Auto) 100 (0-450) /uL Baso # (Auto) 100 (0-100) /uL Sodium 139 (137-145) mmol/L Potassium 3.6 (3.4-5.1) mmol/L Chloride 108 H (98-107) mmol/L Carbon Dioxide 20 L (22-32) mmol/L BUN 14 (9-20) mg/dL Creatinine 0.83 (0.66-1.25) mg/dL Estimated GFR > 60 (>60) mL/min BUN/Creatinine Ratio 16.9 (6-22) Glucose 129 H (70-99) mg/dL Calcium 9.2 (8.4-10.2) mg/dL Total Bilirubin 0.6 (0.2-1.3) mg/dL AST 22 (17-59) IU/L ALT 23 (<50) IU/L Alkaline Phosphatase 55 (38-126) U/L Troponin I < 0.012 (0.01-0.034) ng/mL Total Protein 7.1 (6.3-8.2) g/dL Albumin 4.2 (3.5-5.0) g/dL Globulin 2.9 (1.7-4.1) g/dL Albumin/Globulin Ratio 1.4 (1.0-2.8) ECG Data Interpretation: NSR HR 80 CO 152 QRS [address]-t wave change Unchanged from 11/15/21 MDM Narrative Medical decision making narrative: All lab work vital signs nurse triage note medication list and previous ER visits all reviewed. Patient has a heart score of 0. Differential diagnosis includes STEMI, NSTEMI, unstable angina, PE, anxiety, GERD, skilled nursing avoidance. Discharge Plan Departure Patient Disposition: Home Clinical Impression: Chest pain Qualifiers: Chest pain type: chest pain on breathing Qualified Code(s): R07.1 - Chest pain on breathing Activity Restrictions/Additional Instructions: Return with new or worsening symptoms. Follow up with PCP next week for follow up care. Prescriptions: No Action omeprazole magnesium [Prilosec OTC] 20 mg tablet,delayed release (DR/EC) 20 mg PO DAILY Qty: 60 0RF Referrals: Miscellaneous,Doctor, MD [Primary Care Provider] - Stand Alone Forms: Patient Portal/API/Survey
--- NOTE | 2025-01-06 02:36 | DI.RAD.S_ITS ---
PROCEDURE: XR CHEST 1V INDICATIONS: chest pain TECHNIQUE: One view of the chest was acquired. COMPARISON: [facility], CR, XR CHEST 1V, 11/15/2021, 22:34. FINDINGS: Surgical changes and devices: None. Lungs and pleura: Lungs are clear. No pleural effusions or pneumothorax. Mediastinum: Mediastinal contours appear normal. Heart size is normal. Bones and chest wall: No suspicious bony lesions. Overlying soft tissues appear unremarkable. IMPRESSION: No acute cardiopulmonary abnormality is seen. Dictated by: Didier Reyes M.D. on 01/06/2025 at 8:28 Approved by: Didier Reyes M.D. on 01/06/2025 at 8:28
--- NOTE | 2025-01-06 02:36 | EKG_ITS ---
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
[2025-01-06 02:59] LABS: Add Manual Diff / Slide Review NO; Basophils Absolute Auto 100 /uL (0-100); Basophils Percent Auto 1.1 % (0-2); Eosinophils Absolute Auto 100 /uL (0-450); Eosinophils Percent Auto 1.4 % (2-4); Hematocrit 41.3 % (41-53); Hemoglobin 14.3 g/dL (13.5-17.5); Lymphocytes Absolute Auto 3900 /uL (1100-4500); Lymphocytes Percent Auto 46.1 % (25-40); Mean Corpuscular HGB Conc 34.5 % (30-36); Mean Corpuscular Hemoglobin 30.4 PG (26-34); Mean Corpuscular Volume 87.9 fL (80-100); Monocytes Absolute Auto 800 /uL (0-900); Monocytes Percent Auto 10.1 % (3-14); Neutrophils Absolute Auto 3500 /uL (1500-7000); Neutrophils Percent Auto 41.3 % (50-75); Platelet Count 363 X10^3/uL (150-400); Red Cell Distribution Width 14.4 % (11.6-14.8); White Blood Cell Count 8.4 X10^3/uL (4.5-11.0)
[2025-01-06 03:06] LABS: Alanine Aminotransferase 23 IU/L (<50); Albumin 4.2 g/dL (3.5-5.0); Albumin Globulin Ratio 1.4 (1.0-2.8); Alkaline Phosphatase 55 U/L (38-126); Aspartate Aminotransferase 22 IU/L (17-59); BUN Creatinine Ratio 16.9 (6-22); Bilirubin Total 0.6 mg/dL (0.2-1.3); Blood Urea Nitrogen 14 mg/dL (9-20); Calcium 9.2 mg/dL (8.4-10.2); Carbon Dioxide 20 mmol/L (22-32); Chloride 108 mmol/L (98-107); Estimated Glomerular Filt Rate > 60 mL/min (>60); Globulin 2.9 g/dL (1.7-4.1); Glucose 129 mg/dL (70-99); HEMOLYSIS 16 (0-50); Potassium 3.6 mmol/L (3.4-5.1); Sodium 139 mmol/L (137-145); Total Protein 7.1 g/dL (6.3-8.2)
[2025-01-06 03:17] LABS: Troponin I < 0.012 ng/mL (0.01-0.034)
--- NOTE | 2025-01-06 03:28 | PC.NURSE ---
pt given 1-0.1mg clonidine and buspar 1 tablet from his medications with verbal order from Dr Burks and with permission of [employer]
== END 2025-01-06 03:32 | disposition home or self-care (01) ==
PROVIDERS: Emergency Provider Family Medicine
DX: R07.1 Chest pain on breathing (principal)
CPT/HCPCS: 36415; 71045; 80053; 84484; 85025; 93005; 93010; 99281; 99284

== ENCOUNTER 2025-02-09 07:00 | Emergency (ER) | payer OTHER, SELFPAY ==
[2025-02-09] VITALS (8 sets, daily range): BP systolic 115–163; BP diastolic 71–93; PULSE 61–112; RESP 16–27; TEMP 37.1; O2SAT 94–100; BMI 27.1
--- NOTE | 2025-02-09 07:16 | EKG_ITS ---
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
[2025-02-09 07:55] LABS: Add Manual Diff / Slide Review NO; Basophils Absolute Auto 0 /uL (0-100); Basophils Percent Auto 0.3 % (0-2); Eosinophils Absolute Auto 0 /uL (0-450); Eosinophils Percent Auto 0.2 % (2-4); Hemoglobin 16.6 g/dL (13.5-17.5); Lymphocytes Absolute Auto 2200 /uL (1100-4500); Lymphocytes Percent Auto 19.9 % (25-40); Mean Corpuscular Hemoglobin 29.9 PG (26-34); Mean Corpuscular Volume 87.9 fL (80-100); Monocytes Absolute Auto 700 /uL (0-900); Monocytes Percent Auto 6.2 % (3-14); Neutrophils Absolute Auto 8100 /uL (1500-7000); Neutrophils Percent Auto 73.4 % (50-75); Platelet Count 372 X10^3/uL (150-400); Red Blood Cell Count 5.57 X10^6/uL (4.5-5.9); Red Cell Distribution Width 14.1 % (11.6-14.8); White Blood Cell Count 11.1 X10^3/uL (4.5-11.0)
--- NOTE | 2025-02-09 07:58 | ED_ITS ---
HPI - Abdominal Pain General Chief Complaint: Abdominal Pain Stated Complaint: Stomach pain and dizzyness off and on x3wks Time Seen by Provider: 02/09/25 07:24 Source: patient Mode of arrival: Ambulatory History of Present Illness HPI narrative: 39-year-old gentleman history of polysubstance abuse anxiety depression presents today with Abdominal pain described as cramping and intermittent that has been ongoing for the past 10 years along with nausea. Pt admits to recent drinking whiskey, smoking heavily, and recent use of fentanyl. Patient denies IV drug use, rash, chest pain, shortness of breath, vomiting, diarrhea, cough, blood in the stool, or urine, fever, or chills, testicular pain, or penile discharge. Other than what is stated 14 point review of system is negative Related Data Previous Rx's ?Medication ?Instructions ?Recorded omeprazole magnesium 20 mg 20 mg PO DAILY #60 tabs 08/26 tablet,delayed release (Prilosec OTC) Allergies Allergy/AdvReac Type Severity Reaction Status Date / Time No Known Drug Allergies Allergy Verified 11/05/22 10:36 Review of Systems Review of Systems ROS Unobtainable: All systems reviewed & are unremarkable except as noted in HPI and below Patient History Medical History Anxiety Medication refill Opiate dependence, continuous (01/12/17) Rash of genitalia Surgical History No significant past surgical history Social History Smoking Status: Current every day smoker Smoking Status: Current every day smoker tobacco type: cigarettes and smokeless tobacco alcohol intake frequency: 3 or more drinks per day Alcohol type: hard liquor Exam Narrative Exam Narrative: GENERAL: [39] year old patient appears stated age. Well-developed patient, in mild distress. HEAD: Atraumatic. Normocephalic. EYES: Pupils equal round and reactive. Extraocular motions intact. No scleral icterus. No injection or drainage. ENT: Nose without bleeding, purulent drainage. Throat without erythema, tonsillar hypertrophy or exudate. Airway patent. NECK: Trachea midline. Non tender CARDIOVASCULAR: Regular rate and rhythm without murmurs, gallops, or rubs. RESPIRATORY: Clear to auscultation. Breath sounds equal bilaterally. No wheezes, rales, or rhonchi. GASTROINTESTINAL: Abdomen soft, epigastric TTP, nondistended. EXTREMITIES: No edema or joint tenderness. BACK: Nontender without deformity or crepitance. No flank tenderness. NEURO: AOx3. SKIN: No rash or erythema of visible areas Initial Vital Signs Initial Vital Signs: Vital Signs Temperature 98.7 F 02/09/25 07:44 Pulse Rate 105 H 02/09/25 07:44 Respiratory Rate 21 02/09/25 07:44 Blood Pressure 153/76 H 02/09/25 07:44 Pulse Oximetry 100 02/09/25 07:44 Oxygen Delivery Method Room Air 02/09/25 07:44 Course Orders Ordered: ED Orders 02/09/25 07:16 EKG-12 Lead Stat 02/09/25 07:40 Complete Blood Count AUTO DIFF Stat Comprehensive Metabolic Panel Stat Lipase Stat 02/09/25 07:49 Consult to ELECTROGALVANIZING MACHINE OPERATOR - [employer]per[employer] And Upholstery Estimator Stat 02/09/25 07:58 CT abdomen pelvis w con Stat 02/09/25 10:03 Urine Drug Screen, Rapid Stat Ondansetron HCl (Ondansetron 4 Mg/2 Ml Inj) 4 mg IV NOW PRN PRN Reason: Nausea And Vomiting Ondansetron HCl (Ondansetron 4 Mg Odt) 4 mg PO NOW PRN PRN Reason: Nausea And Vomiting Discontinued Medications Diphenhydramine HCl (Diphenhydramine 50 Mg/Ml Vial) 50 mg IV NOW ONE Stop: 02/09/25 07:59 Last Admin: 02/09/25 08:43 Dose: 50 mg Documented By: LM Droperidol (Droperidol 2.5 Mg/Ml Vial) 2.5 mg IV NOW ONE Stop: 02/09/25 07:59 Last Admin: 02/09/25 08:47 Dose: 2.5 mg Documented By: LM Lactated Ringer's (Lactated Ringers) 1,000 mls @ 1,000 mls/hr IV BOLUS ONE Stop: 02/09/25 08:57 Last Infusion: 02/09/25 09:57 Dose: Infused Documented By: Admin: 02/09/25 08:47 Dose: 1,000 mls/hr Documented By: LM Vital Signs Vital signs: Vital Signs - 8 hr 02/09/25 07:44 Temperature 98.7 F Pulse Rate 105 H Respiratory Rate 21 Blood Pressure 153/76 H Pulse Oximetry 100 Oxygen Delivery Method Room Air MDM - Abdominal Pain Lab Data 02/09/25 07:40 02/09/25 07:40 Labs: Lab Results 02/09/25 Range/Units 07:40 WBC 11.1 H (4.5-11.0) X10^3/uL RBC 5.57 (4.5-5.9) X10^6/uL Hgb 16.6 (13.5-17.5) g/dL Hct 49.0 (41-53) % MCV 87.9 (80-100) fL MCH 29.9 (26-34) PG MCHC 34.0 (30-36) % RDW 14.1 (11.6-14.8) % Plt Count 372 (150-400) X10^3/uL Neut % (Auto) 73.4 (50-75) % Lymph % (Auto) 19.9 L (25-40) % [place] % (Auto) 6.2 (3-14) % Eos % (Auto) 0.2 L (2-4) % Baso % (Auto) 0.3 (0-2) % Neut # (Auto) 8100 H (3185-2088) /uL Lymph # (Auto) 2200 (5699-2480) /uL [place] # (Auto) 700 (0-900) /uL Eos # (Auto) 0 (0-450) /uL Baso # (Auto) 0 (0-100) /uL Sodium 143 (137-145) mmol/L Potassium 4.2 (3.4-5.1) mmol/L Chloride 107 (98-107) mmol/L Carbon Dioxide 20 L (22-32) mmol/L BUN 6 L (9-20) mg/dL Creatinine 0.76 (0.66-1.25) mg/dL Estimated GFR > 60 (>60) mL/min BUN/Creatinine Ratio 7.9 (6-22) Glucose 113 H (70-99) mg/dL Calcium 10.2 (8.4-10.2) mg/dL Total Bilirubin 1.2 (0.2-1.3) mg/dL AST 22 (17-59) IU/L ALT 20 (<50) IU/L Alkaline Phosphatase 81 (38-126) U/L Total Protein 9.0 H (6.3-8.2) g/dL Albumin 5.1 H (3.5-5.0) g/dL Globulin 3.9 (1.7-4.1) g/dL Albumin/Globulin Ratio 1.3 (1.0-2.8) Lipase 79 (23-300) U/L Point of care testing: Urine Dip Bedside Urine Glucose Negative Bedside Urine Bilirubin - Negative Bedside Urine Ketone - Negative Urine Specific [place] 1.000 Bedside Urine Occult Blood - Negative Bedside Urine pH 8.0 Bedside Urine Protein - Negative Bedside Urine Urobilinogen - Negative Bedside Urine Nitrite - Negative Bedside Urine Leukocytes - Negative Esterase Imaging Data CT scan - abdomen/pelvis: Radiologist's Impression: [address] [address] [address] Scan Report Signed Patient: Wale Todd MR#: [id number] : 1985 Acct:[id number] Age/Sex: 39 / M Date of Service: 02/09/25 Loc: ED Accession Number: [id number] Procedure: CT abdomen pelvis w con Ordering Provider: Geraldo Burks D.O. PROCEDURE: CT ABDOMEN PELVIS W CON INDICATIONS: pain TECHNIQUE: After the administration of intravenous contrast, axial sections acquired from the lung bases to the pubic symphysis. Coronal and sagittal reformats were performed. For radiation dose reduction, the following was used: automated exposure control, adjustment of mA and/or kV according to patient size. COMPARISON: [facility], CT, CT ABDOMEN PELVIS WITH CONTRAST, 11/15/2023, 17:35. FINDINGS: Image quality: Diagnostic. Lower Chest: No significant findings. ABDOMEN: Liver: No solid mass. Gallbladder: No radiopaque gallstones or wall thickening. Biliary ducts: No biliary dilation. Pancreas: No ductal dilation. Spleen: Size is within normal limits. Adrenal Glands: No adrenal nodules. Kidneys and Ureters: No hydronephrosis. Increased size of partially exophytic heterogeneous partially cystic mass with right mid kidney measuring 2.2 x 2.0 cm. Stomach and Bowel: Normal colonic caliber, without significant wall thickening. Normal appendix. Peritoneum: No abnormal intraperitoneal fluid. No free air. Ventral Wall: No significant ventral hernia. Abdominal Nodes: No retroperitoneal or mesenteric adenopathy by size criteria. Vessels: Aorta and inferior vena cava are normal in size. PELVIS: Pelvic Organs: Unremarkable. Bladder: No bladder wall thickening, accounting for underdistention. Pelvic Nodes: No enlarged lymph nodes. Miscellaneous: No inguinal hernias are seen. Bones: No aggressive osseous abnormality. Degenerative changes at L5-S1. IMPRESSION: 1. Heterogeneous partially exophytic mass in the right kidney measuring 2.2 cm is increased in size compared to prior and highly concerning for renal cell carcinoma until proven otherwise. No invasion into the renal collecting system or renal vein are seen. 2. No evidence of metastatic disease. 3. Otherwise, no acute findings within the abdomen or pelvis. Dictated by: Andrews Mak M.D. on 02/09/2025 at 8:55 Approved by: Andrews Mak M.D. on 02/09/2025 at 9:01 MDM Narrative Medical decision making narrative: All lab work, vital signs, nurse triage note, medication list, previous ER visits and all imaging studies all reviewed. heterogeneous partially exophytic mass in the right kidney measuring 2.2 cm increased in size compared to prior and highly concerning for renal cell carcinoma until proven otherwise no evidence of metastatic disease. Case discussed with Dr.Hagedorn Brandon AMBROSIO electronic system engineer who recommended patient follow up with Dr. Arredondo who specializes in this area at [facility]. differential diagnosis includes polysubstance abuse, pancreatitis, diverticulitis, ulcerative colitis, Crohn's disease. Discharge Plan Departure Patient Disposition: Home Clinical Impression: Kidney mass Instructions: DI for Abdominal Pain-Adult Activity Restrictions/Additional Instructions: Return with new or worsening symptoms. Please follow up with Dr. Arredondo at [facility]. [phone] call on Tuesday for appointment Prescriptions: No Action omeprazole magnesium [Prilosec OTC] 20 mg tablet,delayed release (DR/EC) 20 mg PO DAILY Qty: 60 0RF Referrals: Miscellaneous,DoctorMD [Primary Care Provider, Medical] Stand Alone Forms: Patient Portal/API
[2025-02-09 08:04] LABS: Alanine Aminotransferase 20 IU/L (<50); Albumin 5.1 g/dL (3.5-5.0); Albumin Globulin Ratio 1.3 (1.0-2.8); Alkaline Phosphatase 81 U/L (38-126); Aspartate Aminotransferase 22 IU/L (17-59); BUN Creatinine Ratio 7.9 (6-22); Bilirubin Total 1.2 mg/dL (0.2-1.3); Blood Urea Nitrogen 6 mg/dL (9-20); Calcium 10.2 mg/dL (8.4-10.2); Carbon Dioxide 20 mmol/L (22-32); Chloride 107 mmol/L (98-107); Estimated Glomerular Filt Rate > 60 mL/min (>60); Globulin 3.9 g/dL (1.7-4.1); Glucose 113 mg/dL (70-99); HEMOLYSIS 22 (0-50); Lipase 79 U/L (23-300); Potassium 4.2 mmol/L (3.4-5.1); Sodium 143 mmol/L (137-145)
[2025-02-09] MEDS: diphenhydrAMINE 50 MG/ML VIAL IV (08:43)
[2025-02-09] MEDS: droPERidol 2.5 MG/ML VIAL IV (08:47)
[2025-02-09] MEDS: LACTATED RINGERS 1,000 ML 1000 ML IV (08:47)
[2025-02-09 10:22] LABS: UR Morphine/Opiate cutoff 300 Negative (Negative); Ur Creatinine Normal (Normal); Ur Specific Gravity Normal (Normal); Urine Amphetamines Negative (Negative); Urine Barbiturates Negative (Negative); Urine Benzodiazepines Negative (Negative); Urine Cocaine Negative (Negative); Urine MDMA Negative (Negative); Urine Methadone Negative (Negative); Urine Methamphetamines Negative (Negative); Urine Oxycodone Negative (Negative); Urine Phencyclidine Negative (Negative); Urine Tetrahydrocannabinol Negative (Negative); Urine Tricyclic Antidepressant Negative (Negative); Urine pH Normal (Normal)
--- NOTE | 2025-02-09 10:33 | PC.NURSE ---
This RN went into patient room for discharge and patient had ripped out his IV. When asked why patient states I thought I was done and no one told me not to. This RN informed patient to not do that in the future and educated patient for signs and symptoms of infection. Patient education performed. Provider made aware.
== END 2025-02-09 10:30 | disposition home or self-care (01) ==
PROVIDERS: Emergency Provider Family Medicine
DX: N28.89 Other specified disorders of kidney and ureter (principal); R11.0 Nausea; R42 Dizziness and giddiness
CPT/HCPCS: 74177; 80053; 80305; 81003; 83690; 85025; 93005; 96361; 96374; 96375; 99284; J1200; J1790; Q9967

== ENCOUNTER 2025-03-24 15:39 | Emergency (ER) | payer OTHER, SELFPAY ==
[2025-03-24] VITALS (9 sets, daily range): BP systolic 119–148; BP diastolic 73–86; PULSE 68–90; RESP 16–26; TEMP 36.9; O2SAT 94–98; BMI 27.1
--- NOTE | 2025-03-24 15:59 | EKG_ITS ---
[address] [address] Test Date: 2025-03-24 Pat Name: Wale Todd Department: [facility] Room: Gender: Male Remote Sensing Analyst: SHWETA : 1985 Requested By: Order Number: [id number] Reading MD: Gallo Lee Measurements Intervals [place] Rate: 78 P: 56 [place]: 150 QRS: 21 QRSD: 92 T: 47 QT: 376 QTc: 428 Interpretive Statements Normal sinus rhythm Electronically Signed On 03-25-2025 8:43:02 PDT by Gallo Lee
[2025-03-24] MEDS: ONDANSETRON 4 MG/2 ML INJ IV (16:40)
[2025-03-24 16:41] LABS: Add Manual Diff / Slide Review NO; Hematocrit 44.8 % (41-53); Hemoglobin 15.4 g/dL (13.5-17.5); Lymphocytes Absolute Auto 2300 /uL (1100-4500); Mean Corpuscular HGB Conc 34.4 % (30-36); Mean Corpuscular Hemoglobin 30.2 PG (26-34); Mean Corpuscular Volume 87.9 fL (80-100); Platelet Count 365 X10^3/uL (150-400)
[2025-03-24 16:52] LABS: Alanine Aminotransferase 25 IU/L (<50); Albumin 4.6 g/dL (3.5-5.0); Albumin Globulin Ratio 1.4 (1.0-2.8); Alkaline Phosphatase 66 U/L (38-126); Blood Urea Nitrogen 6 mg/dL (9-20); Calcium 9.4 mg/dL (8.4-10.2); Carbon Dioxide 22 mmol/L (22-32); Chloride 109 mmol/L (98-107); Estimated Glomerular Filt Rate > 60 mL/min (>60); Globulin 3.3 g/dL (1.7-4.1); Glucose 98 mg/dL (70-99); HEMOLYSIS < 15 (0-50); Lipase 47 U/L (23-300); Potassium 3.7 mmol/L (3.4-5.1); Sodium 142 mmol/L (137-145); Total Protein 7.9 g/dL (6.3-8.2)
--- NOTE | 2025-03-24 18:08 | ED.GENADULT ---
HPI - General Adult General Chief complaint: Abdominal Pain Stated complaint: stomach pain, dizzy Time Seen by Provider: 03/24/25 18:00 Source: patient Mode of arrival: Ambulatory History of Present Illness HPI narrative: Year old gentleman with a history of a recently diagnosed kidney mass (partially exophytic heterogeneous partially cystic mass with right mid kidney measuring 2.2 x 2.0 cm.), presents with 2 days of abdominal pain nausea, vomiting and diarrhea. He is anxious and did take BuSpar and hydroxyzine prior to arrival Related Data Previous Rx's ?Medication ?Instructions ?Recorded omeprazole magnesium 20 mg 20 mg PO DAILY #60 tabs 11/14/21 tablet,delayed release (Prilosec OTC) buprenorphine 8 mg-naloxone 2 mg 0.5 - 1 film buccal .Q8prn #60 ea 03/24/25 sublingual film (Suboxone) ondansetron 4 mg disintegrating 4 mg PO Q8H PRN nausea and 03/24/25 tablet vomiting #30 tabs Allergies Allergy/AdvReac Type Severity Reaction Status Date / Time No Known Drug Allergies Allergy Verified 11/05/22 10:36 Review of Systems Review of Systems Narrative: Pertinent positive and negative findings as per HPI Patient History Medical History Anxiety Medication refill Opiate dependence, continuous (01/12/17) Rash of genitalia Surgical History No significant past surgical history Social History Smoking Status: Current every day smoker Smoking Status: Current every day smoker tobacco type: cigarettes and smokeless tobacco alcohol intake frequency: 3 or more drinks per day Alcohol type: hard liquor Exam Initial Vital Signs Initial Vital Signs: Vital Signs Temperature 98.4 F 03/24/25 15:53 Pulse Rate 90 03/24/25 15:53 Respiratory Rate 16 03/24/25 15:53 Blood Pressure 148/74 H 03/24/25 15:53 Pulse Oximetry 98 03/24/25 15:53 Oxygen Delivery Method Room Air 03/24/25 15:53 General: Healthy appearing, in no acute distress. Able to give a complete and coherent history. Well-nourished well-developed HEENT: Moist mucous membranes, normal sclera with reactive pupils, Respiratory: Lungs are clear to auscultation, no wheezing no rales no rhonchi. Full and symmetrical air movement Cardiac: Regular rate and rhythm no murmurs Abdomen: Soft, mild midepigastric tenderness without rebound or guarding. Good bowel tones Skin: Warm and dry, no rashes Neurologic: Grossly neurologically intact with no obvious asymmetries or abnormalities Extremities: No trauma, well perfused Psych: Cooperative, appropriate insight and affect Course Orders Ordered: Discontinued Medications Buprenorphine/Naloxone (Buprenorphine/Naloxone 8mg/2mg 1 Tab) 1 tab SL NOW ONE Stop: 03/24/25 18:31 Last Admin: 03/24/25 18:37 Dose: 1 tab Documented By: TC Ondansetron HCl (Ondansetron 4 Mg/2 Ml Inj) 4 mg IV NOW PRN PRN Reason: Nausea And Vomiting Last Admin: 03/24/25 16:40 Dose: 4 mg Documented By: BRENTON Ondansetron HCl (Ondansetron 4 Mg Odt) 4 mg PO NOW PRN PRN Reason: Nausea And Vomiting Vital Signs Vital signs: Vital Signs - 8 hr 03/24/25 18:30 03/24/25 18:30 Pulse Rate 73 Blood Pressure 137/86 Pulse Oximetry 98 Medical Decision Making Lab Data 03/24/25 16:32 03/24/25 16:32 Labs: Lab Results 03/24/25 Range/Units 16:32 WBC 11.9 H (4.5-11.0) X10^3/uL RBC 5.10 (4.5-5.9) X10^6/uL Hgb 15.4 (13.5-17.5) g/dL Hct 44.8 (41-53) % MCV 87.9 (80-100) fL MCH 30.2 (26-34) PG MCHC 34.4 (30-36) % RDW 14.1 (11.6-14.8) % Plt Count 365 (150-400) X10^3/uL Neut % (Auto) 72.6 (50-75) % Lymph % (Auto) 19.5 L (25-40) % [place] % (Auto) 7.0 (3-14) % Eos % (Auto) 0.5 L (2-4) % Baso % (Auto) 0.4 (0-2) % Neut # (Auto) 8600 H (7644-7702) /uL Lymph # (Auto) 2300 (3656-1523) /uL [place] # (Auto) 800 (0-900) /uL Eos # (Auto) 100 (0-450) /uL Baso # (Auto) 100 (0-100) /uL Sodium 142 (137-145) mmol/L Potassium 3.7 (3.4-5.1) mmol/L Chloride 109 H (98-107) mmol/L Carbon Dioxide 22 (22-32) mmol/L BUN 6 L (9-20) mg/dL Creatinine 0.70 (0.66-1.25) mg/dL Estimated GFR > 60 (>60) mL/min BUN/Creatinine Ratio 8.6 (6-22) Glucose 98 (70-99) mg/dL Calcium 9.4 (8.4-10.2) mg/dL Total Bilirubin 0.8 (0.2-1.3) mg/dL AST 22 (17-59) IU/L ALT 25 (<50) IU/L Alkaline Phosphatase 66 (38-126) U/L Total Protein 7.9 (6.3-8.2) g/dL Albumin 4.6 (3.5-5.0) g/dL Globulin 3.3 (1.7-4.1) g/dL Albumin/Globulin Ratio 1.4 (1.0-2.8) Lipase 47 (23-300) U/L Urine Dip Bedside Urine Glucose Negative Bedside Urine Bilirubin - Negative Bedside Urine Ketone - Negative Urine Specific [place] 1.005 Bedside Urine Occult Blood - Negative Bedside Urine pH 6.0 Bedside Urine Protein - Negative Bedside Urine Urobilinogen - Negative Bedside Urine Nitrite - Negative Bedside Urine Leukocytes - Negative Esterase Point of care testing: Urine Dip Bedside Urine Glucose Negative Bedside Urine Bilirubin - Negative Bedside Urine Ketone - Negative Urine Specific [place] 1.005 Bedside Urine Occult Blood - Negative Bedside Urine pH 6.0 Bedside Urine Protein - Negative Bedside Urine Urobilinogen - Negative Bedside Urine Nitrite - Negative Bedside Urine Leukocytes - Negative Esterase [facility] Narrative Medical decision making narrative: 39-year-old gentleman with abdominal pain, similar complaint in early February, CT scan at that point showed a complex renal mass concern for cancer. He is scheduled for a CT biopsy at the [facility] on the of this month. Over the last 3 days he has been having nausea, abdominal pain, diarrhea. He is still passing gas. Describes the pain is uncomfortable but not severely painful. He has tried to induce emesis that has not been effective. Lab work shows unchanged CBC Chemistries are reassuring with normal renal function, normal electrolytes Notes from the along with CT scan from that time are reviewed. With shared decision-making, knowing he is having a CT-guided biopsy in 5 days, we opted to not do any additional imaging studies at this time. He clearly does not have a bowel obstruction, ureteral obstruction, renal cyst rupture, intra-abdominal infection or sepsis labs are unchanged, we discussed pain control as well as nausea medication until he has had his follow up appointments as the [facility]. In the past he has had opioid use issues and has successfully been on Suboxone in the past. We had a very yesi discussion about situations such as this being perfect point for relapse. Together we decided to try Suboxone for pain control. I am going to suggest 4-8 mg up to 3 times a day for abdominal pain. We will also give him a prescription for Zofran. Discussed the importance of MiraLax to prevent any constipation with the addition of the Suboxone. He does have a primary care physician with whom he can follow up. We will provide 3 weeks of Suboxone to allow for time with the CT biopsy, oncology follow up and schedule follow up with his primary physician. Discharge Plan Departure Patient Disposition: Home Clinical Impression: Abdominal pain Qualifiers: Abdominal location: generalized Qualified Code(s): R10.84 - Generalized abdominal pain Renal cancer Qualifiers: Laterality: right Qualified Code(s): C64.1 - Malignant neoplasm of right kidney, except renal pelvis Instructions: DI for Abdominal Pain-Adult Activity Restrictions/Additional Instructions: Thank you for coming in today I am sorry that you are having this abdominal pain and nausea. There is a possibility that it is related to a mild gastroenteritis. There was also possibility that is related to the recently diagnosed renal mass. Certainly anxiety over the upcoming biopsy and final diagnosis can contribute to nausea as well At this point there was no evidence of any infection, life-threatening abnormality, bowel obstruction or reason for hospital admission. Knowing that you are having the CT-guided biopsy on the , we decided not proceed with any additional imaging today he does not likely would not change any recommendations We talked about using Suboxone as a pain medication rather than addiction medication. Unfortunately situations such as this are very high risk for opioid use disorder relapse. For pain I typically recommend 4-8 mg of Suboxone up to 3 times a day. We will give you enough for 3 weeks to get through your CT biopsy, follow up with the oncologist and we will ask you to schedule an appointment with your primary care physician within 2-1/2 weeks. A Suboxone we will cause constipation, I would recommend taking it with MiraLax so that this is not a compounding issue. I have also given you a prescription for Zofran to help with any nausea If you find that you are getting worse or develop any new symptoms, please feel free to return to the emergency department for further evaluation. Prescriptions: New buprenorphine-naloxone [Suboxone] 8-2 mg film 0.5 - 1 film buccal .Q8prn Qty: 60 0RF ondansetron 4 mg tablet,disintegrating 4 mg PO Q8H PRN (Reason: nausea and vomiting) Qty: 30 0RF No Action omeprazole magnesium [Prilosec OTC] 20 mg tablet,delayed release (DR/EC) 20 mg PO DAILY Qty: 60 0RF Referrals: Miscellaneous,Doctor, MD [Primary Care Provider, Medical] Stand Alone Forms: Patient Portal/API
[2025-03-24] MEDS: BUPRENORPHINE/NALOXONE 8MG/2MG 1 TAB SL (18:37)
== END 2025-03-24 18:57 | disposition home or self-care (01) ==
PROVIDERS: Family Medicine; Emergency Provider Emergency Medicine
DX: R10.84 Generalized abdominal pain (principal); C64.1 Malignant neoplasm of right kidney, except renal pelvis; R11.2 Nausea with vomiting, unspecified; R19.7 Diarrhea, unspecified
CPT/HCPCS: 36415; 80053; 81003; 83690; 85025; 93005; 96374; 99284; J2405

== ENCOUNTER 2025-06-06 00:09 | Observation (INO) | payer OTHER, MEDICAID, SELFPAY ==
[2025-06-06] VITALS (8 sets, daily range): BP systolic 117–155; BP diastolic 68–85; PULSE 69–133; RESP 14–20; TEMP 36.3–36.9; O2SAT 93–98; BMI 27.1
--- NOTE | 2025-06-06 00:33 | ED_ITS ---
HPI - Abdominal Pain General Chief Complaint: Abdominal Pain Stated Complaint: Anxiety Time Seen by Provider: 06/06/25 00:21 Source: patient Mode of arrival: Ambulatory History of Present Illness HPI narrative: 39-year-old gentleman history of anxiety on BuSpar and hydroxyzine seen by myself back in February of this year abdominal pain found to have a partially exophytic heterogeneous partially cystic mass within the right mid kidney measuring 2.2 x 2.0 cm previously scheduled to have a CT-guided biopsy of the right kidney mass at [facility] on March 29 but this did not occur. However, he did eventually go last week to have a CT-guided biopsy for which he does not know the results yet. He also drinks daily and had a few drinks earlier tonight feels like he is having an anxiety attack with his abdominal pain on presentation. Patient did have croissant earlier for a meal and had a bowel movement earlier today that was normal. He denies any chest pain, shortness of breath, back pain, fever, chills, body aches, dysuria, hematuria, rectal bleeding, penile discharge, testicular pain. Nothing makes it better or worse. Other than what is stated 14 point review of system is negative. Related Data Home Medications ?Medication ?Instructions ?Recorded ?Confirmed buprenorphine 8 mg-naloxone 2 mg 1 film sublingual 3XD 06/06/25 06/06/25 sublingual film (Suboxone) buspirone 30 mg tablet 30 mg PO BID 06/06/25 quetiapine 300 mg tablet 300 mg PO ONCE PM 06/06/25 1 Previous Rx's ?Medication ?Instructions ?Recorded ondansetron 4 mg disintegrating 4 mg PO Q8H PRN nausea and 03/24/25 tablet vomiting #30 tabs hydroxyzine HCl 50 mg tablet 50 mg PO QID PRN anxiety #60 tabs 04/28/25 omeprazole magnesium 20 mg 40 mg (2 x 20 mg) PO DAILY #60 tabs 04/28/25 tablet,delayed release (Prilosec OTC) Allergies Allergy/AdvReac Type Severity Reaction Status Date / Time No Known Drug Allergies Allergy Verified 04/28/25 08:48 Review of Systems Review of Systems ROS Unobtainable: All systems reviewed & are unremarkable except as noted in HPI and below Patient History Medical History Rash of genitalia Medication refill Opiate dependence, continuous (01/12/17) Anxiety Surgical History No significant past surgical history Social History household members: family Smoking Status: Smoker, status unknown tobacco type: cigarettes and smokeless tobacco alcohol intake frequency: 3 or more drinks per day Alcohol type: hard liquor Exam Narrative Exam Narrative: GENERAL: [39] year old patient appears stated age. Well-developed patient, in mild distress. HEAD: Atraumatic. Normocephalic. EYES: Pupils equal round and reactive. Extraocular motions intact. No scleral icterus. No injection or drainage. ENT: Nose without bleeding, purulent drainage. Throat without erythema, tonsillar hypertrophy or exudate. Airway patent. NECK: Trachea midline. Non tender CARDIOVASCULAR: Regular rate and rhythm without murmurs, gallops, or rubs. RESPIRATORY: Clear to auscultation. Breath sounds equal bilaterally. No wheezes, rales, or rhonchi. GASTROINTESTINAL: Abdomen soft, non-tender, nondistended. No rebound rigidity guarding EXTREMITIES: No edema or joint tenderness. BACK: Nontender without deformity or crepitance. No flank tenderness. NEURO: AOx3. SKIN: No rash or erythema of visible areas Initial Vital Signs Initial Vital Signs: Vital Signs Temperature 98.4 F 06/06/25 00:14 Pulse Rate 133 H 06/06/25 00:14 Respiratory Rate 20 06/06/25 00:14 Blood Pressure 141/85 H 06/06/25 00:14 Pulse Oximetry 96 06/06/25 00:14 Oxygen Delivery Method Room Air 06/06/25 00:14 Course Orders Ordered: ED Orders 06/06/25 00:31 CT abdomen pelvis w con Stat 06/06/25 00:40 CRP [C-Reactive Protein Quant] Stat Complete Blood Count AUTO DIFF Stat Comprehensive Metabolic Panel Stat LDH [Lactate Dehydrogenase] Stat Lipase Stat Acetaminophen (Acetaminophen 325 Mg Tablet) 1,000 mg PO Q6H PRN PRN Reason: mild pain, headache, fever Ceftriaxone Sodium 1,000 mg/ (Sodium Chloride) 100 mls @ 200 mls/hr IV Q24H [facility] Naloxone HCl (Naloxone 0.4 Mg/Ml Vial) 0.2 mg IV Q2MIN PRN PRN Reason: Opiate Reversal Non-Formulary Medication (Buspirone) 30 mg PO BID CARIN Non-Formulary Medication (Hydroxyzine Hcl) 50 mg PO QID PRN PRN Reason: anxiety Non-Formulary Medication (Omeprazole Magnesium [Prilosec Otc]) 40 mg PO DAILY [facility] Non-Formulary Medication (Buprenorphine-Naloxone [Suboxone]) 1 film SL 3XD [facility] Ondansetron HCl (Ondansetron 4 Mg Odt) 4 mg PO Q8H PRN PRN Reason: Nausea And Vomiting Quetiapine Fumarate (Quetiapine 100 Mg Tablet) 300 mg PO ONCE PM CARIN Sodium Chloride (Sodium Chloride 0.9% Flush) 10 ml IV PRN PRN PRN Reason: Flush Sodium Chloride (Sodium Chloride 0.9% Flush) 10 ml IV BID CARIN Discontinued Medications Diphenhydramine HCl (Diphenhydramine 50 Mg/Ml Vial) 50 mg IV NOW ONE Stop: 06/06/25 00:32 Last Admin: 06/06/25 00:56 Dose: 50 mg Documented By: MILY Droperidol (Droperidol 2.5 Mg/Ml Vial) 2.5 mg IV NOW ONE Stop: 06/06/25 00:32 Last Admin: 06/06/25 00:56 Dose: 2.5 mg Documented By: MILY Lactated Ringer's (Lactated Ringers) 1,000 mls @ 1,000 mls/hr IV BOLUS ONE Stop: 06/06/25 01:30 Last Infusion: 06/06/25 02:02 Dose: Infused Documented By: Admin: 06/06/25 00:56 Dose: 1,000 mls/hr Documented By: MILY Ceftriaxone Sodium 1,000 mg/ (Sodium Chloride) 100 mls @ 200 mls/hr IV NOW ONE Stop: 06/06/25 03:07 Last Infusion: 06/06/25 04:24 Dose: Infused Documented By: Admin: 06/06/25 03:29 Dose: 200 mls/hr Documented By: MILY Ketorolac Tromethamine (Ketorolac 30 Mg/Ml Vial) 15 mg IV NOW ONE Stop: 06/06/25 00:32 Last Admin: 06/06/25 00:57 Dose: 15 mg Documented By: MILY Vital Signs Vital signs: Vital Signs - 8 hr 06/06/25 00:14 06/06/25 01:01 06/06/25 01:02 Temperature 98.4 F Pulse Rate 133 H 105 H Respiratory Rate 20 Blood Pressure 141/85 H Pulse Oximetry 96 98 96 Oxygen Delivery Method Room Air 06/06/25 01:02 06/06/25 01:30 06/06/25 01:30 Temperature Pulse Rate 92 H Respiratory Rate 16 Blood Pressure 155/84 H 137/79 Pulse Oximetry 93 Oxygen Delivery Method MDM - Abdominal Pain Lab Data 06/06/25 00:40 06/06/25 00:40 Labs: Lab Results 06/06/25 Range/Units 00:40 WBC 12.8 H (4.5-11.0) X10^3/uL RBC 4.48 L (4.5-5.9) X10^6/uL Hgb 13.1 L (13.5-17.5) g/dL Hct 38.6 L (41-53) % MCV 86.3 (80-100) fL MCH 29.3 (26-34) PG MCHC 34.0 (30-36) % RDW 14.0 (11.6-14.8) % Plt Count 399 (150-400) X10^3/uL Neut % (Auto) 79.6 H (50-75) % Lymph % (Auto) 14.4 L (25-40) % [place] % (Auto) 5.2 (3-14) % Eos % (Auto) 0.1 L (2-4) % Baso % (Auto) 0.7 (0-2) % Neut # (Auto) 79492 H (4427-4124) /uL Lymph # (Auto) 1900 (1922-1683) /uL [place] # (Auto) 700 (0-900) /uL Eos # (Auto) 0 (0-450) /uL Baso # (Auto) 100 (0-100) /uL Sodium 139 (137-145) mmol/L Potassium 3.6 (3.4-5.1) mmol/L Chloride 105 (98-107) mmol/L Carbon Dioxide 24 (22-32) mmol/L BUN 7 L (9-20) mg/dL Creatinine 0.68 (0.66-1.25) mg/dL Estimated GFR > 60 (>60) mL/min BUN/Creatinine Ratio 10.3 (6-22) Glucose 140 H (70-99) mg/dL Calcium 9.4 (8.4-10.2) mg/dL Total Bilirubin 0.4 (0.2-1.3) mg/dL AST 34 (17-59) IU/L ALT 35 (<50) IU/L Alkaline Phosphatase 68 (38-126) U/L Lactate Dehydrogenase 267 H (120-246) U/L C-Reactive Protein 2.2 H (<1.0) mg/dL Total Protein 7.7 (6.3-8.2) g/dL Albumin 4.6 (3.5-5.0) g/dL Globulin 3.1 (1.7-4.1) g/dL Albumin/Globulin Ratio 1.5 (1.0-2.8) Lipase 21 L (23-300) U/L Point of care testing: Urine Dip Bedside Urine Glucose Negative Bedside Urine Bilirubin - Negative Bedside Urine Ketone - Negative Urine Specific [place] 1.010 Bedside Urine Occult Blood - Negative Bedside Urine pH 6.5 Bedside Urine Protein - Negative Bedside Urine Urobilinogen - Negative Bedside Urine Nitrite - Negative Bedside Urine Leukocytes - Negative Esterase Imaging Data CT scan - abdomen/pelvis: Radiologist's Impression: [place] [address] CT Scan Report Signed Patient: Wale Todd MR#: [id number] : 1985 Acct:[id number] Age/Sex: 39 / M Date of Service: 06/06/25 Loc: ED Accession Number: [id number] Procedure: CT abdomen pelvis w con Ordering Provider: Geraldo Burks D.O. PROCEDURE: CT ABDOMEN PELVIS W CON INDICATIONS: abd pain /nausea TECHNIQUE: After the administration of intravenous contrast, axial sections acquired from the lung bases to the pubic symphysis. Coronal and sagittal reformats were performed. For radiation dose reduction, the following was used: automated exposure control, adjustment of mA and/or kV according to patient size. COMPARISON: [facility], CT, CT ABDOMEN PELVIS W CON, 02/09/2025, 8:12. FINDINGS: Image quality: Diagnostic. Motion artifact. Lower Chest: Small right pleural effusion. ABDOMEN: Liver: No solid mass. Gallbladder: No radiopaque gallstones or wall thickening. Biliary ducts: No biliary dilation. Pancreas: No ductal dilation. Spleen: Size is within normal limits. Adrenal Glands: No adrenal nodules. Kidneys and Ureters: Right mid kidney area of hypodensity measuring 2.4 cm, (). This is at the site of prior cystic lesion which measured 1.9 cm a on 02/09/2025. This is now ill-defined and measures 35 Hounsfield units. Stomach and Bowel: Normal colonic caliber, without significant wall thickening. The appendix is not dilated. Peritoneum: No abnormal intraperitoneal fluid. No free air. Ventral Wall: No significant ventral hernia. Abdominal Nodes: No retroperitoneal or mesenteric adenopathy by size criteria. Vessels: Aorta and inferior vena cava are normal in size. PELVIS: Pelvic Organs: Unremarkable. Bladder: No bladder wall thickening, accounting for underdistention. Pelvic Nodes: No enlarged lymph nodes. Miscellaneous: No inguinal hernias are seen. Bones: No aggressive osseous abnormality. IMPRESSION: 1. Ill-defined area of hypodensity in the mid right kidney. This is at the site of prior small cystic lesion. This could represent cyst rupture. Renal infarct or pyelonephritis should also be considered. 2. Small right pleural effusion. 3. Normal appendix. No small bowel obstruction. MDM Narrative Medical decision making narrative: All lab work, vital signs, nurse triage note, medication list, previous ER visits, and all imaging studies reviewed. Patient given fluids, Toradol, Benadryl, droperidol and rocephin. Cultures obtained WBC 12.8 hemoglobin 13.1 platelet 399 sodium 139 potassium 3.6 chloride 105 bicarb 24 BUN 7 creatinine 0.68 glucose 140 lipase 21. Urine normal neg leuk, neg nitrite, neg blood neg pyuria. Differential diagnosis constipation, diverticulitis, pancreatitis, anxiety. CT scan showed ill-defined area of hypodensity in the mid right kidney. This is the site of prior small cystic lesion. This could represent Cyst rupture, renal infarct or pyelonephritis. Small right pleural effusion. Normal appendix. No small bowel obstruction. Case discussed with surgeon pm ca;; who felt this was not acute in did not need any acute intervention at this time. Case also d/w IR MD Serrano at who performed the cryoablation on May [address] scan and stated he can see why the radiologist could be concerned it may be a renal infarct if Gerald AMBROSIO did not know patient had a cryoabalation recently but no concerns from for renal infarct. He has a o/p MRA appt scheduled for Jul 19 2025 with OSIEL AMBROSIO per . Case d/w Bonnie AMBROSIO who has graciously accepted the patient for inpatient admission. Discharge Plan Departure Patient Disposition: Admitted as Observation Clinical Impression: Acute upper abdominal pain Nausea & vomiting Qualifiers: Vomiting type: unspecified Qualified Code(s): R11.2 - Nausea with vomiting, unspecified Admit Date/Time: 06/06/25 03:05 Admit Provider: Jayden Lim
[2025-06-06 00:51] LABS: Add Manual Diff / Slide Review NO; Hematocrit 38.6 % (41-53); Hemoglobin 13.1 g/dL (13.5-17.5); Lymphocytes Absolute Auto 1900 /uL (1100-4500); Mean Corpuscular HGB Conc 34.0 % (30-36); Mean Corpuscular Hemoglobin 29.3 PG (26-34); Mean Corpuscular Volume 86.3 fL (80-100); Platelet Count 399 X10^3/uL (150-400)
[2025-06-06] MEDS: droPERidol 2.5 MG/ML VIAL IV (00:56)
[2025-06-06] MEDS: LACTATED RINGERS 1,000 ML 1000 ML IV (00:56)
[2025-06-06] MEDS: diphenhydrAMINE 50 MG/ML VIAL IV (00:56)
[2025-06-06] MEDS: KETOROLAC 30 MG/ML VIAL 15 MG IV (00:57)
[2025-06-06 01:00] LABS: Alanine Aminotransferase 35 IU/L (<50); Albumin 4.6 g/dL (3.5-5.0); Albumin Globulin Ratio 1.5 (1.0-2.8); Alkaline Phosphatase 68 U/L (38-126); Blood Urea Nitrogen 7 mg/dL (9-20); Calcium 9.4 mg/dL (8.4-10.2); Carbon Dioxide 24 mmol/L (22-32); Chloride 105 mmol/L (98-107); Estimated Glomerular Filt Rate > 60 mL/min (>60); Globulin 3.1 g/dL (1.7-4.1); Glucose 140 mg/dL (70-99); HEMOLYSIS < 15 (0-50); Lipase 21 U/L (23-300); Potassium 3.6 mmol/L (3.4-5.1); Sodium 139 mmol/L (137-145); Total Protein 7.7 g/dL (6.3-8.2)
[2025-06-06 03:57] LABS: Lactate (Lactic Acid) 1.7 mmol/L (0.7-2.1)
--- NOTE | 2025-06-06 06:07 | PM.HP.1 ---
History of Present Illness History of Present Illness Date Patient Seen: 06/06/25 Time Patient Seen: 05:00 Chief complaint: Anxiety Narrative: 39 y/o with PMH of anxiety, alcoholism and recently diagnosed Rt renal complex cyst, presented to ED anxious with abdominal pain, a week after he had Rt kidney mass biopsy at the . He was drinking alcohol earlier today. Without fever, chills, body aches, dysuria, hematuria, rectal bleeding, penile discharge, testicular pain. CT scan showed ill-defined area of hypodensity in the mid right kidney. This is the site of prior small cystic lesion. This could represent Cyst rupture, renal infarct or pyelonephritis. Mild leukocytosis. Started on Rocephin and placed in observation. [facility] Medical History Rash of genitalia Medication refill Opiate dependence, continuous (01/12/17) Anxiety Surgical History No significant past surgical history Social History household members: family Smoking Status: Smoker, status unknown Meds Home Medications and Allergies Home Medications ?Medication ?Instructions ?Recorded ?Confirmed ?Type ondansetron 4 mg disintegrating 4 mg PO Q8H PRN nausea and 03/24/25 06/06/25 Rx tablet vomiting #30 tabs hydroxyzine HCl 50 mg tablet 50 mg PO QID PRN anxiety #60 tabs 04/28/25 06/06/25 Rx omeprazole magnesium 20 mg 40 mg (2 x 20 mg) PO DAILY #60 tabs 04/28/25 06/06/25 Rx tablet,delayed release (Prilosec OTC) buprenorphine 8 mg-naloxone 2 mg 1 film sublingual 3XD 06/06/25 06/06/25 History sublingual film (Suboxone) buspirone 30 mg tablet 30 mg PO BID 06/06/25 06/06/25 History quetiapine 300 mg tablet 300 mg PO ONCE PM 06/06/25 06/06/25 History Allergies Allergy/AdvReac Type Severity Reaction Status Date / Time No Known Drug Allergies Allergy Verified 04/28/25 08:48 Review of Systems Review of Systems Narrative: General - w/o fever or chills UG / GI- w/o hematuria or dysuria, Rt sided abdominal pain, resolved nausea and vomiting Psych - anxious CVS - w/o chest pain RS - w/o SOB GI - w/o complaints Exam Vital Signs (past 8 hours): - 06/06/25 00:14 06/06/25 01:01 06/06/25 01:02 Temperature 98.4 F Pulse Rate 133 H 105 H Respiratory Rate 20 Blood Pressure 141/85 H Pulse Oximetry 96 98 96 Oxygen Delivery Method Room Air 06/06/25 01:02 06/06/25 01:30 06/06/25 01:30 Temperature Pulse Rate 92 H Respiratory Rate 16 Blood Pressure 155/84 H 137/79 Pulse Oximetry 93 Oxygen Delivery Method 06/06/25 03:34 06/06/25 03:35 06/06/25 03:35 Temperature Pulse Rate 77 82 Respiratory Rate Blood Pressure 139/83 Pulse Oximetry 93 97 Oxygen Delivery Method Oxygen Delivery Method Room Air Narrative Exam Narrative: General - in no distress, appears sleepy GI - abdomen not distended and not tender on RN's palpation Psych - lucid, does not appear anxious CVS - RRR RS - normal respiratory effort Objective Imaging CT ABDOMEN: Radiologist's impression: CT scan showed ill-defined area of hypodensity in the mid right kidney. This is the site of prior small cystic lesion. This could represent Cyst rupture, renal infarct or pyelonephritis. Labs 06/06/25 00:40 06/06/25 00:40 Labs: Laboratory Results - last 24 hr 06/06/25 06/06/25 00:40 03:27 WBC 12.8 H RBC 4.48 L Hgb 13.1 L Hct 38.6 L MCV 86.3 MCH 29.3 MCHC 34.0 RDW 14.0 Plt Count 399 Neut % (Auto) 79.6 H Lymph % (Auto) 14.4 L [place] % (Auto) 5.2 Eos % (Auto) 0.1 L Baso % (Auto) 0.7 Neut # (Auto) 03653 H Lymph # (Auto) 1900 [place] # (Auto) 700 Eos # (Auto) 0 Baso # (Auto) 100 Sodium 139 Potassium 3.6 Chloride 105 Carbon Dioxide 24 BUN 7 L Creatinine 0.68 Estimated GFR > 60 BUN/Creatinine Ratio 10.3 Glucose 140 H Lactate 1.7 Calcium 9.4 Total Bilirubin 0.4 AST 34 ALT 35 Alkaline Phosphatase 68 Lactate Dehydrogenase 267 H C-Reactive Protein 2.2 H Total Protein 7.7 Albumin 4.6 Globulin 3.1 Albumin/Globulin Ratio 1.5 Lipase 21 L Assessment & Plan Assessment and plan (1) Right kidney mass: Status: Acute (2) Alcohol use disorder: Status: Acute (3) Anxiety: Status: Acute (4) GERD (gastroesophageal reflux disease): Status: Acute Assessment & Plan narrative: Rt kidney mass / UTI? - pathology pending - empiric Rocephin Alcohol use - counseled GERD - PPI - abstinence from alcohol Anxiety / Depression - buspirone, hydroxyzine, Seroquel DVT prophylaxis - SCDs Patient consented to telemedicine, two-way audio-visual encounter with RN assisting with the exam. Patient located at [facility], provider located in [place]. Time-Based Coding :: [TOTAL MINUTES] spent with patient and on the chart (including review of chart, obtaining history, exam, reviewing outside data, placing orders, documenting exam and treatment plan, and counseling patient) on [DATE].
--- NOTE | 2025-06-06 07:44 | PM.HP.1 ---
History of Present Illness History of Present Illness Date Patient Seen: 06/06/25 Chief complaint: Anxiety Narrative: Summary: 39 y/o with PMH of anxiety, alcoholism and recently diagnosed Rt renal complex cyst, presented to ED anxious with abdominal pain, a week after he had Rt kidney mass biopsy at the . He was drinking alcohol earlier today. Without fever, chills, body aches, dysuria, hematuria, rectal bleeding, penile discharge, testicular pain. CT scan showed ill-defined area of hypodensity in the mid right kidney. This is the site of prior small cystic lesion. This could represent Cyst rupture, renal infarct or pyelonephritis. Mild leukocytosis. Started on Rocephin and placed in observation. S: He thinks he had a panic attack yesterday. He was feeling anxious and diffusely uncomfortable. He would some abdominal pain. All of the symptoms have resolved for the most part. He feels a little bit uneasy. He was somewhat worried about his pending kidney mass biopsy. [place] with his father. He denies drinking on a regular basis at this time. ROS: All else reviewed and otherwise negative. O: NAD, alert and oriented, fluent speech, calm. Normocephalic skull, EOMI, anicteric sclera, symmetric pupils. Oropharynx unremarkable, no droop. Neck supple, midline trachea, no adenopathy. Lungs clear, normal rate and effort. Heart regular, no murmur gallop or rub. Abdomen is soft, non distended and non tender. Extremities are free of edema. Skin is free of rash or lesions. Joints are not swollen or deformed. Judgment appears to be normal. IMAGING: APCT: 1. Ill-defined area of hypodensity in the mid right kidney. This is at the site of prior small cystic lesion. This could represent cyst rupture. Renal infarct or pyelonephritis should also be considered. 2. Small right pleural effusion. 3. Normal appendix. No small bowel obstruction. A/P: 1. Abdominal pain inpatient with recent kidney mass biopsy, active. 2. Possible UTI, active. 3. Probable alcohol use disorder and possible withdrawal, active. 4. Anxiety and depression, active. PLAN: -Ativan prn -continue antibiotics and follow culture -treat pain PFSH Medical History Rash of genitalia Medication refill Opiate dependence, continuous (01/12/17) Anxiety Surgical History No significant past surgical history Social History household members: family Smoking Status: Smoker, status unknown Meds Home Medications and Allergies Home Medications ?Medication ?Instructions ?Recorded ?Confirmed ?Type ondansetron 4 mg disintegrating 4 mg PO Q8H PRN nausea and 03/24/25 06/06/25 Rx tablet vomiting #30 tabs hydroxyzine HCl 50 mg tablet 50 mg PO QID PRN anxiety #60 tabs 04/28/25 06/06/25 Rx omeprazole magnesium 20 mg 40 mg (2 x 20 mg) PO DAILY #60 tabs 04/28/25 06/06/25 Rx tablet,delayed release (Prilosec OTC) buprenorphine 8 mg-naloxone 2 mg 1 film sublingual 3XD 06/06/25 06/06/25 History sublingual film (Suboxone) buspirone 30 mg tablet 30 mg PO BID 06/06/25 06/06/25 History quetiapine 300 mg tablet 300 mg PO ONCE PM 06/06/25 06/06/25 History Allergies Allergy/AdvReac Type Severity Reaction Status Date / Time No Known Drug Allergies Allergy Verified 04/28/25 08:48 Review of Systems Review of Systems Narrative: All else reviewed and otherwise unremarkable except as noted in the history and physical. Exam Vital Signs (past 8 hours): - 06/06/25 00:14 06/06/25 01:01 06/06/25 01:02 Temperature 98.4 F Pulse Rate 133 H 105 H Respiratory Rate 20 Blood Pressure 141/85 H Pulse Oximetry 96 98 96 Oxygen Delivery Method Room Air 06/06/25 01:02 06/06/25 01:30 06/06/25 01:30 Temperature Pulse Rate 92 H Respiratory Rate 16 Blood Pressure 155/84 H 137/79 Pulse Oximetry 93 Oxygen Delivery Method 06/06/25 03:34 06/06/25 03:35 06/06/25 03:35 Temperature Pulse Rate 77 82 Respiratory Rate Blood Pressure 139/83 Pulse Oximetry 93 97 Oxygen Delivery Method Oxygen Delivery Method Room Air Objective Labs 06/06/25 07:50 06/06/25 07:50 Labs: Laboratory Results - last 24 hr 06/06/25 06/06/25 00:40 03:27 WBC 12.8 H RBC 4.48 L Hgb 13.1 L Hct 38.6 L MCV 86.3 MCH 29.3 MCHC 34.0 RDW 14.0 Plt Count 399 Neut % (Auto) 79.6 H Lymph % (Auto) 14.4 L [place] % (Auto) 5.2 Eos % (Auto) 0.1 L Baso % (Auto) 0.7 Neut # (Auto) 56161 H Lymph # (Auto) 1900 [place] # (Auto) 700 Eos # (Auto) 0 Baso # (Auto) 100 Sodium 139 Potassium 3.6 Chloride 105 Carbon Dioxide 24 BUN 7 L Creatinine 0.68 Estimated GFR > 60 BUN/Creatinine Ratio 10.3 Glucose 140 H Lactate 1.7 Calcium 9.4 Total Bilirubin 0.4 AST 34 ALT 35 Alkaline Phosphatase 68 Lactate Dehydrogenase 267 H C-Reactive Protein 2.2 H Total Protein 7.7 Albumin 4.6 Globulin 3.1 Albumin/Globulin Ratio 1.5 Lipase 21 L Assessment & Plan Time-Based Coding :: [TOTAL MINUTES] spent with patient and on the chart (including review of chart, obtaining history, exam, reviewing outside data, placing orders, documenting exam and treatment plan, and counseling patient) on [DATE].
[2025-06-06 08:05] LABS: Add Manual Diff / Slide Review NO; Hematocrit 36.6 % (41-53); Hemoglobin 12.6 g/dL (13.5-17.5); Lymphocytes Absolute Auto 3000 /uL (1100-4500); Mean Corpuscular HGB Conc 34.6 % (30-36); Mean Corpuscular Hemoglobin 29.5 PG (26-34); Mean Corpuscular Volume 85.4 fL (80-100); Platelet Count 372 X10^3/uL (150-400)
[2025-06-06 08:27] LABS: Blood Urea Nitrogen 8 mg/dL (9-20); Calcium 9.3 mg/dL (8.4-10.2); Carbon Dioxide 26 mmol/L (22-32); Chloride 107 mmol/L (98-107); Estimated Glomerular Filt Rate > 60 mL/min (>60); Glucose 85 mg/dL (70-99); HEMOLYSIS < 15 (0-50); Potassium 3.8 mmol/L (3.4-5.1); Sodium 142 mmol/L (137-145)
--- NOTE | 2025-06-06 09:00 | CM.DANOTE ---
Initial DCP Assessment Note Pt is a 39 yo male, resident of [place], hx anxiety, ETOH, renal complex cyst ? s/p recent kidney mass biopsy at . Reviewed chart, patient lives independently with family and is expected to return home upon discharge. No barriers identified at this time to patient's safe discharge home w/family to assist as needed; close outpatient f/u recommended. Social work team will plan to follow clinical course closely in case any DC needs or concerns arise. 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 No History Provided By Patient Prior Living RV Arrangements Household Members family Type of Drives own vehicle transporation used prior to admit Independent with ADL Yes 's Is patient alert and Yes oriented? Discharge Plan Home Transportation Family vs self Arrangement Referrals Initiated None needed
[2025-06-06] MEDS: SODIUM CHLORIDE 0.9% FLUSH 10 ML IV (09:14)
[2025-06-06] MEDS: BUPRENORPHINE NALOXONE 1 EACH SL ×2 (09:48→14:51)
--- NOTE | 2025-06-06 18:36 | P.DS_ITS ---
History of Present Illness History of Present Illness Chief complaint: Anxiety Narrative: Summary: 39 y/o with PMH of anxiety, alcoholism and recently diagnosed Rt renal complex cyst, presented to ED anxious with abdominal pain, a week after he had Rt kidney mass biopsy at the . He was drinking alcohol earlier today. Without fever, chills, body aches, dysuria, hematuria, rectal bleeding, penile discharge, testicular pain. CT scan showed ill-defined area of hypodensity in the mid right kidney. This is the site of prior small cystic lesion. This could represent Cyst rupture, renal infarct or pyelonephritis. Mild leukocytosis. Started on Rocephin and placed in observation. S: He thinks he had a panic attack yesterday. He was feeling anxious and diffusely uncomfortable. He would some abdominal pain. All of the symptoms have resolved for the most part. He feels a little bit uneasy. He was somewhat worried about his pending kidney mass biopsy. [place] property with his father. He denies drinking on a regular basis at this time. ROS: All else reviewed and otherwise negative. O:VS below. NAD, alert and oriented. Fluent speech. Lungs are clear, normal rate and effort. Heart is regular, no murmur gallop or rub. Abdomen is soft, non distended. Extremities are free of edema. IMAGING: APCT: 1. Ill-defined area of hypodensity in the mid right kidney. This is at the site of prior small cystic lesion. This could represent cyst rupture. Renal infarct or pyelonephritis should also be considered. 2. Small right pleural effusion. 3. Normal appendix. No small bowel obstruction. A/P: 1. Abdominal pain inpatient with recent kidney mass biopsy, resolved. 2. Panic attack, improved. 3.Alcohol use. 4. Anxiety and depression, active. Hospital course: The patient described an episode of panic attack and improved over the course of the morning. There was no evidence of infection, cultures remained negative. A urine was not obtained. He had no urinary symptoms. At the end of the day, he felt at baseline was felt to be stable for discharge home. He will be discharged with Ativan as needed 14. And I will follow up with him by telephone tomorrow morning. He will be advised to follow up with his primary care within the next week and he expects to hear back on kidney biopsy results next several weeks. [N], the patient has documentation of a left ventricle ejection fracture less than or equal to 40%, or moderately or severely reduced left ventricle systolic function. [N], the patient has a history of heart transplant or left ventricular assist device (LVAD). [N], the patient was prescribed an MOISÉS inhibitor at discharge or is already being taken. The patient was not prescribed an MOISÉS-inhibitor because of the following exception: NA. [N], the patient was prescribed Metoprolol succinate, bisoprolol, or carvedilol at discharge. The patient was not prescribed Metoprolol succinate, bisoprolol, or carvedilol at discharge because of the following exception: NA Discharge Providers Provider Date of admission: 06/06/25 03:05 Discharge Date: 06/06/25 Primary care physician: Doctor Kassie MD Consults: None. Discharge provider: Gallo Lee MD Summary Hospital Course Discharge Diagnosis: 1. Abdominal pain inpatient with recent kidney mass biopsy, resolved. 2. Panic attack, improved. 3.Alcohol use. 4. Anxiety and depression, active. Status at Discharge Cognitive/behavioral status at discharge: oriented Functional status at discharge: independent ambulation Overall status at discharge: patient is back to baseline Time Spent with Patient Time spent: Greater than 30 minutes Exam Vital Signs (past 8 hours): - 06/06/25 13:24 Temperature 97.4 F L Pulse Rate 69 Respiratory Rate 14 Blood Pressure 117/72 Pulse Oximetry 95 Oxygen Flow Rate 0 Oxygen Delivery Method Room Air Oxygen Flow Rate 0 Objective Labs 06/06/25 07:50 06/06/25 07:50 Labs: Laboratory Results - last 24 hr 06/06/25 06/06/25 06/06/25 00:40 03:27 07:50 WBC 12.8 H 10.3 RBC 4.48 L 4.28 L Hgb 13.1 L 12.6 L Hct 38.6 L 36.6 L MCV 86.3 85.4 MCH 29.3 29.5 MCHC 34.0 34.6 RDW 14.0 14.0 Plt Count 399 372 Neut % (Auto) 79.6 H 60.3 Lymph % (Auto) 14.4 L 29.0 [place] % (Auto) 5.2 9.2 Eos % (Auto) 0.1 L 0.7 L Baso % (Auto) 0.7 0.8 Neut # (Auto) 59923 H 6200 Lymph # (Auto) 1900 3000 [place] # (Auto) 700 900 Eos # (Auto) 0 100 Baso # (Auto) 100 100 Sodium 139 142 Potassium 3.6 3.8 Chloride 105 107 Carbon Dioxide 24 26 BUN 7 L 8 L Creatinine 0.68 0.66 Estimated GFR > 60 > 60 BUN/Creatinine Ratio 10.3 12.1 Glucose 140 H 85 Lactate 1.7 Calcium 9.4 9.3 Total Bilirubin 0.4 AST 34 ALT 35 Alkaline Phosphatase 68 Lactate Dehydrogenase 267 H C-Reactive Protein 2.2 H Total Protein 7.7 Albumin 4.6 Globulin 3.1 Albumin/Globulin Ratio 1.5 Lipase 21 L PFSH Medical History Rash of genitalia Medication refill Opiate dependence, continuous (01/12/17) Anxiety Surgical History No significant past surgical history Social History household members: family Smoking Status: Smoker, status unknown Discharge Plan Discharge Plan Patient Disposition: Home Provider Discharge Comment: Symptoms improved, stable for discharge. Discharge orders & Medications Prescriptions: New lorazepam [Ativan] 1 mg tablet 1 mg PO TID PRN (Reason: anxiety) Qty: 14 0RF Continued ondansetron 4 mg tablet,disintegrating 4 mg PO Q8H PRN (Reason: nausea and vomiting) Qty: 30 0RF hydroxyzine HCl 50 mg tablet 50 mg PO QID PRN (Reason: anxiety) Qty: 60 0RF omeprazole magnesium [Prilosec OTC] 20 mg tablet,delayed release (DR/EC) 40 mg PO DAILY Qty: 60 0RF quetiapine 300 mg tablet 300 mg PO ONCE PM buspirone 30 mg tablet 30 mg PO BID buprenorphine-naloxone [Suboxone] 8-2 mg film 1 film sublingual 3XD Medication counseling provided by Pharmacist: No Follow up/Referrals: Doctor Fernando MD [Primary Care Provider, Medical] Discharge Health Status Multidrug resistant organism: No MDRO Diet/Activity/Treatments Diet: Regular Visit Report/Discharge Packet Instructions: DI for Panic Disorder Stand Alone Forms: Patient Portal/API Discharge Data Primary Care Provider: Doctor Kassie Attending Provider: Jayden Lim Admit Date/Time: 06/06/25 03:05
== END 2025-06-06 19:51 | disposition home or self-care (01) ==
LOC: ED 00:21 → AC 03:05
PROVIDERS: Admitting Provider Internal Medicine; Emergency Provider Family Medicine; Visit Provider Internal Medicine
DX: N28.1 Cyst of kidney, acquired (principal); K21.9 Gastro-esophageal reflux disease without esophagitis; F41.9 Anxiety disorder, unspecified; F41.0 Panic disorder [episodic paroxysmal anxiety]; F32.A Depression, unspecified; F10.20 Alcohol dependence, uncomplicated; F17.210 Nicotine dependence, cigarettes, uncomplicated; Z79.891 Long term (current) use of opiate analgesic
CPT/HCPCS: 36415; 74177; 80048; 80053; 81003; 83605; 83615; 83690; 85025; 86140; 87040; 96361; 96365; 96375; 99284; G0378; J0696; J1200; J1790; J1885; Q9967

== ENCOUNTER 2025-06-13 08:09 | Emergency (ER) | payer OTHER, SELFPAY ==
[2025-06-06 04:00] VITALS: BMI 27.1
[2025-06-13 08:23] VITALS: BP 140/81; PULSE 128; RESP 16; TEMP 36.6; O2SAT 97; BMI 27.1
--- NOTE | 2025-06-13 09:33 | ED.ANXIETY ---
HPI - Anxiety General Chief Complaint: Anxiety Stated Complaint: Panic Attack, light headedness Time Seen by Provider: 06/13/25 09:28 Source: patient Mode of arrival: Ambulatory History of Present Illness HPI narrative: Patient is a 39-year-old male history of anxiety alcoholism presenting today with what he thinks was an anxiety attack. He was admitted June 06 discharge the same day for possible anxiety attack. 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 He had 2 lorazepam and feels better. He does not want mental health hospitalization. No suicidal ideation Related Data Home Medications ?Medication ?Instructions ?Recorded ?Confirmed buprenorphine 8 mg-naloxone 2 mg 1 film sublingual 3XD 06/06/25 06/06/25 sublingual film (Suboxone) buspirone 30 mg tablet 30 mg PO BID 06/06/25 06/06/25 quetiapine 300 mg tablet 300 mg PO ONCE PM 06/06/25 06/06/25 Previous Rx's ?Medication ?Instructions ?Recorded ondansetron 4 mg disintegrating 4 mg PO Q8H PRN nausea and 03/24/25 tablet vomiting #30 tabs hydroxyzine HCl 50 mg tablet 50 mg PO QID PRN anxiety #60 tabs 04/28/25 omeprazole magnesium 20 mg 40 mg (2 x 20 mg) PO DAILY #60 tabs 04/28/25 tablet,delayed release (Prilosec OTC) lorazepam 1 mg tablet (Ativan) 1 mg PO TID PRN anxiety #14 tabs 06/06/25 lorazepam 1 mg tablet 1 mg PO BID PRN anxiety #7 tabs 06/13/25 Allergies Allergy/AdvReac Type Severity Reaction Status Date / Time No Known Drug Allergies Allergy Verified 04/28/25 08:48 Patient History Medical History Rash of genitalia Medication refill Opiate dependence, continuous (01/12/17) Anxiety Surgical History No significant past surgical history Social History household members: family tobacco type: cigarettes and smokeless tobacco alcohol intake frequency: 3 or more drinks per day Alcohol type: hard liquor Exam Initial Vital Signs Initial Vital Signs: Vital Signs Temperature 97.8 F 06/13/25 08:23 Pulse Rate 128 H 06/13/25 08:23 Respiratory Rate 16 06/13/25 08:23 Blood Pressure 140/81 06/13/25 08:23 Pulse Oximetry 97 06/13/25 08:23 Oxygen Delivery Method Room Air 06/13/25 08:23 GENERAL: Alert well-appearing 39-year-old male and in no acute distress. HEENT: Head atraumatic,EOMI, pupils reactive, face symmetric, moist mucous membranes CARDIOVASCULAR: Regular rate and rhythm without murmurs, rubs or gallops. RESPIRATORY: Breath sounds equal bilaterally, no wheezes rales or rhonchi. ABDOMEN: Soft, nontender. Normoactive bowel sounds all 4 quadrants. No guarding or rebound. EXTREMITIES: Normal range of motion, no clubbing or edema. Neurovascularly intact NEUROLOGICAL: Alert and oriented x4.Normal gait and speech. Cranial nerves II through XII grossly intact. SKIN: Warm, dry, no laceration, no petechiae, no rashes or lesions. 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 06/13/25 08:32 EKG-12 Lead Stat 06/13/25 09:45 Chest [XR chest 1V] Stat 06/13/25 10:16 TSH w/ Reflex to FT4 Stat 06/13/25 10:49 Urine Drug Screen, Rapid Stat 06/13/25 11:15 Acetaminophen Stat Complete Blood Count AUTO DIFF Stat Comprehensive Metabolic Panel Stat Ethanol (ETOH) Stat Salicylate Stat Trop I [Troponin I] Stat Vital Signs Vital signs: Vital Signs - 8 hr 06/13/25 08:23 Temperature 97.8 F Pulse Rate 128 H Respiratory Rate 16 Blood Pressure 140/81 Pulse Oximetry 97 Oxygen Delivery Method Room Air MDM - Anxiety Lab Data 06/13/25 11:15 06/13/25 11:15 Labs: Lab Results 06/13/25 06/13/25 06/13/25 Range/Units 10:16 10:49 11:15 WBC 12.0 H (4.5-11.0) X10^3/uL RBC 4.54 (4.5-5.9) X10^6/uL Hgb 13.4 L (13.5-17.5) g/dL Hct 39.3 L (41-53) % MCV 86.5 (80-100) fL MCH 29.5 (26-34) PG MCHC 34.1 (30-36) % RDW 14.2 (11.6-14.8) % Plt Count 385 (150-400) X10^3/uL Neut % (Auto) 83.9 H (50-75) % Lymph % (Auto) 10.6 L (25-40) % [place] % (Auto) 4.9 (3-14) % Eos % (Auto) 0.1 L (2-4) % Baso % (Auto) 0.5 (0-2) % Neut # (Auto) 49615 H (6495-7867) /uL Lymph # (Auto) 1300 (6667-9380) /uL [place] # (Auto) 600 (0-900) /uL Eos # (Auto) 0 (0-450) /uL Baso # (Auto) 100 (0-100) /uL Sodium 141 (137-145) mmol/L Potassium 4.2 (3.4-5.1) mmol/L Chloride 106 (98-107) mmol/L Carbon Dioxide 26 (22-32) mmol/L BUN 10 (9-20) mg/dL Creatinine 0.68 (0.66-1.25) mg/dL Estimated GFR > 60 (>60) mL/min BUN/Creatinine Ratio 14.7 (6-22) Glucose 94 (70-99) mg/dL Calcium 9.2 (8.4-10.2) mg/dL Total Bilirubin 0.7 (0.2-1.3) mg/dL AST 23 (17-59) IU/L ALT 20 (<50) IU/L Alkaline Phosphatase 66 (38-126) U/L Troponin I < 0.012 (0.01-0.034) ng/mL Total Protein 7.5 (6.3-8.2) g/dL Albumin 4.4 (3.5-5.0) g/dL Globulin 3.1 (1.7-4.1) g/dL Albumin/Globulin Ratio 1.4 (1.0-2.8) TSH 2.18 (0.47-4.68) uIU/mL Salicylates < 1.0 (<20) mg/dL U Opiates 300ng/mL cut Negative (Negative) Ur Oxycodone Screen Negative (Negative) Urine Methadone Screen Negative (Negative) Acetaminophen < 10 (10-30) ug/mL Ur Barbiturates Screen Negative (Negative) U Tricyclic Antidepress Positive H (Negative) Ur Phencyclidine Scrn Negative (Negative) Ur Amphetamines Screen Negative (Negative) U Methamphetamines Scrn Negative (Negative) Ur MDMA Scrn (Ecstasy) Negative (Negative) U Benzodiazepines Scrn Positive H (Negative) Urine Cocaine Screen Negative (Negative) U Marijuana (THC) Screen Negative (Negative) Urine pH Normal (Normal) Urine Specific [place] Normal (Normal) Ethyl Alcohol < 10 (<10) mg/dL Ur Creatinine Normal (Normal) Urine Dip Bedside Urine Glucose Negative Bedside Urine Bilirubin - Negative Bedside Urine Ketone - Negative Urine Specific [place] 1.005 Bedside Urine Occult Blood - Negative Bedside Urine pH 8.0 Bedside Urine Protein - Negative Bedside Urine Urobilinogen - Negative Bedside Urine Nitrite - Negative Bedside Urine Leukocytes - Negative Esterase Imaging Data Chest x-ray: Radiologist's Impression: PROCEDURE: XR CHEST 1V INDICATIONS: chest pain TECHNIQUE: One view of the chest was acquired. COMPARISON: [facility], , XR CHEST 1V, 01/06/2025, 2:35. FINDINGS: Surgical changes and devices: None. Lungs and pleura: Lungs are clear. No pleural effusions or pneumothorax. Mediastinum: Mediastinal contours appear normal. Heart size is normal. Bones and chest wall: No suspicious bony lesions. Overlying soft tissues appear unremarkable. IMPRESSION: No acute cardiopulmonary pathology. Dictated by: Junaid Vieira M.D. on 06/13/2025 at 10:32 ECG Data Attestation: I personally reviewed and interpreted this ECG as follows: Prior ECG tracings: available for review Interpretation: Normal sinus rhythm rate 83 NV interval 140 QRS [address] changes no T-wave inversions similar to previous MDM Narrative Medical decision making narrative: Patient 39-year-old male presenting today with chest pain history of anxiety and alcoholism. Took 2 lorazepam prior to arrival overall feeling better Blood work reviewed CBC mild leukocytosis of 12 no anemia CMP electrolytes kidney function within normal limits TSH 2.1 Troponin negative EKGs shows sinus rhythm without ischemia Chest x-ray no acute cardiopulmonary process This time no need for any further workup he was evaluated with social Work Services. Would like refill of his lorazepam. Suspect anxiety reaction today. Low suspicion for any kind of pulmonary embolism he was in hospital for less than 24 hours Discharge Plan Departure Patient Disposition: Home Clinical Impression: Anxiety Instructions: Anxiety Disorders Activity Restrictions/Additional Instructions: *You have been diagnosed with anxiety *What to do: At this time please follow-up lorazepam is not a intermediate anxiety medication. *Continue to take medications as directed Lorazepam 1 mg every 12 hours only as needed-you will not be receiving refill of this medication from the emergency department after the *Follow up with your primary care provider in 2-3 days or call [phone] *Return to ER if you should have increased chest pain shortness of breath or any new, worsening or concerning symptoms CONTROLLED SUBSTANCE DISCHARGE (Narcotoic/benzodiazepine/Flexeril/Phenergan) 1. You have been prescribed narcotic medications, it does have acetaminophen/Tylenol/paracetamol in it, DO NOT TAKE MORE THAN 4,00mg in 24 hours of Tylenol. TRAMADOL DOES NOT CONTAIN TYLENOL 2. Please understand that we cannot provide further refills of narcotics, benzodiazepines or controlled substances through the ED and her pain management will need to be through your provider. 3. While on these medications you cannot drive or operate heavy machinery. 4. You cannot sign legal documents or perform any duties such as this. 5. As long as you're taking opiate pain medications he should also be taking a stool softener such as Colace, Dulcolax, MiraLAX or prune juice, to help avoid constipation. Prescriptions: New lorazepam 1 mg tablet 1 mg PO BID PRN (Reason: anxiety) Qty: 7 0RF No Action ondansetron 4 mg tablet,disintegrating 4 mg PO Q8H PRN (Reason: nausea and vomiting) Qty: 30 0RF hydroxyzine HCl 50 mg tablet 50 mg PO QID PRN (Reason: anxiety) Qty: 60 0RF omeprazole magnesium [Prilosec OTC] 20 mg tablet,delayed release (DR/EC) 40 mg PO DAILY Qty: 60 0RF quetiapine 300 mg tablet 300 mg PO ONCE PM buspirone 30 mg tablet 30 mg PO BID buprenorphine-naloxone [Suboxone] 8-2 mg film 1 film sublingual 3XD lorazepam [Ativan] 1 mg tablet 1 mg PO TID PRN (Reason: anxiety) Qty: 14 0RF Referrals: aLwson Cleaning, DO [Primary Care Provider, Family Practice] Stand Alone Forms: Patient Portal/API
--- NOTE | 2025-06-13 09:45 | DI.RAD.S_ITS ---
PROCEDURE: XR CHEST 1V INDICATIONS: chest pain TECHNIQUE: One view of the chest was acquired. COMPARISON: [facility], CR, XR CHEST 1V, 01/06/2025, 2:35. FINDINGS: Surgical changes and devices: None. Lungs and pleura: Lungs are clear. No pleural effusions or pneumothorax. Mediastinum: Mediastinal contours appear normal. Heart size is normal. Bones and chest wall: No suspicious bony lesions. Overlying soft tissues appear unremarkable. IMPRESSION: No acute cardiopulmonary pathology. Dictated by: Junaid Vieira M.D. on 06/13/2025 at 10:32 Approved by: Junaid Vieira M.D. on 06/13/2025 at 10:32
--- NOTE | 2025-06-13 10:52 | EKG_ITS ---
[place] [id number] [place] [id number] Test Date: 2025-06-13 Pat Name: Wale Todd Department: [facility] Room: Gender: Male [employer] Developer: SHANTEL : 1985 Requested By: Order Number: [id number] Reading MD: Gallo Lee Measurements Intervals [place] Rate: 83 P: 60 ME: 140 QRS: 33 QRSD: 90 T: 49 QT: 372 QTc: 437 Interpretive Statements Normal sinus rhythm Septal infarct , age undetermined Electronically Signed On 06-13-2025 17:11:24 PDT by Gallo Lee
[2025-06-13 11:13] LABS: Ur Specific Gravity Normal (Normal)
[2025-06-13 11:14] LABS: UR Morphine/Opiate cutoff 300 Negative (Negative); Urine MDMA Negative (Negative); Urine Methamphetamines Negative (Negative); Urine Tetrahydrocannabinol Negative (Negative); Urine Tricyclic Antidepressant Positive (Negative)
[2025-06-13 11:24] LABS: TSH w/ Reflex to FT4 2.18 uIU/mL (0.47-4.68)
[2025-06-13 11:54] LABS: Add Manual Diff / Slide Review NO; Hematocrit 39.3 % (41-53); Hemoglobin 13.4 g/dL (13.5-17.5); Lymphocytes Absolute Auto 1300 /uL (1100-4500); Mean Corpuscular HGB Conc 34.1 % (30-36); Mean Corpuscular Hemoglobin 29.5 PG (26-34); Mean Corpuscular Volume 86.5 fL (80-100); Platelet Count 385 X10^3/uL (150-400)
[2025-06-13 12:08] LABS: Acetaminophen < 10 ug/mL (10-30); Alanine Aminotransferase 20 IU/L (<50); Albumin 4.4 g/dL (3.5-5.0); Albumin Globulin Ratio 1.4 (1.0-2.8); Alkaline Phosphatase 66 U/L (38-126); Blood Urea Nitrogen 10 mg/dL (9-20); Calcium 9.2 mg/dL (8.4-10.2); Carbon Dioxide 26 mmol/L (22-32); Chloride 106 mmol/L (98-107); Estimated Glomerular Filt Rate > 60 mL/min (>60); Ethanol (ETOH) < 10 mg/dL (<10); Globulin 3.1 g/dL (1.7-4.1); Glucose 94 mg/dL (70-99); HEMOLYSIS < 15 (0-50); Potassium 4.2 mmol/L (3.4-5.1); Salicylate < 1.0 mg/dL (<20); Sodium 141 mmol/L (137-145); Total Protein 7.5 g/dL (6.3-8.2)
--- NOTE | 2025-06-13 12:45 | CM.SWNOTE ---
ED LATHE WINDER Assessment Note: Pt is a 39yo male, resident of [place], is seen in the ED for panic attack and anxiety. Pt lives in an alone, he has local family. Pt's Primary Care Provider is Dr. Lawson Cleaning and insurance is Marcel TANG. Reviewed chart and discussed with multidisciplinary team pt's medical status and initial discharge needs. LATHE WINDER consulted for possible MH coordination. LATHE WINDER entered room to meet with patient, introduced self and role. Pt endorses he has a primary care provider appt next week and is requesting a bridge prescription to assist with anxiety. Pt also reports having an appointment at [facility] within the next week. LATHE WINDER called [facility] and confirmed pt appt is on Tuesday, 06/19 at 12:15pm. Provided pt with print out of appt time for reminder. LATHE WINDER attempted to call [facility] in [place] and left a voice message requesting a call back for coordination. LATHE WINDER reviews this with ED provider Dr. Johnson who indicates agreement and understanding, will send pt home with a Lorazepam PRN Rx to assist until PCP appt. Plan: Pt to discharge home, pt mother to transport home. PERLA Velasquez
[2025-06-13 12:54] LABS: Troponin I < 0.012 ng/mL (0.01-0.034)
--- NOTE | 2025-06-13 13:20 | CM.SWNOTE ---
ED FLOAT TENDER Assessment Note: Pt is a 39yo male, resident of [place], is seen in the ED for panic attack and anxiety. Pt lives in an alone, he has local family. Pt's Primary Care Provider is Dr. Lawson Cleaning and insurance is Marcel TANG. Reviewed chart and discussed with multidisciplinary team pt's medical status and initial discharge needs. FLOAT TENDER consulted for possible MH coordination. Pt was admitted on 06/06 and discharged home. FLOAT TENDER entered room to meet with patient, introduced self and role. Pt endorses he has a primary care provider appt next week and is requesting a bridge prescription to assist with anxiety. Pt also reports having an appointment at [facility] within the next week. Pt denies SI/HI, denies hallucinations at this time. Patient states he is already established with [facility] in [place] and should be starting care at [facility] for MH soon. FLOAT TENDER called [facility] and confirmed pt appt is on Tuesday, 06/19 at 12:15pm. Provided pt with print out of appt time for reminder. FLOAT TENDER attempted to call [facility] in [place] and left a voice message requesting a call back for coordination. FLOAT TENDER reviews this with ED provider Dr. Johnson who indicates agreement and understanding, will send pt home with a Lorazepam PRN Rx to assist until PCP appt. Plan: Pt to discharge home, pt mother to transport home. PERLA Velasquez
== END 2025-06-13 13:21 | disposition home or self-care (01) ==
PROVIDERS: Emergency Provider Emergency Medicine; PCP Family Medicine
DX: F41.9 Anxiety disorder, unspecified (principal); R07.9 Chest pain, unspecified
CPT/HCPCS: 36415; 71045; 80053; 80305; 80320; 80329; 81003; 84443; 84484; 85025; 93005; 99282; 99284; G0480

== ENCOUNTER 2025-07-27 20:28 | Emergency (ER) | payer OTHER, SELFPAY ==
[2025-06-06 04:00] VITALS: BMI 27.1
[2025-07-27 20:34] VITALS: BP 144/85; PULSE 88; RESP 20; TEMP 37.1; O2SAT 99; BMI 28.5
[2025-07-27 22:17] VITALS: PULSE 81; O2SAT 100
[2025-07-27 22:20] VITALS: BP 145/85; PULSE 87; O2SAT 98
[2025-07-27 22:31] VITALS: PULSE 78; O2SAT 97
[2025-07-27 23:00] VITALS: PULSE 79; O2SAT 98
--- NOTE | 2025-07-27 23:26 | ED.ANXIETY ---
HPI - Anxiety General Chief Complaint: Anxiety Stated Complaint: anxiety , trouble breathing Time Seen by Provider: 07/27/25 22:15 Source: patient Mode of arrival: Ambulatory History of Present Illness HPI narrative: 39-year-old male with history of opiate abuse currently on Suboxone program, history of anxiety, prior prescriptions for hydroxyzine not helping, taking buspirone not helping, having previous response to lorazepam, requesting prescription for lorazepam him, has mental health providers [facility]. Denies thoughts of hurting self or others. Related Data Home Medications ?Medication ?Instructions ?Recorded ?Confirmed buprenorphine 8 mg-naloxone 2 mg 1 film sublingual 3XD 06/06/25 06/06/25 sublingual film (Suboxone) buspirone 30 mg tablet 30 mg PO BID 06/06/25 06/06/25 quetiapine 300 mg tablet 300 mg PO ONCE PM 06/06/25 06/06/25 Previous Rx's ?Medication ?Instructions ?Recorded ondansetron 4 mg disintegrating 4 mg PO Q8H PRN nausea and 03/24/25 tablet vomiting #30 tabs hydroxyzine HCl 50 mg tablet 50 mg PO QID PRN anxiety #60 tabs 04/28/25 omeprazole magnesium 20 mg 40 mg (2 x 20 mg) PO DAILY #60 tabs 04/28/25 tablet,delayed release (Prilosec OTC) lorazepam 1 mg tablet (Ativan) 1 mg PO TID PRN anxiety #14 tabs 06/06/25 lorazepam 1 mg tablet 1 mg PO BID PRN anxiety #7 tabs 06/13/25 lorazepam 1 mg tablet 1 mg PO BID PRN anxiety #10 tabs 07/27/25 lorazepam 1 mg tablet 1 mg PO BID PRN anxiety #4 tabs 07/27/25 naloxone 4 mg/actuation nasal 4 mg intranasal Q2M PRN opioid 07/27/25 spray (Narcan) overdose #2 ea Allergies Allergy/AdvReac Type Severity Reaction Status Date / Time No Known Drug Allergies Allergy Verified 07/27/25 20:34 Patient History Medical History Rash of genitalia Medication refill Opiate dependence, continuous (01/12/17) Anxiety Surgical History No significant past surgical history Social History household members: family Smoking Status: Current every day smoker Smoking Status: Current every day smoker tobacco type: cigarettes and smokeless tobacco alcohol intake frequency: 3 or more drinks per day Alcohol type: hard liquor Exam Narrative Exam Narrative: GENERAL: Well-developed patient, in mild distress. HEAD: Atraumatic. Normocephalic. EYES: Pupils equal round and reactive. Extraocular motions intact. No scleral icterus. No injection or drainage. ENT: Nose without bleeding, purulent drainage. Throat without erythema, tonsillar hypertrophy or exudate. Airway patent. NECK: Trachea midline. Non tender CARDIOVASCULAR: Regular rate and rhythm without murmurs, gallops, or rubs. RESPIRATORY: Clear to auscultation. Breath sounds equal bilaterally. No wheezes, rales, or rhonchi. GASTROINTESTINAL: Abdomen soft, non-tender, nondistended. EXTREMITIES: No edema or joint tenderness. BACK: Nontender without deformity or crepitance. No flank tenderness. NEURO: AOx3. Motor functions grossly nonfocal. Psychiatric: Denies thoughts of hurting self or others. Clear speech, not particularly anxious appearing. No flight of ideas. SKIN: No rash or erythema of visible areas Initial Vital Signs Initial Vital Signs: Vital Signs Temperature 98.7 F 07/27/25 20:34 Pulse Rate 88 07/27/25 20:34 Respiratory Rate 20 07/27/25 20:34 Blood Pressure 144/85 H 07/27/25 20:34 Pulse Oximetry 99 07/27/25 20:34 Oxygen Delivery Method Room Air 07/27/25 20:34 Course Orders Ordered: Discontinued Medications Lorazepam (Lorazepam 0.5 Mg Tablet) 1 mg PO NOW ONE Stop: 07/27/25 23:43 Last Admin: 07/27/25 23:50 Dose: 1 mg Documented By: NICOLE Vital Signs Vital signs: Vital Signs - 8 hr 07/27/25 20:34 07/27/25 22:17 07/27/25 22:20 Temperature 98.7 F Pulse Rate 88 81 87 Respiratory Rate 20 Blood Pressure 144/85 H Pulse Oximetry 99 100 98 Oxygen Delivery Method Room Air 07/27/25 22:20 07/27/25 22:31 07/27/25 23:00 Temperature Pulse Rate 78 79 Respiratory Rate Blood Pressure 145/85 H Pulse Oximetry 97 98 Oxygen Delivery Method 07/27/25 23:30 Temperature Pulse Rate 85 Respiratory Rate Blood Pressure Pulse Oximetry 96 Oxygen Delivery Method MDM - Anxiety MDM Narrative Medical decision making narrative: 39-year-old male with history of opiate abuse on Suboxone, anxiety symptoms refractory to buspirone and hydroxyzine, requesting lorazepam that has helped him in the past. Afebrile, sirs screen negative. Denies SI/HI symptoms. Has a ride home. Oral dose of lorazepam given, with prescription for #4 tabs lorazepam, advised further benzodiazepine dosing through mental health providers. Discharged home with family. Follow up with his establish [facility] health providers advised. Takes Suboxone, prescription also sent for nasal naloxone if he might have accidental opiate exposure while missing any doses of Suboxone. Discharge Plan Departure Patient Disposition: Home Clinical Impression: Anxiety Instructions: DI for Anxiety -- Adult Activity Restrictions/Additional Instructions: History of anxiety and panic, prior experience with lorazepam in the past has been helpful, no thoughts of hurting self or others. Requests for lorazepam, which should be prescribed by your mental health providers as it is a controlled substance benzodiazepine class of medication. Single dose of lorazepam given while here in the emergency department, you had a ride home with your family. Prescription for 4 additional tablets to use as needed for tomorrow Tuesday and into Tuesday prescription sent to your requested pharmacy. Further benzodiazepine medications should be prescribed by your regular provider, and/or mental health provider. Suboxone also noted, prescription for nasal Narcan also sent to your pharmacy to fill and use if needed, should you have accidental opiate overdose experience, if you have not been taking any Suboxone. Follow up with your mental health providers early this week. Return to this/nearest emergency department for any change worsening symptoms or any concerns prior. Prescriptions: New lorazepam 1 mg tablet 1 mg PO BID PRN (Reason: anxiety) Qty: 10 0RF lorazepam 1 mg tablet 1 mg PO BID PRN (Reason: anxiety) Qty: 4 0RF naloxone [Narcan] 4 mg/actuation spray,non-aerosol 4 mg intranasal Q2M PRN (Reason: opioid overdose) Qty: 2 0RF Rx Instructions: spray 1 dose into ONE nostril; alternate nostrils w each dose until help arrives No Action ondansetron 4 mg tablet,disintegrating 4 mg PO Q8H PRN (Reason: nausea and vomiting) Qty: 30 0RF hydroxyzine HCl 50 mg tablet 50 mg PO QID PRN (Reason: anxiety) Qty: 60 0RF omeprazole magnesium [Prilosec OTC] 20 mg tablet,delayed release (DR/EC) 40 mg PO DAILY Qty: 60 0RF quetiapine 300 mg tablet 300 mg PO ONCE PM buspirone 30 mg tablet 30 mg PO BID buprenorphine-naloxone [Suboxone] 8-2 mg film 1 film sublingual 3XD lorazepam [Ativan] 1 mg tablet 1 mg PO TID PRN (Reason: anxiety) Qty: 14 0RF lorazepam 1 mg tablet 1 mg PO BID PRN (Reason: anxiety) Qty: 7 0RF Referrals: Lawson Cleaning DO [Primary Care Provider, Family Practice] Stand Alone Forms: Patient Portal/API
[2025-07-27 23:30] VITALS: PULSE 85; O2SAT 96
== END 2025-07-27 23:52 | disposition home or self-care (01) ==
PROVIDERS: Emergency Provider Emergency Medicine; PCP Family Medicine
DX: F41.9 Anxiety disorder, unspecified (principal)
CPT/HCPCS: 99283

== ENCOUNTER 2025-08-27 11:27 | Emergency (ER) | payer OTHER, SELFPAY ==
[2025-06-06 04:00] VITALS: BMI 27.1
[2025-08-27 11:35] VITALS: BP 142/86; PULSE 107; RESP 20; TEMP 37.1; O2SAT 97; BMI 27.1
[2025-08-27] MEDS: FAMOTIDINE 20 MG TABLET 40 MG PO (11:57)
[2025-08-27] MEDS: ONDANSETRON 4 MG ODT SL (11:57)
[2025-08-27] MEDS: MAG HYDROX/ALUMINUM/SIMETH SUS 30 ML, LIDOCAINE VISCOUS 2% 15 ML PO (11:57)
--- NOTE | 2025-08-27 12:50 | PC.NURSE ---
Pt not found in RP3 at 1220 and 1250
--- NOTE | 2025-08-27 13:17 | PC.NURSE ---
Called for pt in lobby 3x in 30 minutes. Left AMA. Charge and provider aware.
--- NOTE | 2025-08-27 19:28 | ED.ABDPAIN ---
HPI - Abdominal Pain <Sachin Caruso PA-C - Last Filed: 08/27/25 19:36> General Chief Complaint: Abdominal Pain Stated Complaint: abd px since last night Time Seen by Provider: 08/27/25 11:41 Source: patient Mode of arrival: Ambulatory History of Present Illness HPI narrative: 39-year-old male presents to the ED with 2 days of abdominal pain, nausea, vomiting. Reports some epigastric pain. Patient states he has had similar episodes like this in the past, is unsure what the diagnosis was and states that it resolved spontaneously. Patient does endorse a history of GERD and is currently feeling acid reflux. No fever, chills, chest pain, shortness of breath. Related Data Home Medications ?Medication ?Instructions ?Recorded ?Confirmed buprenorphine 8 mg-naloxone 2 mg 1 film sublingual 3XD 06/06/25 06/06/25 sublingual film (Suboxone) buspirone 30 mg tablet 30 mg PO BID 06/06/25 06/06/25 quetiapine 300 mg tablet 300 mg PO ONCE PM 06/06/25 06/06/25 Previous Rx's ?Medication ?Instructions ?Recorded ondansetron 4 mg disintegrating 4 mg PO Q8H PRN nausea and 03/24/25 tablet vomiting #30 tabs hydroxyzine HCl 50 mg tablet 50 mg PO QID PRN anxiety #60 tabs 04/28/25 omeprazole magnesium 20 mg 40 mg (2 x 20 mg) PO DAILY #60 tabs 04/28/25 tablet,delayed release (Prilosec OTC) lorazepam 1 mg tablet (Ativan) 1 mg PO TID PRN anxiety #14 tabs 06/06/25 lorazepam 1 mg tablet 1 mg PO BID PRN anxiety #7 tabs 06/13/25 lorazepam 1 mg tablet 1 mg PO BID PRN anxiety #10 tabs 07/27/25 lorazepam 1 mg tablet 1 mg PO BID PRN anxiety #4 tabs 07/27/25 naloxone 4 mg/actuation nasal 4 mg intranasal Q2M PRN opioid 07/27/25 spray (Narcan) overdose #2 ea Allergies Allergy/AdvReac Type Severity Reaction Status Date / Time No Known Drug Allergies Allergy Verified 07/27/25 20:34 Review of Systems <Sachin Caruso PA-C - Last Filed: 08/27/25 19:36> Constitutional Constitutional: Denies chills, Denies fatigue, Denies fever(s), Denies frequent falls, Denies lethargy and Denies weakness Eyes Eyes: Denies change in vision, Denies eye discharge, Denies irritation and Denies loss of vision ENT Ears, Nose, Mouth, and Throat: Denies change in voice, Denies dizziness, Denies neck pain, Denies sore throat and Denies throat swelling Cardiovascular Cardiovascular: Denies chest pain, Denies irregular heart rhythm, Denies lightheadedness, Denies palpitations, Denies dyspnea, Denies dyspnea on exertion and Denies orthopnea Respiratory Respiratory: Denies cough, Denies dyspnea, Denies dyspnea on exertion and Denies wheezing Gastrointestinal Gastrointestinal: Reports abdominal pain, Denies change in bowel habits, Denies diarrhea, Reports nausea and Reports vomiting Musculoskeletal Musculoskeletal: Denies neck pain and Denies numbness Integumentary/Breasts Skin/Breast: Denies pruritus, Denies erythema, Denies rash and Denies wounds Neurologic Neurologic: Denies behavioral changes, Denies confusion, Denies dizziness, Denies frequent falls, Denies loss of vision, Denies numbness and Denies weakness Psychiatric Psychiatric: Denies anxiety, Denies behavioral changes, Denies confusion, Denies depression, Denies homicidal ideation and Denies suicidal ideation Endocrine Endocrine: Denies fatigue, Denies flushing and Denies palpitations Hematologic/Lymphatic Hematologic/Lymphatic: Denies easy bruising Allergic/Immunologic Allergic/Immunologic: Denies urticaria, Denies throat swelling and Denies wheezing Patient History <Sachin Caruso PA-C - Last Filed: 08/27/25 19:36> Medical History Rash of genitalia Medication refill Opiate dependence, continuous (01/12/17) Anxiety Surgical History No significant past surgical history Social History household members: family Smoking Status: Current every day smoker Smoking Status: Current every day smoker tobacco type: cigarettes and smokeless tobacco alcohol intake frequency: 3 or more drinks per day Alcohol type: hard liquor Exam <Sachin Caruso PA-C - Last Filed: 08/27/25 19:36> Narrative Exam Narrative: Const General:?cooperative, healthy appearing and comfortable [facility] Head:?normal to inspection Ears:?hearing grossly normal bilaterally Nose:?external nose normal Face and sinus:?normal facial exam and sinuses nontender Mouth:?oral mucosae normal Throat:?posterior oropharynx normal Eyes General:?appearance normal, both eyes and all related structures Neck Neck:?normal visual inspection and no lymphadenopathy noted Resp Effort & Inspection:?normal respiratory effort Auscultation:?clear to auscultation bilaterally Cardio Rate:?regular rate Rhythm:?regular rhythm GI Abdomen is soft, nondistended, nontender to palpation Neuro General:?patient alert, patient awake and patient oriented x3 Initial Vital Signs Initial Vital Signs: Vital Signs Temperature 98.8 F 08/27/25 11:35 Pulse Rate 107 H 08/27/25 11:35 Respiratory Rate 20 08/27/25 11:35 Blood Pressure 142/86 H 08/27/25 11:35 Pulse Oximetry 97 08/27/25 11:35 Oxygen Delivery Method Room Air 08/27/25 11:35 <Nichelle Ball DO - Last Filed: 08/28/25 10:05> Initial Vital Signs Initial Vital Signs: Vital Signs Temperature 98.8 F 08/27/25 11:35 Pulse Rate 107 H 08/27/25 11:35 Respiratory Rate 20 08/27/25 11:35 Blood Pressure 142/86 H 08/27/25 11:35 Pulse Oximetry 97 08/27/25 11:35 Oxygen Delivery Method Room Air 08/27/25 11:35 Course <Sachin Caruso PA-C - Last Filed: 08/27/25 19:36> Orders Ordered: Discontinued Medications Al Hydrox/Mg Hydrox/Simethicone 30 ml/ Lidocaine HCl 15 ml 0 ml PO NOW ONE Stop: 08/27/25 11:46 Last Admin: 08/27/25 11:57 Dose: 30 ml Documented By: JOHANN Famotidine (Famotidine 20 Mg Tablet) 40 mg PO NOW ONE Stop: 08/27/25 11:46 Last Admin: 08/27/25 11:57 Dose: 40 mg Documented By: JOHANN Ondansetron HCl (Ondansetron 4 Mg Odt) 4 mg SL NOW ONE Stop: 08/27/25 11:45 Last Admin: 08/27/25 11:57 Dose: 4 mg Documented By: JOHANN Vital Signs Vital signs: Vital Signs - 8 hr 08/27/25 11:35 Temperature 98.8 F Pulse Rate 107 H Respiratory Rate 20 Blood Pressure 142/86 H Pulse Oximetry 97 Oxygen Delivery Method Room Air <Nichelle Ball DO - Last Filed: 08/28/25 10:05> Orders Ordered: Discontinued Medications Al Hydrox/Mg Hydrox/Simethicone 30 ml/ Lidocaine HCl 15 ml 0 ml PO NOW ONE Stop: 08/27/25 11:46 Last Admin: 08/27/25 11:57 Dose: 30 ml Documented By: JOHANN Famotidine (Famotidine 20 Mg Tablet) 40 mg PO NOW ONE Stop: 08/27/25 11:46 Last Admin: 08/27/25 11:57 Dose: 40 mg Documented By: JOHANN Ondansetron HCl (Ondansetron 4 Mg Odt) 4 mg SL NOW ONE Stop: 08/27/25 11:45 Last Admin: 08/27/25 11:57 Dose: 4 mg Documented By: JOHANN Vital Signs Vital signs: Vital Signs - 8 hr 08/27/25 11:35 Temperature 98.8 F Pulse Rate 107 H Respiratory Rate 20 Blood Pressure 142/86 H Pulse Oximetry 97 Oxygen Delivery Method Room Air MDM - Abdominal Pain <Sachin Caruso PA-C - Last Filed: 08/27/25 19:36> MDM Narrative Medical decision making narrative: 39-year-old male presents to the ED with 2 days of abdominal pain, nausea, vomiting. It is reassuring to note that patient has a benign abdominal exam. No indication for imaging at this time. Will give Zofran, GI cocktail, Pepcid AC. Will reassess. Patient received the medications, eloped prior to reassessment. Medical records reviewed: Yes Discharge Plan Departure Patient Disposition: Left Against Medical Advice Clinical Impression: Left against medical advice Prescriptions: No Action ondansetron 4 mg tablet,disintegrating 4 mg PO Q8H PRN (Reason: nausea and vomiting) Qty: 30 0RF hydroxyzine HCl 50 mg tablet 50 mg PO QID PRN (Reason: anxiety) Qty: 60 0RF omeprazole magnesium [Prilosec OTC] 20 mg tablet,delayed release (DR/EC) 40 mg PO DAILY Qty: 60 0RF quetiapine 300 mg tablet 300 mg PO ONCE PM buspirone 30 mg tablet 30 mg PO BID buprenorphine-naloxone [Suboxone] 8-2 mg film 1 film sublingual 3XD lorazepam [Ativan] 1 mg tablet 1 mg PO TID PRN (Reason: anxiety) Qty: 14 0RF lorazepam 1 mg tablet 1 mg PO BID PRN (Reason: anxiety) Qty: 7 0RF lorazepam 1 mg tablet 1 mg PO BID PRN (Reason: anxiety) Qty: 10 0RF lorazepam 1 mg tablet 1 mg PO BID PRN (Reason: anxiety) Qty: 4 0RF naloxone [Narcan] 4 mg/actuation spray,non-aerosol 4 mg intranasal Q2M PRN (Reason: opioid overdose) Qty: 2 0RF Rx Instructions: spray 1 dose into ONE nostril; alternate nostrils w each dose until help arrives Stand Alone Forms: Patient Portal/API, Against Med. Advice ([place]) ED Sign-out <Nichelle Ball DO - Last Filed: 08/28/25 10:05> Cosign ED Attending Elvin Attestation: I was immediately available in the department for consultation.
== END 2025-08-27 13:25 | disposition left against medical advice (07) ==
PROVIDERS: Emergency Provider Student in an Organized Health Care Education/Training Program; PCP Family Medicine
DX: R10.13 Epigastric pain (principal); Z53.21 Procedure and treatment not carried out due to patient leaving prior to being seen by health care provider
CPT/HCPCS: 99283; A9270